=== PATIENT | male | born 1940 | race Caucasian/White ===

== ENCOUNTER → 2022-06-21 10:57 | Outpatient (BNVA) | payer MEDICARE, SELFPAY | PROVIDERS: PCP Internal Medicine; Visit Provider Nurse Practitioner Family | DX: F41.9 Anxiety disorder, unspecified (principal); R25.1 Tremor, unspecified; M54.2 Cervicalgia; Z63.6 Dependent relative needing care at home | CPT/HCPCS: 99202 ==

== ENCOUNTER 2023-12-09 10:39 | Outpatient (AMB) | payer MEDICARE, MEDICAID, SELFPAY ==
--- NOTE | 2023-12-09 11:08 | MHC.OFFVIS ---
Intake Vital Signs 12/09/23 11:29 Height 5 ft 8 in Weight 1754 lb BMI 266.7 BP 124/60 Blood Pressure Location Lt brachial Position Sitting Pulse 68 Pulse Source Pulse Oximeter Pulse Oximetry (%) 98 Oxygen Delivery Method Room Air Intake Visit Reasons: Follow up-CONF Intake Note: Patient presents for F/U. Looses balance occasionally ever since his surgery 05/25/23. Right hand shakes a little while drinking coffee and left hand shakes 2x. Allergies morphine Allergy (Severe, Verified 12/09/23 11:21) Nausea oxycodone [From PERCOCET] Allergy (Intermediate, Verified 12/09/23 11:21) VOMITING acetaminophen [Percocet] Allergy (Unknown, Verified 12/09/23 11:21) Rash peanut [PEANUT] Allergy (Unknown, Verified 12/09/23 11:21) UNKNOWN HPI HPI Comments History of Present Illness Details 83-yr-old male presents for f/u visit, accompanied by his dtr Anusha. Pt reports the following interval medical history changes: In June 2023, patient reports he collapsed at a function. He was brought to [facility], per patient he underwent cardiac stent placement x2 and a triple a repair. Recovery was complicated by renal failure, and he required ICU placement and a total of a 6 week hospitalization. He then did 3 weeks of post hospital rehab. He has since been returned home. He has recently completed cardiac rehab, and has graduated to do a step-down cardiac rehab program. He is followed by Dr. Hill at [facility]iology at the [facility]. He does also continue to have right flank pain since the hospitalization, was seen by renal and has been referred to urology. Since, he has not felt the same. Sometimes he is off balance. He is noticing some tremor. He is noticing more anxiety, also notes that he has lost his and his son in the last year. He wonders if there is a better medication for anxiety, he has been on citalopram 40 mg for years he states. ADL's: Ind Swallowing: Denies any issues Cough: Has had a cough in the last few months- since the sx Drooling: Denies any issues Orthostatic lightheadedness: Denies any issues Constipation: Denies any issues Urinary symptoms: Right flank pain- has seen renal and been referred to urology. Tremor: RUE tremor w/ drinking a cup of coffee. Twice has had marked LUE rest tremor Dyskinesia: Denies Stiffness: Denies Gait changes: Since the sx, can lose his balance, he attributes this to his right ankle. Freezing: Denies Falls: One recent fall- tripped over someone else's suitcase. Mood: Feeling some depression and anxiety Hallucinations: Denies Memory: No issues Sleep: Sleeping well Exercise: Has completed cardiac rehab- has graduated at 36 wks, and restarting step-down cardiac rehab- no longer needs heart monitor.. [facility] Medical History (Updated 06/21/22 @ 13:36 by ZARIA Cazares) Caregiver burden Trigeminal neuralgia Insomnia Erectile dysfunction Seizure DJD (degenerative joint disease) Hypercholesteremia GERD (gastroesophageal reflux disease) HTN (hypertension) Gout HLD (hyperlipidemia) Thoracic aortic aneurysm Moderate obstructive sleep apnea Chronic bronchitis CAD (coronary artery disease) ANTONY and COPD overlap syndrome Lumbar spinal stenosis Bilateral high frequency sensorineural hearing loss Surgical History H/O aortic valve repair Hx of appendectomy Hx of nasal septoplasty Hx of tonsillectomy Hx of cataract surgery History of carpal tunnel release Family History Mother Myocardial infarction Father Cirrhosis with alcoholism Maternal Grandmother Coronary artery disease Maternal Grandmother Coronary artery disease Brother No problems noted. Brother No problems noted. Brother No problems noted. Social History Patient Tobacco Use Status: Former Tobacco user Review of Systems Const All systems reviewed & are unremarkable except as noted in HPI and below Physical Exam Vital Signs: Last Vital Signs Pulse 68 12/09/23 11:29 BP 124/60 12/09/23 11:29 Pulse Ox 98 12/09/23 11:29 Oxygen Delivery Method Room Air 12/09/23 11:29 BMI result Body Mass Index 266.7 Const General: cooperative and no acute distress Resp Effort & Inspection: normal respiratory effort and able to speak in complete sentences Neuro Other: General: A&O x's 3 Expression: Intact Voice: Hoarse at times Tremor: Very mild LUE postural tremor. Tone: Mild left tone Dyskinesia: None FFM: Ok Foot taps: Slight decrease on left Gait: Stands easily, good stride, stride okay, possibly low floor clearance, a bit quick during turning otherwise steady gait. Psych: Pleasant affect Assessment & Plan Assessment & Plan (1) Tremor: Code(s): R25.1 - Tremor, unspecified (2) Anxiety: Code(s): F41.9 - Anxiety disorder, unspecified Plan As patient has had a recent cardiac event, it would be reasonable to wean patient off of citalopram 40 mg q.d., and cross titrate to duloxetine, which may help with pain and anxiety symptoms as well. Patient will discuss with his PCP, however if needed, we can make this transition for him. Continue cardiac rehab. Advised patient to take his turns more slowly. Tremor is mild, would not initiate anti tremor medication at this time. Follow up in 6 months or sooner as needed. Coding Level of Care Code Est Pt Level 3 (07875) Diagnoses Tremor R25.1 Anxiety F41.9
[2023-12-09 11:29] VITALS: BP 124/60; PULSE 68; O2SAT 98; BMI 266.7
== END 2023-12-09 12:14 | disposition home or self-care (01) ==
PROVIDERS: PCP Internal Medicine; Visit Provider Nurse Practitioner Family
DX: R25.1 Tremor, unspecified (principal); F41.9 Anxiety disorder, unspecified
CPT/HCPCS: 99213

== ENCOUNTER → 2023-12-09 10:39 | Outpatient (BNVA) | payer MEDICARE, MEDICAID, SELFPAY | PROVIDERS: PCP Internal Medicine; Visit Provider Nurse Practitioner Family | DX: R25.1 Tremor, unspecified (principal); F41.9 Anxiety disorder, unspecified | CPT/HCPCS: 99212 ==

== ENCOUNTER 2024-08-10 14:19 | Outpatient (AMB) | payer MEDICARE, MEDICAID, SELFPAY ==
--- NOTE | 2024-08-10 15:04 | MHC.OFFVIS ---
Vital Signs 08/10/24 15:05 Height 5 ft 8 in Weight 175 lb BMI 26.6 BP 144/62 H Blood Pressure Location Rt brachial Position Sitting Pulse 76 Pulse Source Pulse Oximeter Pulse Oximetry (%) 95 Oxygen Delivery Method Room Air Intake Visit Reasons: Follow up Sales Support Specialist Required: No Accompanied by: Self / Same As Patient Allergies morphine Allergy (Severe, Verified 08/10/24 15:08) Nausea oxycodone [From PERCOCET] Allergy (Intermediate, Verified 08/10/24 15:08) VOMITING acetaminophen [Percocet] Allergy (Unknown, Verified 08/10/24 15:08) Rash HPI Comments Details: 83-yr-old male presents for f/u visit for anxiety and tremors. Interval Medical History June 2023 Cardiac Strent Placement x 2 and a triple repair. ICU 6 weeks recovery then [address] Hill, [facility] Cardiology. Renal failure and R. flank pain, since hospitalization, seen by renal and referred to Urology. Says he as not felt the same since. He is off balance, notices tremors and more anxious sincel he lost his and son in the last year. He has been on Citalopram 40mg for years and wants something to take the edge off, as he has become less tolerable with not being able to find the remote and completing tasks. Mood, feels more anxious and depressed, easily triggered. 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 He is having difficulty with picking up a cup of coffee and using his knife and fork, utensils when he eats feels more tremulous. ADL's: Ind Swallowing: Denies any issues Cough: Denies Drooling: Denies any issues Orthostatic lightheadedness: Denies any issues Constipation: Denies any issues Urinary symptoms: Right flank pain- has seen renal and been referred to urology, Dr. Lynda Ellison. Tremor: RUE tremor w/ drinking a cup of coffee. Twice has had marked LUE rest tremor Dyskinesia: Denies Stiffness: Denies Gait changes: Since the sx, can lose his balance, difficult to lift his golf ball off the T when he bends down, d/t back pain. Freezing: Denies Falls: Denies Mood: Feeling depressed and anxious, irritable. Hallucinations: Denies Memory: Denies Sleep: Sleeping well Exercise: Has completed cardiac rehab- has graduated at 36 wks, and restarting step-down cardiac rehab- no longer needs heart monitor. [facility] Medical History (Updated 12/09/23 @ 17:27 by ZARIA Cazares) Caregiver burden Trigeminal neuralgia Insomnia Erectile dysfunction Seizure DJD (degenerative joint disease) Hypercholesteremia GERD (gastroesophageal reflux disease) HTN (hypertension) Gout HLD (hyperlipidemia) Thoracic aortic aneurysm Moderate obstructive sleep apnea Chronic bronchitis CAD (coronary artery disease) ANTONY and COPD overlap syndrome Lumbar spinal stenosis Bilateral high frequency sensorineural hearing loss Surgical History H/O aortic valve repair Hx of appendectomy Hx of nasal septoplasty Hx of tonsillectomy Hx of cataract surgery History of carpal tunnel release Family History Mother Myocardial infarction Father Cirrhosis with alcoholism Maternal Grandmother Coronary artery disease Maternal Grandmother Coronary artery disease Brother No problems noted. Brother No problems noted. Brother No problems noted. Social History Patient Tobacco Use Status: Former Tobacco user Review of Systems Const All systems reviewed & are unremarkable except as noted in HPI and below Physical Exam Vital Signs: Last Vital Signs Pulse 76 08/10/24 15:05 BP 144/62 H 08/10/24 15:05 Pulse Ox 95 08/10/24 15:05 Oxygen Delivery Method Room Air 08/10/24 15:05 BMI result Body Mass Index 26.6 Const General: cooperative and no acute distress Resp Effort & Inspection: normal respiratory effort and able to speak in complete sentences Neuro Other: General: A&O x's 3 Expression: Intact Voice: Hoarse at times Tremor: Very mild LUE postural tremor. Tone: Mild left tone Dyskinesia: None FFM: Ok Foot taps: Slight decrease on left Gait: Stands easily, good stride, stride okay, possibly low floor clearance, a bit quick during turning otherwise steady gait. Psych: Pleasant affect Psych Appearance: grossly normal Speech and movement: Normal speech and movement present Affect: Labile affect present Attitude: cooperative Thought process: Normal thought process present Thought content: Normal thought content present Insight: Good insight present (Psych) Judgement: Good judgement present (Psych) Results Reviewed Results Reviewed: Request notes from Urology. Assessment & Plan Assessment & Plan (1) Anxiety: Code(s): F41.9 - Anxiety disorder, unspecified Category: Medical (2) Tremor: Code(s): R25.1 - Tremor, unspecified Category: Medical (3) Cervicalgia: Comment: mild right sided neck stiffness at times- no UE numbness/paresthesias/weakness. Code(s): M54.2 - Cervicalgia Category: Medical Plan Gait, balance is off he is having difficulty with rising from a low seated position, picking up golf ball off the T. PT - Will Evaluate and Treat with Strength training exercises. Mood Depression, irritability, Anxiety. Will start him on Buspirone 5mg PO BID, wait two weeks to see if this helps if not will make a medication dose adjustment. BP Elevated Will have patient follow up with BP in [facility], when he is picking up his medications, and again at home after taking his BP meds as directed. Patient is encouraged to drink 24-48 ounces of water daily or increase the water intake as he is not well hydrated and tends to forget to drink water through the day. Monitor BP and follow up with PCP or Renal, if the BP is not well managed in 2 weeks. He can call us at the clinic for any questions he may have with medication dose adjustments. Follow up in 4 months for tremors. Orders: Orders PT Evaluation and Treatment 08/10/24 R25.1 - Tremor, unspecified Medications: New buspirone 5 mg PO BID 30 tabs 3RF F41.9 - Anxiety disorder, unspecified, R25.1 - Tremor, unspecified Coding Level of Care Code Est Pt Level 4 (97914) Diagnoses Anxiety F41.9 Tremor R25.1 Cervicalgia M54.2 Time Spent (min) 30 Comment worsening
[2024-08-10 15:05] VITALS: BP 144/62; PULSE 76; O2SAT 95; BMI 26.6
== END 2024-08-10 15:54 | disposition home or self-care (01) ==
PROVIDERS: PCP Internal Medicine; Visit Provider Physician Assistant Medical
DX: F41.9 Anxiety disorder, unspecified (principal); R25.1 Tremor, unspecified; M54.2 Cervicalgia
CPT/HCPCS: 99214

== ENCOUNTER → 2024-08-10 14:19 | Outpatient (BNVA) | payer MEDICARE, MEDICAID, SELFPAY | PROVIDERS: PCP Internal Medicine; Visit Provider Nurse Practitioner Family | DX: F41.9 Anxiety disorder, unspecified (principal); R25.1 Tremor, unspecified; M54.2 Cervicalgia | CPT/HCPCS: 99212 ==

== ENCOUNTER 2024-11-18 12:37 | Outpatient (AMB) | payer MEDICARE, MEDICAID, SELFPAY ==
--- NOTE | 2024-11-18 13:05 | A.OFFVIS_ITS ---
Vital Signs 11/18/24 13:06 Height 5 ft 8 in Weight 180 lb BMI 27.4 BP 160/80 H Blood Pressure Location Lt brachial Position Sitting Pulse 62 Pulse Oximetry (%) 92 Oxygen Delivery Method Room Air Intake Visit Reasons: 6 Month F/U Intake Note: Patient presents follow up Tremors Floor Winder Required: No Allergies morphine Allergy (Severe, Verified 11/18/24 13:07) Nausea oxycodone [From PERCOCET] Allergy (Intermediate, Verified 11/18/24 13:07) VOMITING acetaminophen [Percocet] Allergy (Unknown, Verified 11/18/24 13:07) Rash Medication List - Last Reconciled 11/18/24 by ZARIA Cazares acetaminophen 325 mg PO Q6H PRN albuterol sulfate 90 mcg/actuation 2 inhalations inhalation Q4H PRN aspirin 1 tab PO DAILY atorvastatin 40 mg PO DAILY buspirone 5 mg PO BID citalopram 40 mg PO DAILY citalopram orally daily; 30 mg qd x's 1 wk, 20 mg qd x's 1 wk, 10mg qd x's 1 wk, 5mg qd x's 1 wk, then stop. 28 days clorazepate dipotassium 7.5 mg PO BID duloxetine 30 mg PO DAILY 30 days nprvrzhrkwj-hibifnivj-jgbhnnmt 100-62.5-25 mcg (Trelegy Ellipta) 1 ea inhalation DAILY gabapentin 300 mg PO BID isosorbide mononitrate ER mg PO labetalol 100 mg PO BID latanoprost 0.005% 1 drp ophthalmic (eye) BEDTIME lorazepam 0.5 mg PO DAILY PRN losartan 50 mg PO DAILY nitroglycerin 0.4 mg sublingual omeprazole 40 mg PO DAILY Oxygen Home Use 2.5L pantoprazole 40 mg PO DAILY sertraline 50 mg PO DAILY tamsulosin 0.4 mg PO DAILY zolpidem 5 mg PO BEDTIME PRN HPI Comments Details: 84-yr-old male presents for f/u visit of tremor, balance issues, and mood. He was last seen 3 months ago by our colleague Polo ORDONEZ. Pt reports he did not start PT- did not hear. He does not believe that he started buspirone prescribed at the last visit- though notes he could use some help with anxiety. He has continued on citalopram 40 mg daily. He has cardiology appt next week to f/u on having 4 episodes of left sided chest pain last week. He also has endoscopy scheduled for f/u of chronic diffuse abd pain w/o constipation- though notes carafate and PPI is helping some. GI is [place] [facility]. ADL's: Ind Swallowing: Denies any issues Cough: Denies Drooling: Denies any issues Orthostatic lightheadedness: Denies any issues Constipation: Denies any issues Urinary symptoms: He is being followed by renal and urology- states recent CT showed 2 spots on his right kideny- states ? specifc dx. Has f/u w/ renal soon. Tremor: RUE tremor only w/ drinking a cup of coffee. Twice has had marked LUE rest tremor Dyskinesia: Denies Stiffness: Denies at this time Gait changes: SFeels his balance is better. Freezing: Denies Falls: Denies interval falls Mood: Feeling some depression and anxiety Hallucinations: Denies Memory: No issues Sleep: Sleeping well w/ zolpidem. Denies parasomnias. 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 Socialization: States since picking up this part-time job, he has made some friends through work, and has a new girlfriend Magda- though states this has caused some tension with his children. [facility] Medical History (Updated 11/18/24 @ 18:46 by ZARIA Cazares) Caregiver burden Trigeminal neuralgia Insomnia Erectile dysfunction Seizure DJD (degenerative joint disease) Hypercholesteremia GERD (gastroesophageal reflux disease) HTN (hypertension) Gout HLD (hyperlipidemia) Thoracic aortic aneurysm Moderate obstructive sleep apnea Chronic bronchitis CAD (coronary artery disease) ANTONY and COPD overlap syndrome Lumbar spinal stenosis Bilateral high frequency sensorineural hearing loss Surgical History H/O aortic valve repair Hx of appendectomy Hx of nasal septoplasty Hx of tonsillectomy Hx of cataract surgery History of carpal tunnel release Family History Mother Myocardial infarction Father Cirrhosis with alcoholism Maternal Grandmother Coronary artery disease Maternal Grandmother Coronary artery disease Brother No problems noted. Brother No problems noted. Brother No problems noted. Social History Patient Tobacco Use Status: Former Tobacco user Physical Exam Vital Signs: Last Vital Signs Pulse 62 11/18/24 13:06 BP 160/80 H 11/18/24 13:06 Pulse Ox 92 11/18/24 13:06 Oxygen Delivery Method Room Air 11/18/24 13:06 BMI result Body Mass Index 27.4 Const General: cooperative and no acute distress Resp Effort & Inspection: normal respiratory effort and able to speak in complete sentences Neuro Other: General: A&O x's 3 Expression: Intact Voice: Hoarse at times Tremor: Very mild LUE postural tremor. Writing sample: BUE Archimede's spiral, mild tremor still legible, more prominent left. Sentence overall legible without tremor. Tone: Mild BUE tone and elbows Dyskinesia: None FFM: Slight decreased some left. Foot taps: Slight decrease on left Gait: Stands easily, good stride, stride okay, overall steady gait Psych: Pleasant affect Assessment & Plan Assessment & Plan (1) Tremor: Comment: Possible ET plus with BUE left greater than right tremor, mild rigidity in elbows, mild left bradykinesia. Code(s): R25.1 - Tremor, unspecified Category: Medical (2) Anxiety: Code(s): F41.9 - Anxiety disorder, unspecified Category: Medical Plan Discussed again the as patient has ongoing anxiety, and episodes of chest pain with history of cardiac event, it would be reasonable to wean patient off of citalopram 40 mg q.d., and cross titrate to duloxetine, which may help with pain and anxiety symptoms as well. Discontinue buspirone order, as patient has not started it. Patient agrees to plan. Week 1 citalopram 40 mg daily- while waiting for new order to arrive. Week 2 citalopram 30 mg daily x1 week Week 3 citalopram 20 mg daily x1 week and start duloxetine 30 mg daily in the morning Week 4 citalopram 10 mg daily x1 week and continue duloxetine 30 mg daily in the morning Week 5 citalopram 5 mg daily x1 week then stop. And continue duloxetine 30 mg daily in the morning Week 6 duloxetine 30 mg daily in morning. Between week 5 and 6, we will reach out to patient to assess his status, which time we will consider increasing duloxetine further to 40-60 mg daily in a.m. Written instructions given to patient. Balance has improved, we will hold on PT order for now. Continue regular physical activity- within cardiology's recommendations. Continue regular cognitive and socially stimulating activities. Advised patient to take his turns more slowly. Tremor is mild, would not initiate anti tremor medication at this time. However, encouraged to use a covered coffee cup whenever drinking hot beverages. Follow-up with Cardiology, Nephrology, and endoscopy/GI as scheduled. Will follow-up upon review of above and patient to follow-up in clinic in 3-4 months or sooner prn. Medications: New citalopram orally daily; 30 mg qd x's 1 wk, 20 mg qd x's 1 wk, 10mg qd x's 1 wk, 5mg qd x's 1 wk, then stop. 28 days 49 tabs 0RF duloxetine 30 mg PO DAILY 30 days 30 caps 1RF Coding Level of Care Code Est Pt Level 4 (21278) Diagnoses Tremor R25.1 Anxiety F41.9
[2024-11-18 13:06] VITALS: BP 160/80; PULSE 62; O2SAT 92; BMI 27.4
--- OUTSIDE RECORDS SUMMARY | 2024-11-18 14:58 | XMS_ITS | Encounter Summary ---
Author Organization [facility] Address [address] [place] [address] Care Team Providers Care Electrician Ship Name Role Phone Rafael Angeles MD Primary Care Provider [phone] Rafael Angeles MD Primary Care Provider [phone] Olga Villareal MD Unavailable [phone] Rafy Dawkins Unavailable Alana Quiñonez NP Unavailable [phone] Encounter Details Date Type Department Care Team Description 12/18/2018 [facility] Medical Records [address] [place] [id number] Nomi Dias MD [address] [place] [phone] Social History Tobacco Use Types Packs/Day Years Used Date Smoking Tobacco: Former Cigarettes 1 29 0 1957 - 09/01/1985 Smokeless Tobacco: Never Alcohol Use Standard Drinks/Week Comments Yes 0 (1 standard drink = 0.6 oz pur e alcohol) socially Sex Assigned at Date Recorded Male 04/05/2020 7:18 AM E [employer] Job Start Date Occupation Industry Not on file Not on file Not on file documented as of this encounter Plan of Treatment Not on file documented as of this encounter Visit Diagnoses Not on filedocumented in this encounter Care Teams Electrician Ship Relationship Specialty Start Date End Date Rafael Angeles MD [address] [place] [phone] PCP - General Internal Medicine 03/16/20 Rafael Angeles MD [address] [place] [address] [phone] PCP - General 04/01/16 03/15/20 Olga Villareal MD [address] [place] [address] Specialist Cardiology 07/18/21 Rafy Dawkins PA [address] [place] [phone] Specialist Cardiology 07/18/21 05/13/24 Alana Quiñonez, JOVANNA [address] [place] [address] [facility] [place] [address] Cardiology 10/21/23 documented as of this encounter
--- OUTSIDE RECORDS SUMMARY | 2024-11-18 14:58 | XMS_ITS | Encounter Summary ---
Author Organization [facility] Address [address] [place] [address] Care Team Providers Care Senior Program Analyst Name Role Phone Rafael Angeles MD Primary Care Provider Olga Villareal MD Unavailable [phone] Rafy Dawkins Unavailable Alana Quiñonez NP Unavailable [phone] Encounter Details Date Type Department Care Team Description 01/29/2022 Telephone Adult Medicine [address] [id number] Alana Franklin PA-C Social History Tobacco Use Types Packs/Day Years [...] file Not on file Not on file COVID-19 Exposure Response Date Recorded In the last 10 days, have yo u been in contact with someone who was confirmed or suspected to have Coronavirus/COVID-19? No / Unsure 01/29/2022 3:03 PM EDT documented as of this encounter Miscellaneous Notes * Telephone Encounter - Alana Franklin PA-C - 01/29/2022 10:20 PM EDT Can you please call tamiko with Users[employer] message from hip xray. He has not read the message. Hi Garo, ?? XRay of the hip itself is normal. There is some inflammation around the SI joint like we suspected and discussed in the office today. While you cannot take NSAIDs orally for inflammation, you would likely benefit from a short course of presnisone which you have taken in the past and can also help with inflammation of the joint and nerve. I am going to prescribe you 40mg of prednisone (2 20mg tabstaken together with breakfast) for 5 days. Take this first thing in the morning with food. It may make you jittery and can cause some swelling, increased appetite, and irritability. It is safe to continue with the tylenol and topical diclofenac. I am also going to refer you to physical therapy. Youcan call them to schedule an appointment in our [place] office. The number is [phone]. ?? If symptoms are not improving, please let me know. It was nice seeing you today. ?? Thank you Alana Franklin PA-C documented in this encounter Plan of Treatment Not on file documented as of this encounter Visit Diagnoses Not on filedocumented in this encounter Care Teams Senior Program Analyst Relationship Specialty Start Date End Date Rafael Angeles MD [address] [place] [phone] PCP - General Internal Medicine 03/16/20 Olga Villareal MD [address] [place] [phone] Specialist Cardiology 07/18/21 Rafy Dawkins PA [address] [place] [phone] Specialist Cardiology 07/18/21 05/13/24 Alana Quiñonez NP [address] [place] [address] [facility] [place] [address] Cardiology 10/21/23 documented as of this encounter
--- OUTSIDE RECORDS SUMMARY | 2024-11-18 14:58 | XMS_ITS | Encounter Summary ---
Author Organization [email or web address] [facility] Address [address] [place] [address] Care Team Providers Care Kayak Maker Name Role Phone Rafael Angeles MD Primary Care Provider Rafael Angeles MD Primary Care Provider [phone] Olga Villareal MD Unavailable [phone] Rafy Dawkins Unavailable Alana Quiñonez NP Unavailable [phone] Encounter Details Date Type Department Care Team Description 12/14/2016 Refill Adult Medicine [address] [phone] Zack Mora MD Social History Tobacco Use Types Packs/Day Years Used Date Smoking Tobacco: Former Cigarettes Q uit: 09/01/1985 Smokeless Tobacco: Never Comments:quit 25 yrs ago Alcohol Use Standard Drinks/Week Comments Yes 0 (1 standard drink = 0.6 oz pur e alcohol) 1 glass per day Sex Assigned at Date Recorded Male 04/05/2020 7:18 AM E DT Job Start Date Occupation Industry Not on file Not on file Not on file documented as of this encounter Miscellaneous Notes * Telephone Encounter - Zack Mora MD - 12/16/2016 5:29 PM EDT The patient is on diltiazem. He is switched over to 20 mg of Lipitor from 40 mg of simvastatin. 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 * Telephone Encounter - Viviana Barrera M.A. - 12/14/2016 4:45 PM EDT Component Value Date CHOL 150 01/19/2016 LDL 70 01/19/2016 HDL 64 01/19/2016 TRIG 82 01/19/2016 SGOT 26 01/19/2016 SGPT 22 01/19/2016 Last ov with pcp 11/06/16 * Telephone Encounter - Viviana Barrera M.A. - 12/14/2016 4:45 PM EDTFrom: Garo Davis To: Zack Mora MD Sent: 12/14/2016 8:11 AM EDT Subject: Medication Renewal Request Original authorizing provider: MD Garo Nagel would like a refill of the following medications: simvastatin (ZOCOR) 40 MG tablet [Zack Mora MD] Preferred pharmacy: [facility] [address] [place] [address]; LIN Comment: Medication renewals requested in this message routed to other providers: valsartan (DIOVAN) 160 MG tablet [Casi Raymond PA-C] documented in this encounter Plan of Treatment Not on file documented as of this encounter Visit Diagnoses Not on filedocumented in this encounter Care Teams Kayak Maker Relationship Specialty Start Date End Date Rafael Angeles MD [address] [place] [address] 22458 PCP - General Internal Medicine 03/16/20 Rafael Angeles MD [address] [place] [address] 12093 PCP - General 04/01/16 03/15/20 Olga Villareal MD [address] [place] [address] 41518 Specialist Cardiology 07/18/21 Rafy Dawkins PA [address] [place] [address] Specialist Cardiology 07/18/21 05/13/24 Alana Quiñonez NP [address] [place] [address] [facility] [place] [address] Cardiology 10/21/23 documented as of this encounter
--- OUTSIDE RECORDS SUMMARY | 2024-11-18 14:58 | XMS_ITS | Encounter Summary ---
Author Organization [facility] Address [address] [place] [address] Care Team Providers Care Studio Producer Name Role Phone Rafael Angeles MD Primary Care Provider [phone] Olga Villareal MD Unavailable [phone] Rafy Dawkins Unavailable Alana Quiñonez NP Unavailable Reason for Visit * Reason Onset Date Comments Mychart Rx Refill 04/11/2024 Encounter Details Date Type Department Care Team Description 04/11/2024 Refill Adult Medicine [address] [phone] Rafael Angeles MD [address] [place] [address] [phone] Mychart Rx Refill Social History Tobacco Use Types Packs/Day Years [...] encounter Miscellaneous Notes * Telephone Encounter - Viviana Barrera M.A. - 04/12/2024 11:01 AM EDT Lab Results Component Value Date NA 140 04/09/2024 K 4.0 04/09/2024 CO2 24 04/09/2024 CL 107 04/09/2024 BUN 14 04/09/2024 CREAT 1.11 04/09/2024 GLU 88 04/09/2024 CA 8.6 04/09/2024 GFR 66 04/09/2024 Pending appt 05/24/24 Last appt 04/09/24 documented in this encounter Plan of Treatment Not on file documented as of this encounter Visit Diagnoses Not on filedocumented in this encounter Care Teams Studio Producer Relationship Specialty Start Date End Date Rafael Angeles MD [address] [place] [address] 85797 PCP - General Internal Medicine 03/16/20 Olga Villareal MD [address] [place] [address] 20229 Specialist Cardiology 07/18/21 Rafy Dawkins PA [address] [place] [address] 96686 Specialist Cardiology 07/18/21 05/13/24 Alana Quiñonez NP [address] [place] [address] Dr [facility] [place] [place] [address] Cardiology 10/21/23 documented as of this encounter
--- OUTSIDE RECORDS SUMMARY | 2024-11-18 14:58 | XMS_ITS | Encounter Summary ---
Author Organization [facility] Address [address] [place] [address] Care Team Providers Care Home Security Alarm Installer Name Role Phone Rafael Angeles MD Primary Care Provider [phone] Rafael Angeles MD Primary Care Provider [phone] Olga Villareal MD Unavailable [phone] Rafy Dawkins Unavailable Alana Quiñonez NP Unavailable [phone] Encounter Details Date Type Department Care Team Description 11/25/2018 Release of Information Medical Records [address] [place] [id number] Abstract, Provider Social History Tobacco Use Types Packs/Day Years Used Date Smoking Tobacco: Former Cigarettes 1 29 0 1957 - 09/01/1985 Smokeless Tobacco: Never Alcohol Use Standard Drinks/Week Comments Yes 0 (1 standard drink = 0.6 oz pur e alcohol) 1-2 glass per day Sex Assigned at Date Recorded Male 04/05/2020 7:18 AM E DT Job Start Date Occupation Industry Not on file Not on file Not on file documented as of this encounter Plan of Treatment Not on file documented as of this encounter Visit Diagnoses Not on filedocumented in this encounter Care Teams Home Security Alarm Installer Relationship Specialty Start Date End Date Rafael Angeles MD [address] [place] [address] 68064 PCP - General Internal Medicine 03/16/20 Rafael Angeles MD [address] [place] [address] 64581 PCP - General 04/01/16 03/15/20 Olga Villareal MD [address] [place] [address] [phone] Specialist Cardiology 07/18/21 Rafy Dawkins PA [address] [place] [address] [phone] Specialist Cardiology 07/18/21 05/13/24 Alana Quiñonez, JOVANNA [address] [place] [address] [facility] [place] [address] Cardiology 10/21/23 documented as of this encounter
--- OUTSIDE RECORDS SUMMARY | 2024-11-18 14:58 | XMS_ITS | Encounter Summary ---
Author Organization [facility] Address [address] [place] [address] Care Team Providers Care Kit Planner Name Role Phone Rafael Angeles MD Primary Care Provider Rafael Angeles MD Primary Care Provider Olga Villareal MD Unavailable Rafy Dawkins Unavailable Alana Quiñonez NP Unavailable [phone] Encounter Details Date Type Department Care Team Description 11/11/2018 [facility] Medical Records [address] [place] [address] Abstract, Provider Social History Tobacco Use Types [...] on filedocumented in this encounter Care Teams Kit Planner Relationship Specialty Start Date End Date Rafael Angeles MD [address] [place] [address] 70198 PCP - General Internal Medicine 03/16/20 Rafael Angeles MD [address] [place] [address] 74628 PCP - General 04/01/16 03/15/20 Olga Villareal MD [address] [place] [address] [phone] Specialist Cardiology 07/18/21 Rafy Dawkins PA [address] [place] [address] [phone] Specialist Cardiology 07/18/21 05/13/24 Alana Quiñonez, JOVANNA [address] [place] [address] [facility] [place] [address] Cardiology 10/21/23 documented as of this encounter
--- OUTSIDE RECORDS SUMMARY | 2024-11-18 14:58 | XMS_ITS | Encounter Summary ---
Author Organization [facility] Address [address] [place] [address] Care Team Providers Care Family Development Extension Specialist Name Role Phone Rafael Angeles MD Primary Care Provider Olga Villareal MD Unavailable [phone] Rafy Dawkins Unavailable Alana Quiñonez NP Unavailable Encounter Details Date Type Department Care Team Description 12/01/2023 Refill Pulmonology - [place] [address] [facility] [address] [place] [address] Natalia Winston APRN [address] [facility] [address] [place] [address] Social History Tobacco Use Types Packs/Day Years [...] encounter Miscellaneous Notes * Telephone Encounter - Amandeep Dawkins CMA - 12/01/2023 9:22 AM EDT IZABELLA 08/18/23 NOV 02/17/24 documented in this encounter Plan of Treatment Not on file documented as of this encounter Visit Diagnoses Diagnosis Chronic obstructive pulmonary disease, unspecified COPD type (HCC) documented in this encounter Care Teams Family Development Extension Specialist Relationship Specialty Start Date End Date Rafael Angeles MD [address] [place] [address] 28658 PCP - General Internal Medicine 03/16/20 Olga Villareal MD [address] [place] [address] 72731 Specialist Cardiology 07/18/21 Rafy Dawkins PA [address] [place] [address] 54742 Specialist Cardiology 07/18/21 05/13/24 Alana Quiñonez, JOVANNA [address] [place] [address] [facility] [place] [address] Cardiology 10/21/23 documented as of this encounter
--- OUTSIDE RECORDS SUMMARY | 2024-11-18 14:58 | XMS_ITS | Encounter Summary ---
Author Organization [facility] Address [address] [place] [address] Care Team Providers Care Fibreglass Gun Hand Name Role Phone Rafael Angeles MD Primary Care Provider Olga Villareal MD Unavailable [phone] Rafy Dawkins Unavailable Alana Quiñonez NP Unavailable [phone] Encounter Details Date Type Department Care Team Description 10/30/2023 Telephone Adult Medicine [address] [phone] Rafael Angeles MD [address] [place] [address] [phone] Social History Tobacco Use Types Packs/Day Years [...] encounter Miscellaneous Notes * Telephone Encounter - Ned Crocker - 10/30/2023 4:39 PM EST N/a documented in this encounter Plan of Treatment Not on file documented as of this encounter Visit Diagnoses Not on filedocumented in this encounter Care Teams Fibreglass Gun Hand Relationship Specialty Start Date End Date Rafael Angeles MD [address] [place] [address] [phone] PCP - General Internal Medicine 03/16/20 Olga Villareal MD [address] [place] [address] [phone] Specialist Cardiology 07/18/21 Rafy Dawkins PA [address] [place] [address] [phone] Specialist Cardiology 07/18/21 05/13/24 Alana Quiñonez NP [address] [place] [address] [facility] [place] [address] Cardiology 10/21/23 documented as of this encounter
--- OUTSIDE RECORDS SUMMARY | 2024-11-18 14:58 | XMS_ITS | Encounter Summary ---
Author Organization [facility] Address [address] [place] [address] Care Team Providers Care Public Accountant Name Role Phone Rafael Angeles MD Primary Care Provider Olga Villareal MD Unavailable [phone] Rafy Dawkins Unavailable Alana Quiñonez NP Unavailable [phone] Encounter Details Date Type Department Care Team Description 04/21/2024 Pt. Non Urgent Medical Question Adult Medicine [address] [phone] Rafael Angeles MD [address] [place] [address] [phone] Social History Tobacco Use Types Packs/Day Years [...] encounter Miscellaneous Notes * Telephone Encounter - Luisa Bush M.A. - 04/21/2024 12:35 PM EDTFrom: Garo Susan To: Patrice Angeles Sent: 04/21/2024 12:18 PM EDT Subject: Pantoprazole Dr. Karthik I was in the emergency room on Friday regarding my stomach issues. They informed me to continue with Pantoprazole. I need a refill Please. thank You Garo documented in this encounter Plan of Treatment Not on file documented as of this encounter Visit Diagnoses Not on filedocumented in this encounter Care Teams Public Accountant Relationship Specialty Start Date End Date Rafael Angeles MD [address] [place] [address] 36766 PCP - General Internal Medicine 03/16/20 Olga Villareal MD [address] [place] [address] [phone] Specialist Cardiology 07/18/21 Rafy Dawkins PA [address] [place] [address] 35912 Specialist Cardiology 07/18/21 05/13/24 Alana Quiñonez, JOVANNA [address] [place] [address] [facility] [place] [address] Cardiology 10/21/23 documented as of this encounter
--- OUTSIDE RECORDS SUMMARY | 2024-11-18 14:58 | XMS_ITS | Encounter Summary ---
Author Organization [facility] Address [address] [place] [address] Care Team Providers Care Railway Switchman Name Role Phone Rafael Angeles MD Primary Care Provider [phone] Rafael Angeles MD Primary Care Provider [phone] Olga Villareal MD Unavailable [phone] Rafy Dawkins Unavailable Alana Quiñonez NP Unavailable [phone] Encounter Details Date Type Department Care Team Description 11/23/2018 Lens Grinding Machine Operator Report Medical Records [address] [place] [address] Lyle Pitt MD Social History Tobacco Use Types Packs/Day [...] on filedocumented in this encounter Care Teams Railway Switchman Relationship Specialty Start Date End Date Rafael Angeles MD [address] [place] [address]20 PCP - General Internal Medicine 03/16/20 Rafael Angeles MD [address] [place] [address] 06566 PCP - General 04/01/16 03/15/20 Olga Villareal MD [address] [place] [address] [phone] Specialist Cardiology 07/18/21 Rafy Dawkins PA [address] [place] [address] [phone] Specialist Cardiology 07/18/21 05/13/24 Alana Quiñonez, JOVANNA [address] [place] [address] [facility] [place] [address] Cardiology 10/21/23 documented as of this encounter
--- OUTSIDE RECORDS SUMMARY | 2024-11-18 14:58 | XMS_ITS | Encounter Summary ---
Author Organization [facility] Address [address] [place] [address] Care Team Providers Care Barrow Worker Name Role Phone Rafael Angeles MD Primary Care Provider Olga Villareal MD Unavailable [phone] Rafy Dawkins Unavailable Alana Quiñonez NP Unavailable [phone] Encounter Details Date Type Department Care Team Description 04/26/2024 Telephone Gastroenterology - [place] [address] [facility] [address] [place] [phone] Khanh Freeman PA-C [address] [address] Social History Tobacco Use Types Packs/Day Years [...] encounter Miscellaneous Notes * Telephone Encounter - Jeannie Hatch - 04/28/2024 4:12 PM EDT forms are in your bin for review, thanks. * Telephone Encounter - Khanh Freeman PA-C - 04/26/2024 6:02 PM EDT Patient was seen at [facility] ER on April 20. Please obtain results. Thank you documented in this encounter Plan of Treatment Not on file documented as of this encounter Visit Diagnoses Not on filedocumented in this encounter Care Teams Barrow Worker Relationship Specialty Start Date End Date Rafael Angeles MD [address] [place] [address]703 PCP - General Internal Medicine 03/16/20 Olga Villareal MD [address] [place] [address] 34860 Specialist Cardiology 07/18/21 Rafy Dawkins PA [address] [place] [address] 11206 Specialist Cardiology 07/18/21 05/13/24 Alana Quiñonez, JOVANNA [address] [place] [address] [facility] [place] [place] [address] Cardiology 10/21/23 documented as of this encounter
--- OUTSIDE RECORDS SUMMARY | 2024-11-18 14:58 | XMS_ITS | Encounter Summary ---
Author Organization [facility] Address [address] [place] [address] Care Team Providers Care Gold Nib Grinder Name Role Phone Rafael Angeles MD Primary Care Provider [phone] Olga Villareal MD Unavailable [phone] Rafy Dawkins Unavailable Alana Quiñonez NP Unavailable [phone] Encounter Details Date Type Department Care Team Description 10/13/2023 Pt. Referral Request [facility] [place] [address] [place] [address] Md [place] Social History Tobacco Use Types Packs/Day Years [...] on filedocumented in this encounter Care Teams Gold Nib Grinder Relationship Specialty Start Date End Date Rafael Angeles MD [address] [place] [address] PCP - General Internal Medicine 03/16/20 Olga Villareal MD [address] [place] [address] 27968 Specialist Cardiology 07/18/21 Rafy Dawkins PA [address] [facility] [place] [address] Specialist Cardiology 07/18/21 05/13/24 Alana Quiñonez, JOVANNA [address] [place] [address] [facility] [place] [address] Cardiology 10/21/23 documented as of this encounter
--- OUTSIDE RECORDS SUMMARY | 2024-11-18 14:58 | XMS_ITS | Encounter Summary ---
Author Organization [facility] Address [address] [place] [address] Care Team Providers Care Paste Mixer Liquid Name Role Phone Rafael Angeles MD Primary Care Provider [phone] Olga Villareal MD Unavailable [phone] Rafy Dawkins Unavailable Alana Quiñonez NP Unavailable [phone] Encounter Details Date Type Department Care Team Description 02/14/2021 Telephone Adult Medicine [address] [phone] Rafael Angeles MD [address] [place] [address] [phone] Social History Tobacco Use Types Packs/Day Years [...] Exposure Response Date Recorded In the last month, have you been in contact with someone who was confirmed or suspected to have Coronavirus / COVID-19? Unable to assess 01/15/2021 11:02 AM EDT documented as of this encounter Miscellaneous Notes * Telephone Encounter - Chidi Lewis M.A. - 02/14/2021 12:00 PM EDT Pt scheduled w/ Dr. Angeles for 05/24/21. * Telephone Encounter - Chidi Lewis M.A. - 02/14/2021 12:00 PM EDT ----- Message from Garo Davis sent at 02/06/2021 8:45 AM EDT ----- Regarding: RE:Appointment needed Book my Appt. with Alana. Thank You documented in this encounter Plan of Treatment Not on file documented as of this encounter Visit Diagnoses Not on filedocumented in this encounter Care Teams Paste Mixer Liquid Relationship Specialty Start Date End Date Rafael Angeles MD [address] [place] [address] 52914 PCP - General Internal Medicine 03/16/20 Olga Villareal MD [address] [place] [address] 63596 Specialist Cardiology 07/18/21 Rafy Dawkins PA [address] [place] [address] 73126 Specialist Cardiology 07/18/21 05/13/24 Alana Quiñonez, JOVANNA [address] [place] [address] [facility] [place] [address] Cardiology 10/21/23 documented as of this encounter
--- OUTSIDE RECORDS SUMMARY | 2024-11-18 14:58 | XMS_ITS | Encounter Summary ---
Author Organization [facility] Address [address] [place] [address] Care Team Providers Care Waitstaff Name Role Phone Rafael Angeles MD Primary Care Provider [phone] Olga Villareal MD Unavailable [phone] Rafy Dawkins Unavailable Alana Quiñonez NP Unavailable [phone] Encounter Details Date Type Department Care Team Description 08/12/2023 [facility] Medical Records [address] [place] [phone] Abstract, Provider Social History Tobacco Use Types [...] on filedocumented in this encounter Care Teams Waitstaff Relationship Specialty Start Date End Date Rafael Angeles MD [address] [place] [address] PCP - General Internal Medicine 03/16/20 Olga Villareal MD [address] [place] [address] 0[address]20 Specialist Cardiology 07/18/21 Rafy Dawkins PA [address] [place] [address] Specialist Cardiology 07/18/21 05/13/24 Alana Quiñonez NP [address] [place] [address] Dr [facility] [place] [address] Cardiology 10/21/23 documented as of this encounter
--- OUTSIDE RECORDS SUMMARY | 2024-11-18 14:58 | XMS_ITS | Encounter Summary ---
Author Organization [place] [address] Care Team Providers Care Supervisor Winter Name Role Phone Rafael Angeles MD Primary Care Provider [phone] Reason for Visit * Reason Onset Date Comments Chest Pain 09/29/2024 Encounter Details Date Type Department Care Team (Late st Contact Info) Description 09/29/2024 Nurse Triage Adult Medicine [address] [phone] Rafael Angeles MD [address] [place] [id number] Chest Pain Social History Tobacco Use Types Packs/Day Years Used Date Smoking Tobacco: Former Cigarettes 1 28.5 0 1957 - 09/01/1985 Smokeless Tobacco: Never Alcohol Use Standard Drinks/Week Comments Yes 0 (1 standard drink = 0.6 oz pur e alcohol) Sex and Gender Information Value Date Recorded Sex Assigned at Not on file Legal Sex Male 10:46 AM EST Gender Identity Not on file Sexual Orientation Not on file documented as of this encounter Progress Notes * Rama Morales RN - 09/29/2024 4:18 PM EST Called pt and advised him to go to the ER for further evaluation and treatment r/t his age an risk factors per Radha Rm. He is not in agreement with this plan. Pt advised his appointment tomorrow has been cancelled. * MERY Oh - 09/29/2024 4:16 PM EST Patient needs to go to ER for work up/evaluation of his chest pain. Thank you * Rama Morales RN - 09/29/2024 4:02 PM EST An appointment was made for him to be seen in the office tomorrow at 11:30 am with Regine Smith andhe is in agreement with this plan. His BP over the past 3 days has been; 09/29/24 150/74, 77; 09/28/24 156/77, 75 and 09/27/24 165/75, 77. Reason for Disposition [1] Chest pain lasting < 5 minutes AND [2] has not taken prescribed nitroglycerin Answer Assessment - Initial Assessment Questions 1. LOCATION: Where does it hurt? He is reporting left sided chest pain 2. RADIATION: Does the pain go anywhere else? (e.g., into neck, jaw, arms, back) No radiation 3. ONSET: When did the chest pain begin? (Minutes, hours or days) Last episode was today. He had another episode last week. 4. PATTERN: Does the pain come and go, or has it been constant since it started? Does it get worse with exertion? Intermittent. He states the pain lasts < 2 seconds and subsides. He is reporting 1 episode a daytoday and one day last week 5. DURATION: How long does it last (e.g., seconds, minutes, hours) 1-2 seconds 6. SEVERITY: How bad is the pain? (e.g., Scale 1-10; mild, moderate, or severe) - MILD (1-3): Doesn't interfere with normal activities. - MODERATE (4-7): Interferes with normal activities or awakens from sleep. - SEVERE (8-10): Excruciating pain, unable to do any normal activities. He rates the pain as 8/10 7. CARDIAC RISK FACTORS: Do you have any history of heart problems or risk factors for heart disease? (e.g., angina, prior heart attack; diabetes, high blood pressure, high cholesterol, smoker, or strong family history of heart disease) He has HTN, angina years ago, s/p TAVR 8. PULMONARY RISK FACTORS: Do you have any history of lung disease? (e.g., blood clots in lung, asthma, emphysema, control pills) COPD. No history of blood clots in his lungs 9. CAUSE: What do you think is causing the chest pain? Unknown 10. OTHER SYMPTOMS: Do you have any other symptoms? (e.g., dizziness, nausea, vomiting, sweating,fever, difficulty breathing, cough) No other symptoms 11. : Is there any chance you are ? When was your last menstrual period? No . He is reporting increased stress r/t family stressors. Protocols used: Chest Pain-A-AH * Talia Denson - 09/29/2024 3:47 PM EST Patient call requires triage: Symptoms patient is presenting C/O random pains in chest no other symptoms How long has patient had these symptoms?: at least 2 months For ALL patients calling to schedule any appointment (routine, sick visit, follow up, consult, etc.) in the outpatient setting please ask the following questions: Do you have fever of higher than 101, sore throat with difficulty swallowing or severe shortness ofbreath? no If YES to any of these above symptoms, send a message to triage and do not book. Red dot. If no, an audio or video visit should be booked. Have you had close contact with someone with Coronavirus in the last 14 days? no Have you traveled abroad? no Have you traveled recently to another state outside of [place], [place], [place], [place], [place], [place], [place]? no o If yes, did you quarantine for 14 days or have a negative covid test? no If yes to any of the above, patient is not to be scheduled in office until after 14 day quarantine or negative covid test. If pain or injury related was it due to an accident at work or from a motor vehicle accident? If yes, date of accident/Injury: No If yes, gather [employer] insurance information [employer] Party Information: not applicable PCP: Rafael Angeles MD Payor: [employer] / Plan: [facility] MED[facility]VANTAGE / Product Type: *No Product type* / documented in this encounter Plan of Treatment Upcoming Encounters Date Type Department Care Team (Late st Contact Info) Description 11/22/2024 8:50 AM EDT Office Visit [facility] Cardiology [facility] [address] [facility] [address] [place] [phone] Olga Villareal MD [address] [place] [address] 11/23/2024 1:40 PM EDT Consult Gastroenterology - [place] [address] [place] [phone] Indiana Zamarripa NP 175 [facility] 200 [place] [address] 11/30/2024 11:30 AM EDT Office Visit Adult Medicine [address] [phone] Rafael Angeles MD [address] [place] [phone] 12/07/2024 12:00 PM EDT Ancillary Procedure [facility] Cardiology [facility] [address] [facility] 101 [place] [address] 02/25/2025 11:00 AM EDT Office Visit Adult Medicine [facility] [address] [place] [phone] Rafael Angeles MD [address] [place] [phone] 05/03/2025 2:00 PM EDT Office Visit Pulmonolgy - [place] 175 [facility] 200 [place] [phone] Natalia Winston, PRIZE JACKER [address] [place] [address] [place] [address] 05/23/2025 11:00 AM EDT Ancillary Procedure [facility] [address] [place] [phone] documented as of this encounter Visit Diagnoses Not on filedocumented in this encounter Care Teams Supervisor Winter Relationship Specialty Start Date End Date Rafael Angeles MD [address] [place] [phone] PCP - General Internal Medicine 05/07/14 documented as of this encounter
--- OUTSIDE RECORDS SUMMARY | 2024-11-18 14:58 | XMS_ITS | Continuity of Care Document ---
Author Organization [facility] Address [address] [place] [address]- Care Team Providers Care Contact Center Professional Name Role Phone Karthik BAUER MD, Rafael Flores Primary Care Physician [phone] Encounter [facility] Date(s): 11/09/24 - 11/09/[address] [address]- Encounter Diagnosis Abdominal pain(Final) - 11/09/24 Discharge Disposition: A-D/C Home Attending Physician: Donnie MENDOZA, Ferny Agarwal Admitting Physician: Ferny Fields MD Referring Physician: Not on Staff, Referring MD Encounter Type: Disch ES Allergies, Adverse Reactions, Alerts Substance Criticality Severity Reaction Reaction Severity Status morphine Active Immunizations Given and Recorded Vaccine Date Status Refusal Reason SARS-CoV-2 (COVID-19) mRNA BNT-162b2 vac 10/25/20 Given Medications Ambien 5 mg oral tablet 1 tablet = 5 mg, By Mouth, Daily at bedtime, PRN as needed for insomnia, 0 Refills, Maintenance, 09/30/19 5:29:00 PM EST Start Date: 09/30/19 Status: Ordered Repeat number: 1 aspirin 81 mg oral tablet 1 tablet = 81 mg, By Mouth, Daily, 0 Refills, Maintenance, 04/02/16 11:27:29 PM EDT Start Date: 04/02/16 Status: Ordered Repeat number: 1 atorvastatin 10 mg oral tablet 1 tablet = 10 mg, By Mouth, Daily, 0 Refills, Maintenance, 11/09/24 12:40:00 PM EDT, Partial fill upon patient request if the prescription is for a schedule II opioid drug. Start Date: 11/09/24 Status: Ordered Repeat number: 1 Carafate 1 gm/10 ml oral suspension 10 mL = 1 Gm, By Mouth, 3 times a day before meals and bedtime, # 200 mL, 0 Refills, Maintenance, 11/09/24 7:24:00 PM EDT, [id number], Partial fill upon patient request if the prescription is for a schedule II opioid drug., 172, cm, 11/09/24 12:43:00 EDT, Height, 80.3, kg, 11/09/24 1 2:43:00 EDT, Dry Weight Start Date: 11/09/24 Stop Date: 11/14/24 Status: Ordered Quantity: 200.0 Unit: mL Repeat number: 1 citalopram 20 mg oral tablet 40 mg, 2, tablet, By Mouth, Daily, Refills 0, Maintenance, 10/03/17 1:13:00 PM EST Start Date: 10/03/17 Status: Ordered Repeat number: 1 clorazepate 7.5 mg oral tablet 1 tablet = 7.5 mg, By Mouth, 2 times a day, 0 Refills, Maintenance, 04/02/16 11:29:35 PM EDT Start Date: 04/02/16 Status: Ordered Repeat number: 1 diclofenac 1% topical gel APPLY 4 GRAMS TOPICALLY TO THE AFFECTED AREA FOUR TIMES DAILY NEEDED FOR JOINT PAIN Start Date: 05/04/24 Status: Ordered Repeat number: 1 Famotidine 0 Refills, Maintenance, 11/09/24 12:39:00 PM EDT, Partial fill upon patient request if the prescription is for a schedule II opioid drug. Start Date: 11/09/24 Status: Ordered Repeat number: 1 gabapentin 300 mg oral capsule 300 mg, 1, capsule, By Mouth, 2 times a day, Refills 0, Maintenance, 04/02/16 11:29:57 PM EDT Start Date: 04/02/16 Status: Ordered Repeat number: 1 labetalol 100 mg oral tablet = 100 mg, By Mouth, 2 times a day, 0 Refills, Maintenance, 07/11/23 8:57:00 AM EST, Tablet, Partialfill upon patient request if the prescription is for a schedule II opioid drug. Start Date: 07/11/23 Status: Ordered Repeat number: 1 LORazepam 0.5 mg oral tablet 1 tablet = 0.5 mg, By Mouth, 2 times a day, PRN as needed for anxiety, 0 Refills, Maintenance, 07/10/21 2:16:00 PM EST, Tablet, Partial fill upon patient request if the prescription is for a schedule II opioid drug. Start Date: 07/10/21 Status: Ordered Repeat number: 1 nitroglycerin 0.[address] 1 TABLET UNDER THE TONGUE EVERY 5 MINUTES NEEDED FOR CHEST PAIN Start Date: 05/04/24 Status: Ordered Repeat number: 1 omeprazole 40 mg oral enteric coated capsule TAKE 1 CAPSULE BY MOUTH DAILY Start Date: 05/04/24 Status: Ordered Repeat number: 1 sertraline 50 mg oral tablet TAKE 1/2 TABLET BY MOUTH EVERY NIGHT AT BEDTIME FOR 1 WEEK AND THEN INCREASE TO 1 TABLET EVERY NIGHT AT BEDTIME Start Date: 05/04/24 Status: Ordered Repeat number: 1 tamsulosin 0.4 mg oral capsule TAKE 1 CAPSULE BY MOUTH EVERY DAY 30 MINUTES AFTER THE SAME MEAL Start Date: 05/04/24 Status: Ordered Repeat number: 1 Trelegy Ellipta 100 mcg-62.5 mcg-25 mcg/inh inhalation powder INHALE 1 PUFF INTO THE LUNGS DAILY Start Date: 05/04/24 Status: Ordered Repeat number: 1 Zoloft 50 mg oral tablet 1 tablet = 50 mg, By Mouth, Daily, # 30 tablet, 0 Refills, Maintenance, 05/04/24 9:06:00 AM EDT, Tablet, Partial fill upon patient request if the prescription is for a schedule II opioid drug. 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 Anxiety Confirmed Active Aortic aneurysm Confirmed Active Ataxia Confirmed Active Chronic Bronchitis Confirmed Active CAD (coronary artery disease) Confirmed Active Depression Confirmed Active Esophageal dysmotility Confirmed Active Former cigarette smoker, 1 ppdX29 years, quit 09/01/1985 Confirmed Active Alcohol use, 1-2 glasses of wine Confirmed Active GERD (gastroesophageal reflux disease) Confirmed Active Gout Confirmed Active Cataract extraction status Confirmed Active Hyperlipemia Confirmed Active Hypertension Confirmed Active Pulmonary nodule, left lower lobe Confirmed Active ANTONY on CPAP Confirmed Active DJD (degenerative joint disease) Confirmed Active Results Radiology Reports * Exam Date Time Procedure Performing Provider Status 11/09/24 5:[address] Angio Abdomen Eric , Georgia L; Auth (Verified) Notes: (CT Angio Abdomen) Reason For Exam: Renal artery dissection suspected;Other: RESULT: CT Angio Abdomen EXAMINATION: CT Angio Chest, CT Angio Abdomen INDICATION: Hx of Present Illness: mid abd pain x2 weeks. Denies N V D fevers. Reports normal po intake and BMs. Denies pain on arrival to triage; Reason: Other:; Aortic disease, nontraumatic; Clinical Question(s): Other:; Aortic Dissection TECHNIQUE: An initial noncontrast CT of the chest was performed. Spiral CTA of the chest, abdomen, was performed after rapid IV contrast administration without cardiac gating triggered by an BERENICE on the aorta. Images are formatted in multiple planes using 2-D multiplanar and 3-D maximum intensity projection. Gated axial images through the aortic root were also acquired during a separate 2nd injection of IV contrast with separate reconstructions of this data set formatted in multiple planes using2-D multiplanar and 3-D maximum intensity projection. 100 cc of Isovue 300 was administered intravenously. Weight-based protocol using automatic tube modulation was used to optimize exposure parameter s. COMPARISONS: Multiple priors including 04/20/2024, 03/10/2024. 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 The repair is intact . Left-sided 3 vessel aortic arch. The great arch vessels are patent with no significant stenosis. Status post endovascular stenting of the descending thoracic aorta, beginning just distal to the origin of the left subclavian artery and ending near the diaphragmatic hiatus. The endovascular stent is patent with no significant stenosis. A small amount of contrast is again seen refluxing posteriorto the distal aspect of the stent, consistent with a small type IB endoleak (image 91, series 7), which is unchanged . The upper [place] aortic wall is essentially collapsed around the endovascular stent. No evidence of dissection. Pulmonary arteries are normal in caliber. No evidence of central pulmonary embolism on this study performed without dedicated technique. Abdominal aorta: Diffuse calcification. No aneurysm, dissection or significant stenosis. Celiac axis: Patent. No significant stenosis. Superior mesenteric artery: Patent. No significant stenosis. Right renal artery: Single patent artery. No significant stenosis. Left renal artery: Single patent artery. No significant stenosis. Inferior mesenteric artery: Patent. No significant stenosis. Right common iliac artery: Patent with moderate calcification. No significant stenosis. Left common iliac artery: Patent with mild calcification. No significant stenosis. NON-ANGIOGRAPHIC FINDINGS: Binder Stripper Machine View Findings, Lines and Tubes: None. Trachea and Airways: Secretions in the posterior trachea. Lungs and Pleura: No focal consolidation or pulmonary edema. Atelectasis in the lower lobes, especially the medial aspect of the left lower lobe, unchanged. No effusion or pneumothorax. Mediastinum and rajan: No mass or hematoma. No mediastinal or hilar lymphadenopathy. No esophageal abnormality. Normal thyroid. Heart: Heart is normal in size. No pericardial effusion. Moderate coronary artery calcification. Chest Wall Soft Tissues: No acute abnormality. Diaphragm and upper abdomen: No acute abnormality. Liver: Normal. Gallbladder: No CT evidence of gallbladder pathology. Bile ducts: No biliary ductal dilation. Spleen: Normal. Pancreas: Normal. Adrenal glands: Normal. Kidneys and ureters: No hydronephrosis. Punctate nephrolithiasis or upper pole of right kidney. Masslike heterogeneous enhancement encompassing the anterior midpole of the right kidney, image 114 series 7 with loss of cortical medullary differentiation represents a change from 04/20/2024. Unchanged 1 cm focus along the lateral mid pole of the right kidney image 120 series 7 possibly a small cyst with surrounding perinephric stranding/scarring not significantly changed from prior study. The left kidney is unremarkable. Gastrointestinal: No evidence of bowel obstruction. Moderate diverticulosis of the distal large bowel without evidence of acute diverticulitis. Peritoneum and retroperitoneum: No ascites or pneumoperitoneum. No omental or mesenteric lesions. Lymph nodes: No enlarged lymph nodes. Abdominal wall: Unremarkable. Bones: No acute abnormality. Diffuse degenerative changes. Intact median sternotomy. IMPRESSION: 1. No aortic dissection or acute aortic pathology. 2. Status post repair of the ascending aorta. The repair is intact and without acute complication. 3. Status post endovascular repair of the descending thoracic aorta. Stable small type IB endoleak. 4. Heterogeneous masslike enhancement encompassing the anterior mid pole of the right kidney representing a change from prior study. Unclear if this represents pyelonephritis or chronic changes resulting from a previously reported subcapsular hematoma. Additional imaging could be considered with ultrasound or multiphase pre and postcontrast CT/MRI using renal mass protocol. WSN: [id number] Ordering Physician: Ferny Fields Dictated By: Jaya MENDOZA, Rajinder Cifuentes Dictated Date/Time: 11/09/24 6:23 pm Reviewed By: Rajinder Lake MD Signed By: Rajinder Lake MD Signed Date/Time: 11/09/24 6:23 pm Transcribed By: CHANTAL Transcribed Date/Time: 11/09/24 6:04 pm * Exam Date Time Procedure Performing Provider Status 11/09/24 5:[address] Angio Chest Eric Georgia; Au th (Verified) Notes: (CT Angio Chest) Reason For Exam: Aortic disease, nontraumatic;Other: RESULT: CT Angio Chest EXAMINATION: CT Angio Chest, CT Angio Abdomen INDICATION: Hx of Present Illness: mid abd pain x2 weeks. Denies N V D fevers. Reports normal po intake and BMs. Denies pain on arrival to triage; Reason: Other:; Aortic disease, nontraumatic; Clinical Question(s): Other:; Aortic Dissection TECHNIQUE: An initial noncontrast CT of the chest was performed. Spiral CTA of the chest, abdomen, was performed after rapid IV contrast administration without cardiac gating triggered by an BERENICE on the aorta. Images are formatted in multiple planes using 2-D multiplanar and 3-D maximum intensity projection. Gated axial images through the aortic root were also acquired during a separate 2nd injection of IV contrast with separate reconstructions of this data set formatted in multiple planes using2-D multiplanar and 3-D maximum intensity projection. 100 cc of Isovue 300 was administered intravenously. Weight-based protocol using automatic tube modulation was used to optimize exposure parameter s. COMPARISONS: Multiple priors including 04/20/2024, 03/10/2024. 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 The repair is intact . Left-sided 3 vessel aortic arch. The great arch vessels are patent with no significant stenosis. Status post endovascular stenting of the descending thoracic aorta, beginning just distal to the origin of the left subclavian artery and ending near the diaphragmatic hiatus. The endovascular stent is patent with no significant stenosis. A small amount of contrast is again seen refluxing posteriorto the distal aspect of the stent, consistent with a small type IB endoleak (image 91, series 7), which is unchanged . The upper [place] aortic wall is essentially collapsed around the endovascular stent. No evidence of dissection. Pulmonary arteries are normal in caliber. No evidence of central pulmonary embolism on this study performed without dedicated technique. Abdominal aorta: Diffuse calcification. No aneurysm, dissection or significant stenosis. Celiac axis: Patent. No significant stenosis. Superior mesenteric artery: Patent. No significant stenosis. Right renal artery: Single patent artery. No significant stenosis. Left renal artery: Single patent artery. No significant stenosis. Inferior mesenteric artery: Patent. No significant stenosis. Right common iliac artery: Patent with moderate calcification. No significant stenosis. Left common iliac artery: Patent with mild calcification. No significant stenosis. NON-ANGIOGRAPHIC FINDINGS: Binder Stripper Machine View Findings, Lines and Tubes: None. Trachea and Airways: Secretions in the posterior trachea. Lungs and Pleura: No focal consolidation or pulmonary edema. Atelectasis in the lower lobes, especially the medial aspect of the left lower lobe, unchanged. No effusion or pneumothorax. Mediastinum and rajan: No mass or hematoma. No mediastinal or hilar lymphadenopathy. No esophageal abnormality. Normal thyroid. Heart: Heart is normal in size. No pericardial effusion. Moderate coronary artery calcification. Chest Wall Soft Tissues: No acute abnormality. Diaphragm and upper abdomen: No acute abnormality. Liver: Normal. Gallbladder: No CT evidence of gallbladder pathology. Bile ducts: No biliary ductal dilation. Spleen: Normal. Pancreas: Normal. Adrenal glands: Normal. Kidneys and ureters: No hydronephrosis. Punctate nephrolithiasis or upper pole of right kidney. Masslike heterogeneous enhancement encompassing the anterior midpole of the right kidney, image 114 series 7 with loss of cortical medullary differentiation represents a change from 04/20/2024. Unchanged 1 cm focus along the lateral mid pole of the right kidney image 120 series 7 possibly a small cyst with surrounding perinephric stranding/scarring not significantly changed from prior study. The left kidney is unremarkable. Gastrointestinal: No evidence of bowel obstruction. Moderate diverticulosis of the distal large bowel without evidence of acute diverticulitis. Peritoneum and retroperitoneum: No ascites or pneumoperitoneum. No omental or mesenteric lesions. Lymph nodes: No enlarged lymph nodes. Abdominal wall: Unremarkable. Bones: No acute abnormality. Diffuse degenerative changes. Intact median sternotomy. IMPRESSION: 1. No aortic dissection or acute aortic pathology. 2. Status post repair of the ascending aorta. The repair is intact and without acute complication. 3. Status post endovascular repair of the descending thoracic aorta. Stable small type IB endoleak. 4. Heterogeneous masslike enhancement encompassing the anterior mid pole of the right kidney representing a change from prior study. Unclear if this represents pyelonephritis or chronic changes resulting from a previously reported subcapsular hematoma. Additional imaging could be considered with ultrasound or multiphase pre and postcontrast CT/MRI using renal mass protocol. WSN: [id number] Ordering Physician: Ferny Fields Dictated By: Rajinder Lake MD Dictated Date/Time: 11/09/24 6:23 pm Reviewed By: Rajinder Lake MD Signed By: Rajinder Lake MD Signed Date/Time: 11/09/24 6:23 pm Transcribed By: CHANTAL Transcribed Date/Time: 11/09/24 6:04 pm Vital Signs Most recent to oldest [Reference Range]: 1 2 3 Height 172 cm (11/09/24 12:36 PM) Weight 80.3 kg (11/09/24 12:36 PM) Oxygen Saturation [94-100 %] 96 % (11/09/24 7:28 PM) 97 % (11/09/24 4:12 PM) 95 % (11/09/24 12:36 PM) Pulse Rate [55-90 bpm] 63 bpm (11/09/24 7:28 PM) 56 bpm (11/09/24 4:12 PM) 75 bpm (11/09/24 12:36 PM) Blood Pressure [90-138/55-84 mm Hg] 162/69mm Hg *H* (11/09/24 7:28 PM) 168/73mm Hg *H* (11/09/24 4:12 PM) 143/61mm Hg *H* (11/09/24 12:36 PM) Respiratory Rate [16-30 br/min] 20 br/min (11/09/24 7:28 PM) 18 br/min (11/09/24 4:12 PM) 16 br/min (11/09/24 12:36 PM) Temperature [96.8-100.4 DegF] 98.0 DegF (11/09/24 7:28 PM) 97.9 DegF (11/09/24 12:36 PM) Mode of Delivery (Oxygen) Room air (11/09/24 7:28 PM) Room air (11/09/24 4:12 PM) Room air (11/09/24 12:36 PM) Blood pressure sites Arm, left (11/09/24 7:28 PM) Arm, left (11/09/24 4:12 PM) Arm, left (11/09/24 12:36 PM) Temperature Route Oral (11/09/24 7:28 PM) Oral (11/09/24 12:36 PM) Dry Weight 80.3 kg (11/09/24 12:36 PM) Weight Obtained Via Standing scale (11/09/24 12:36 PM) Social History Social History Type Response Smoking Status Former smoker, quit more than 30 days ago entered on: 02/17/21 Sex Sex Representation Male (finding) Note * Ferny Fields MD: PERFORM, SIGN, VERIFY Event Display: Patient Education Handout Authored Date: [id number] * Ferny Fields MD: PERFORM Event Display: Patient Education Leaflets Authored Date: [id number] Gastritis or Ulcer, No Antibiotic Treatment ?? [id number] Gastritis or Ulcer, No Antibiotic Treatment Gastritis??is irritation and inflammation of the stomach lining. This means the lining is red and swollen. It can cause shallow sores in the stomach lining called erosions. An??ulcer??is a deeper sore in the lining of the stomach. It may also occur in the first part of the small intestine (duodenum).?? The causes and symptoms of gastritis and ulcers are very similar. Causes and risk factors for both problems can include: ??? Long-term use of nonsteroidal anti-inflammatory drugs (NSAIDs), such as aspirin and ibuprofen ??? H. pylori??bacteria infection ??? Tobacco use ??? Alcohol use ??? Certain other conditions, such as immune disorders, certain medicines such as high-dose iron supplements, and street drugs, such ascocaine Symptoms for both problems can include: ??? Dull or burning pain in the upper part of the belly ??? Loss of appetite ??? Heartburn or upsetstomach ??? Frequent burping ??? Bloated feeling ??? Nausea with or without vomiting You likely had an assessment to help find the exact cause and extent of your problem. This may haveincluded a health history, exam, and certain tests. Results showed that your problem is not from ??H. pylori??infection you may not need antibiotics aspart of your treatment. Whether your problem is gastritis or an ulcer, you will still need to take other medicines. You will also need to follow instructions to help reduce stomach irritation so your stomach can heal.??Yourhealthcare provider may advise you to quit smoking and to stop drinking alcohol If certain medicineshealthcare provider Home care ??? Take any medicines you???re prescribed exactly as directed. Common medicines used to treat gastritis include: o Antacids.??These help neutralize the normal acids in your stomach. o o H2??blockers. These reduce the amount of acid your stomach makes. o Proton pump inhibitors.??These decrease your stomach acid more effectively than H2 blockers. o Bismuth subsalicylate.??This helps protect the lining of your stomach from acid. ??? Don't take any NSAIDs during your treatment. If you take NSAID to help treat other health problems, tell your healthcare provider. They may need to adjustyour medicine plan or change the dosage. ??? Don???t use tobacco and don???t drink alcohol. These products can increase the amount of acid your stomach makes. This can delay healing. It can also makesymptoms worse. ??? Consume plenty of fruits and vegetables and other sources of dietary fiber. ?? Follow-up care Follow up with your healthcare provider, or as advised. In some cases, you may need more tests. ?? When to get medical advice Call your healthcare provider right away if any of these occur: ??? Fever of 100.4??F (38??C) or higher, or as directed by your healthcare??provider ??? Stomach pain that gets worse or moves to the lower right part of belly or towards the back ??? Extreme tiredness (fatigue) ??? Weakness or dizziness ??? Continued weight loss ??? Frequent vomiting,??blood in your vomit, or coffee ground like substance in your vomit ??? Black, tarry, or bloody stools ??? Symptoms get worse or you have new symptoms ?? Call 911 Call 911??if any of these occur: ??? Chest pain appears or gets worse, or spreads to the back, neck, shoulder, or arm ??? Unusually fast heart rate ??? Trouble breathing or swallowing ??? Confusion ??? Extreme drowsiness or trouble waking up ??? Fainting ??? Large amounts of blood present in vomit or stool ?? Last Reviewed Date: 2024 ?? [id number] [employer]. All rights reserved. This information is not intended as a substitute for professional medical care. Always follow your healthcare professional's instructions. ?? Patient Care team information Care Team Personnel Name: Teresa Garland RN Position: [facility] RN Supv Member Role: Primary Care Nurse Name: Erin Pastrana RN Position: S RN Member Role: Primary Care Nurse Name: Ellie Trejo RN Position: S RN Member Role: Primary Care Nurse Name: Yulia Orellana RN Position: [facility] HBO Wound Member Role: Primary Care Nurse Name: Yanet Swartz RN Position: S RN Member Role: Primary Care Nurse Name: Rafael Angeles III, MD Position: Reference Physician Member Role: PCP Address: [address] [place] [id number] [employer]: Name: Franklin Drummond MD Position: [facility] Renal MD Member Role: [employer] Consulting Physician Address: [address] [place] [address] [address] [facility] [address]- [place] [employer]: Name: Alejandra Chaudhry RN Position: S RN Member Role: Primary Care Nurse Name: Aleksander Martinez RN Position: [facility] RN Member Role: Primary Care Nurse Name: Rory Perkins RN Position: [facility] RN Member Role: Primary Care Nurse Name: Dominga Covington RN Position: [facility] RN Member Role: Primary Care Nurse Name: Barb Fu RN Position: [facility] RN Member Role: Primary Care Nurse Name: Jack Benavides MD Position: S Outreach Member Role: [employer] Consulting Physician Address: [address] [facility] [place] [address]- [employer]: Name: Seth Paulson MD Position: [facility] Renal MD Member Role: [employer] Consulting Physician Address: [address] [facility] [place] [address]- [place] [employer]: Name: Alana Eckert RN Position: S RN Member Role: Primary Care Nurse Name: Geno Aguiar RN Position: S RN Member Role: Primary Care Nurse Name: Eve Hooks RN Position: S RN Member Role: Primary Care Nurse Care Team Related Persons Name: SUDHEERFABIANBillQUIRINO Name: GREG DYE Name: ITA ADAMS Insurance Providers Guarantor name: JULIAMATILDE WILLARDSANCHO Health Plan Information #: 1 [facility] Member Number: [id number] Policy Number: NA Group Number: NA Health Plan Information #: 2 Payer: [facility] Member Number: [id number] Policy Number: NA Group Number: NA
--- OUTSIDE RECORDS SUMMARY | 2024-11-18 14:58 | XMS_ITS | Encounter Summary ---
Author Organization [facility] Address [address] [place] [address] Care Team Providers Care Rn Imcu Name Role Phone Rafael Angeles MD Primary Care Provider Rafael Angeles MD Primary Care Provider Olga Villareal MD Unavailable [phone] Rafy Dawkins Unavailable Alana Quiñonez NP Unavailable [phone] Encounter Details Date Type Department Care Team Description 06/14/2017 Pt. Non Urgent Medic al Question Adult Medicine [address] [id number] Orestes Silverman PA-C Social History Tobacco Use Types Packs/Day [...] as of this encounter Progress Notes * Ginny Burr C.M.A. - 06/16/2017 9:11 AM EDTFrom: Garo Davis To: Orestes Silverman PA-C Sent: 06/14/2017 11:04 AM EDT Subject: Mikaela Silverman, This is aGro Davis please set up an appointment for me to receive Mon. or Tue. For a hip Cortisone shot. Or Call me at [phone] Thank You Garo documented in this encounter Plan of Treatment Not on file documented as of this encounter Visit Diagnoses Not on filedocumented in this encounter Care Teams Rn Imcu Relationship Specialty Start Date End Date Rafael Angeles MD [address] [place] [address] PCP - General Internal Medicine 03/16/20 Rafael Angeles MD [address] [place] [address] [phone] PCP - General 04/01/16 03/15/20 Olga Villareal MD [address] [place] [address] 84872 Specialist Cardiology 07/18/21 Rafy Dawkins PA [address] [place] [address] 61183 Specialist Cardiology 07/18/21 05/13/24 Alana Quiñonez NP [address] [place] [address] [facility] [place] [address] Cardiology 10/21/23 documented as of this encounter
--- OUTSIDE RECORDS SUMMARY | 2024-11-18 14:58 | XMS_ITS | Encounter Summary ---
Author Organization [facility] Address [address] [place] [address] Care Team Providers Care Short Filler Bunch Machine Operator Name Role Phone Rafael Angeles MD Primary Care Provider Rafael Angeles MD Primary Care Provider Olga Villareal MD Unavailable [phone] Rafy Dawkins Unavailable Alana Quiñonez NP Unavailable [phone] Reason for Visit * Reason Comments E-prescribe Rx Request Encounter Details Date Type Department Care Team Description 03/30/2019 Refill Adult Medicine [address] [id number] Zack Mora MD E-prescribe Rx Request Social History Tobacco Use Types Packs/Day Years Used Date Smoking Tobacco: Former Cigarettes 1 29 0 1957 - 09/01/1985 Smokeless Tobacco: Never Alcohol Use Standard Drinks/Week Comments No 0 (1 standard drink = 0.6 oz pur e alcohol) none for the past 15 days Sex Assigned at Date Recorded Male 04/05/2020 7:18 AM E DT Job Start Date Occupation Industry Not on file Not on file Not on file documented as of this encounter Miscellaneous Notes * Telephone Encounter - Pat Son - 03/30/2019 3:25 PM EDT Last ov 03/20/2019 Patient is contracted and is due for medication The patients' Mass[facility] report was reviewed by Zack Mora MD Today. Lab Results Component Value Date URAMPHETAMIN NEGATIVE 09/17/2018 URBARBITUATE NEGATIVE 09/17/2018 URBENZO POSITIVE 09/17/2018 URCOCAINE NEGATIVE 09/17/2018 UROPIATES NEGATIVE 09/17/2018 URMARIJUANA NEGATIVE 09/17/2018 * Telephone Encounter - Keerthi Chow - 03/30/2019 12:44 PM EDT Patient would like script to be: E-PRESCRIBED/FAXED TO PHARMACY ?? WHEN WAS THE PATIENT'S LAST APPOINTMENT IN ADULT MEDICINE? 03/21/19 ?? WHEN WAS THE LAST TIME THE PATIENT SAW THEIR PCP? 02/05/19 ?? Does patient have an upcoming appointment? No-patient refused appointment, will call back to book appointment ?? (THE MEDICATION REQUESTED IS ON THE MED LIST ABOVE) All of the medications requested were on the CURRENT MEDS list ?? Did you check the Pharmacy information above?: YES ?? Patient wants: 90 -day supply ?? Is this a mail order prescription request ? NO ?? If the refill is from a FAXED refill request what is the RX # listed on the fax? N/A ?? Patients current insurance carrier is: Payor: JOLIE SENIOR / Plan: JOLIE SENIOR $25/$40 REJI / Product Type: OTHER ?? documented in this encounter Plan of Treatment Not on file documented as of this encounter Visit Diagnoses Diagnosis Insomnia, unspecified type documented in this encounter Care Teams Short Filler Bunch Machine Operator Relationship Specialty Start Date End Date Rafael Angeles MD [address] [place] [address] 92406 PCP - General Internal Medicine 03/16/20 Rafael Angeles MD [address] [place] [address] 21566 PCP - General 04/01/16 03/15/20 Olga Villareal MD [address] [place] [address] [phone] Specialist Cardiology 07/18/21 Rafy Dawkins PA [address] [place] [address] 15291 Specialist Cardiology 07/18/21 05/13/24 Alana Quiñonez NP [address] [place] [address] Dr [facility] [place] [address] Cardiology 10/21/23 documented as of this encounter
--- OUTSIDE RECORDS SUMMARY | 2024-11-18 14:58 | XMS_ITS | Encounter Summary ---
Author Organization [facility] Address [address] [place] [address] Care Team Providers Care Fuse Cutter Name Role Phone Rafael Angeles MD Primary Care Provider [phone] Olga Villareal MD Unavailable [phone] Rafy Dawkins Unavailable Alana Quiñonez NP Unavailable [phone] Encounter Details Date Type Department Care Team Description 11/30/2023 Cigarette Stamper Report Medical Records [address] [place] [address] Lyle Pitt MD Social History Tobacco Use [...] on filedocumented in this encounter Care Teams Fuse Cutter Relationship Specialty Start Date End Date Rafael Angeles MD [address] [place] [address]20 PCP - General Internal Medicine 03/16/20 Olga Villareal MD [address] [place] [address] 01020 Specialist Cardiology 07/18/21 Rafy Dawkins PA [address] [place] [address] Specialist Cardiology 07/18/21 05/13/24 Alana Quiñonez NP [address] [place] [address] [facility] [place] [address] Cardiology 10/21/23 documented as of this encounter
--- OUTSIDE RECORDS SUMMARY | 2024-11-18 14:58 | XMS_ITS | Encounter Summary ---
Author Organization [facility] Address [address] [place] [address] Care Team Providers Care Flanging Machine Operator Name Role Phone Rafael Angeles MD Primary Care Provider [phone] Rafael Angeles MD Primary Care Provider [phone] Olga Villareal MD Unavailable [phone] Rafy Dawkins Unavailable Alana Quiñonez NP Unavailable [phone] Encounter Details Date Type Department Care Team Description 05/09/2016 Quarter Section Ironer Report Medical Records [address] [place] [address] Сергей Gee MD Social History Tobacco Use Types Packs/Day [...] on filedocumented in this encounter Care Teams Flanging Machine Operator Relationship Specialty Start Date End Date Rafael Angeles MD [address] [place] [address]20 PCP - General Internal Medicine 03/16/20 Rafael Angeles MD [address] [place] [address] 41089 PCP - General 04/01/16 03/15/20 Olga Villareal MD [address] [place] [address] [phone] Specialist Cardiology 07/18/21 Rafy Dawkins PA [address] [place] [address] [phone] Specialist Cardiology 07/18/21 05/13/24 Alana Quiñonez, JOVANNA [address] [place] [address] [facility] [place] [address] Cardiology 10/21/23 documented as of this encounter
--- OUTSIDE RECORDS SUMMARY | 2024-11-18 14:58 | XMS_ITS | Encounter Summary ---
Author Organization [facility] Address [address] [place] [address] Care Team Providers Care Visual Supervisor Name Role Phone Zack Mora MD Primary Care Provider Unavail able Rafael Angeles MD Primary Care Provider [phone] Rafael Angeles MD Primary Care Provider [phone] Olga Villareal MD Unavailable [phone] Rafy Dawkins Unavailable Alana Quiñonez NP Unavailable [phone] Reason for Visit * Reason Onset Date Comments pain, stomach 12/13/2014 Encounter Details Date Type Department Care Team Description 12/13/2014 Telephone Adult [address] [phone] Zack Mora MD pain, stomach Social History Tobacco Use Types Packs/Day Years Used Date Smoking Tobacco: Former Smokeless Tobacco: Never Comments:quit 25 yrs ago Alcohol Use Standard Drinks/Week Comments Not Asked 0 (1 standard drink = 0.6 oz pur e alcohol) Sex Assigned at Date Recorded Male 04/05/2020 7:18 AM E DT Job Start Date Occupation Industry Not on file Not on file Not on file documented as of this encounter Miscellaneous Notes * Telephone Encounter - Christina Watts R.N. - 12/13/2014 1:03 PM EDT [facility] - Telephone Triage Documentation CHIEF COMPLAINT:indigestion Call placed to patient He states lately he has been having increased indigestion He does take omeprazole 40 mg po bid but recently it started not helping he took some Mylanta , it did last for a couple of hours he has been taking Tums, no relief Denies any chest pain or pressure he does c/o slight sob with lifting appt scheduled PCP: Zack Mora LMP/EDC: Current Outpatient Prescriptions Medication Sig Dispense Refill ??? lorazepam (ATIVAN) 1 MG tablet Take 1 Tab by mouth daily as needed for Anxiety. 28 Tab 0 ??? gabapentin (NEURONTIN) 100 MG capsule TAKE 3 CAPSULES BY MOUTH IN THE MORNING AND TAKE 3 CAPSULES BY MOUTH IN THE EVENING 180 Cap 4 ??? Zolpidem Tartrate 10 MG Tab Take 1 Tab by mouth daily. 28 Tab 0 ??? valsartan-hydrochlorothiazide (DIOVAN-HCT) 160-25 MG per tablet Take 1 tablet by mouth daily. 90 Tab 1 ??? simvastatin (ZOCOR) 40 MG tablet Take 1 Tab by mouth daily. 30 Tab 4 ??? allopurinol (ZYLOPRIM) 300 MG tablet Take 300 mg by mouth daily. 90 Tab 1 ??? celecoxib (CELEBREX) 200 MG capsule Take 1 Cap by mouth daily. 30 Cap 4 ??? clorazepate (TRANXENE) 7.5 MG tablet Take 1 Tab by mouth 2 times daily as needed for Anxiety. 56 Tab 0 ??? citalopram (CELEXA) 20 MG tablet Take 20 mg by mouth 2 times daily. ??? metoprolol (LOPRESSOR) 25 MG tablet Take 25 mg by mouth. 1/2 tab in the am 1/2 tab in the pm ??? omeprazole (PRILOSEC) 40 MG capsule Take 1 Cap by mouth 2 times daily. 180 Cap 1 No current facility-administered medications for this visit. Allergies: Review of patient's allergies indicates no known allergies. Patient Active Problem List Diagnosis Code ??? COPD (chronic obstructive pulmonary disease) 496 ??? Gout 274.9 ??? Hypertension 401.9 ??? GERD (gastroesophageal reflux disease) 530.81 ??? Hypercholesterolemia 272.0 ??? Anxiety 300.00 ??? CTS (carpal tunnel syndrome) 354.0 ??? DJD (degenerative joint disease) 715.90 ??? Seizure 780.39 ??? Erectile dysfunction 607.84 ??? Trigeminal neuralgia 350.1 ??? Insomnia 780.52 ??? Hyperlipidemia 272.4 DISPOSITION:Appointment given REFERENCE:[facility] Telephone Triage Protocols for Nurses by Romy Srinivasan CALLER UNDERSTANDS & AGREES WITH ADVICE:YES * Telephone Encounter - Stephani Agarwal - 12/13/2014 10:15 AM EDT Symptoms patient is presenting: stomach issues, discomfort. He tried Tums but they are not helping.Patient is not in the area and is not sure what to do. How long has patient had these symptoms?: for a while, weeks. PCP: Zack Mora Payor: JOLIE ELMORE / Plan: JOLIE ELMORE $25/$35 PHILO / Product Type: OTHER documented in this encounter Plan of Treatment Not on file documented as of this encounter Visit Diagnoses Not on filedocumented in this encounter Care Teams Visual Supervisor Relationship Specialty Start Date End Date Zack Mora MD PCP - General Internal Medicine 05/09/14 03/31/16 Rafael Angeles MD [address] [place] [address] PCP - General Internal Medicine 03/16/20 Rafael Angeles MD [address] [place] [address] 44965 PCP - General 04/01/16 03/15/20 Olga Villareal MD [address] [place] [address]2913 Specialist Cardiology 07/18/21 Rafy Dawkins PA [address] [place] [address] 68897 Specialist Cardiology 07/18/21 05/13/24 Alana Quiñonez, JOVANNA [address] [place] [address] [facility] [place] [address] Cardiology 10/21/23 documented as of this encounter
--- OUTSIDE RECORDS SUMMARY | 2024-11-18 14:58 | XMS_ITS | Clinical Summary ---
Author Organization [facility] Address [address] [place] [phone] Phone Care Team Providers Care Head Rose Grower Name Role Phone Rafael Angeles MD Primary Care Provider [phone] Allergies Active Allergy Reactions Criticality Noted Date Comments Peanut-Containing Drug Products Nausea And Vomiting 08/02/2015 Tallow 05/18/2015 Abdominal pain Medications zolpidem (AMBIEN) 5 MG tablet Take 5 mg by mouth at night if needed 06/02/2023 Active tamsulosin (FLOMAX) 0.4 MG 24 hr capsule TAKE 1 CAPSULE BY MOUTH EVERY DAY 30 MINUTES AFTER THE SAME MEAL 07/22/2023 Active omeprazole (PriLOSEC) [address] capsule Take 40 mg by mouth 1 (one) time each day 06/08/2023 Active losartan (COZAAR) 50 MG tablet Take 50 mg by mouth 1 (one) time each day 05/09/2023 Active latanoprost (XALATAN) 0.005 % ophthalmic solution INSTILL 1 DROP IN BOTH EYES AT BEDTIME 05/18/2023 Active isosorbide mononitrate (IMDUR) 120 MG 24 hr tablet Take 1 tablet by mouth 1 (one) time each day 04/02/2023 Active gabapentin (NEURONTIN) 300 MG capsule Take 1 capsule by mouth in the morning and 1 capsule in the evening. 04/02/2016 Active atorvastatin (LIPITOR) 40 MG tablet Take 40 mg by mouth 1 (one) time each day 05/14/2023 Active aspirin 81 MG chewable tablet Chew 1 tablet 1 (one) time each day 08/02/2019 Active clorazepate (TRANXENE) 7.5 MG tablet Take 7.5 mg by mouth in the morning and 7.5 mg in the evening. 05/22/2023 Active nitroglycerin (NITROSTAT) 0.[address] 0.4 mg under the tongue 10/10/2023 Active labetalol (NORMODYNE) 100 MG tablet Take 100 mg by mouth in the morning and 100 mg in the evening. Active LORazepam (ATIVAN) 0.5 MG tablet Take 0.5 mg by mouth 04/05/2024 Active pantoprazole (PROTONIX) 40 MG EC tablet Take 40 mg by mouth 06/10/2024 Active sertraline (ZOLOFT) 50 MG tablet Take 1 tablet by mouth qhs 05/04/2024 Active citalopram (CeleXA) 40 MG tablet Take 40 mg by mouth 1 (one) time each day Active Active Problems Problem Noted Date Diagnosed Date Hypertension 08/04/2023 08/04/2023 Esophageal dysmotility 08/01/2023 Finding relating to alcohol drinking behavior 08/01/2023 Ex-cigarette smoker 08/01/2023 08/01/2023 Depressive disorder 08/01/2023 08/01/2023 Coronary arteriosclerosis 08/01/20232022 Cataract extraction status 08/01/202308/01 Bronchitis 08/01/2023 08/01/2023 Ataxia 08/01/2023 08/01/2023 Anxiety 08/01/2023 08/01/2023 Angina decubitus 08/01/2023 08/01/2023 Aneurysm of aorta 08/01/2023 08/01/2023 Gout 08/01/2023 08/01/2023 Hyperlipidemia 08/01/2023 08/01/2023 Benign essential hypertension 08/01/2023 Lung mass 08/01/2023 08/01/2023 Obstructive sleep apnea syndrome 08/01/2023 08/01/2023 Osteoarthritis 08/01/2023 08/01/2023 Abdominal aortic aneurysm 04/28/20232022 Overview (08/04/2023): Last Assessment & Plan: Followed by vascular surgery who is obtaining serial imaging Chest pain 07/18/2022 08/04/2023 COVID-19 07/15/2022 08/04/2023 Umbilical hernia 05/09/2022 08/04/2023 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 05/05/2020 08/04/2023 Spinal stenosis of lumbar region 03/20/2020 08/04/2023 Complete rotator cuff tear o r rupture of right shoulder, not specified as traumatic 09/23/2019 08/04/2023 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/2018 08/04/2023 Overview (08/04/2023): 1.7 x 1.3 x 1.3 cm aneurysm in the distal superficial femoral artery seen on CT Angiogram 02/13/18 at [facility] ER Seizure 05/27/2014 08/04/2023 Overview (08/04/2023): Age 46 Insomnia 05/27/2014 08/04/2023 Erectile dysfunction 05/27/2014 08/04/2023 Carpal tunnel syndrome 05/27/2014 3 Overview (08/04/2023): S/p CTR Trigeminal neuralgia 05/27/2014 08/04/2023 Immunizations Name Administration Dates Next Due Influenza Split High Dose Pr eservative Free IM 06/18/2022,05/24/2021,06/03/2020,05/11,08/22/2016,05/12/2015 Pfizer SARS-COV-2 05/29/2021,10/25/2020,10/04/19 21 Pneumococcal Conjugate 13-Valent 03/14/2017 Pneumococcal Polysaccharide 08/15/2015 Shingrix 08/19/2021,06/19/2021 Family History Medical History Relation Comments Heart disease Mother Relation Status Comments Mother Social History Tobacco Use Types Packs/Day Years Used Date Smoking Tobacco: Former Cigarettes Q uit: 09/01/1985 Comments:Smoking History Inf o:Every day Alcohol Use Standard Drinks/Week Comments Yes 0 (1 standard drink = 0.6 oz pure alcohol) Alcoholic Drinks/day: 1-2 drinks per day Sex and Gender Information Value Date Recorded Sex Assigned at Not on file Legal Sex Male 4:51 PM EST Gender Identity Not on file Sexual Orientation Not on file Last Filed Vital Signs Vital Sign Reading Time Taken Comments Blood Pressure 138/64 07/08/2024 1:11 PM EST Pulse 63 07/08/2024 1:11 PM EST Temperature - - Respiratory Rate - - Oxygen Saturation 97% 11/18/2023 4:36 PM EDT Inhaled Oxygen Concentration - - Weight 81.2 kg (179 lb) 07/08/2024 1:11 PM EST Height - - Body Mass Index - - Plan of Treatment Upcoming Encounters Date Type Department Care Team (Late st Contact Info) Description 01/21/2025 11:45 AM EDT Office Visit [facility] [address] [address] Andrea Ellison MD [address] [address] Health Maintenance Due Date Last Done Comments Influenza Vaccine (#1) 2024 2, 05/24/2021, 06/03/2020, Additional history exists Pneumococcal Vaccine: 65+ Years Completed 03/14/2017, 08/15/2015 Hepatitis B Vaccine Aged Out No longe r eligible based on patient's age to complete this topic Insurance [facility] MEDICARE [facility] MEDICARE Care Teams Head Rose Grower Relationship Specialty Start Date End Date Rafael Angeles MD [address] [place] [address] PCP - General Internal Medicine 01/01/24
--- OUTSIDE RECORDS SUMMARY | 2024-11-18 14:58 | XMS_ITS | Encounter Summary ---
Author Organization [facility] Address [address] [place] [address] Care Team Providers Care Renewal Specialist Name Role Phone Rafael Angeles MD Primary Care Provider [phone] Rafael Angeles MD Primary Care Provider [phone] Olga Villareal MD Unavailable [phone] Rafy Dawkins Unavailable Alana Quiñonez NP Unavailable [phone] Encounter Details Date Type Department Care Team Description 04/22/2019 [facility] Medical Records [address] [place] [id number] Abstract, Provider Social History Tobacco Use Types [...] on filedocumented in this encounter Care Teams Renewal Specialist Relationship Specialty Start Date End Date Rafael Angeles MD [address] [place] [address] 02869 PCP - General Internal Medicine 03/16/20 Rafael Angeles MD [address] [place] [address] 49308 PCP - General 04/01/16 03/15/20 Olga Villareal MD [address] [place] [address] [phone] Specialist Cardiology 07/18/21 Rafy Dawkins PA [address] [place] [address] [phone] Specialist Cardiology 07/18/21 05/13/24 Alana Quiñonez, JOVANNA [address] [place] [address] [facility] [place] [address] Cardiology 10/21/23 documented as of this encounter
--- OUTSIDE RECORDS SUMMARY | 2024-11-18 14:58 | XMS_ITS | Encounter Summary ---
Author Organization [facility] Address [address] [place] [address] Care Team Providers Care Senior Treasury Analyst Name Role Phone Rafael Angeles MD Primary Care Provider Rafael Angeles MD Primary Care Provider Olga Villareal MD Unavailable [phone] Rafy Dawkins Unavailable Alana Quiñonez NP Unavailable [phone] Reason for Visit * Reason Onset Date Comments medication problems 07/22/2016 Encounter Details Date Type Department Care Team Description 07/22/2016 Telephone Adult Medicine [address] [address] Zack Mora MD medication problems Social History Tobacco Use Types Packs/Day Years [...] encounter Miscellaneous Notes * Telephone Encounter - Ginny Turcios PA-C - 07/22/2016 3:26 PM EST New script has been sent. Thank you. Ginny Turcios PA-C * Telephone Encounter - Bia rEwin - 07/22/2016 2:55 PM EST Who is calling? A pharmacist: Pharmacy: Pharmacist Name: Pharmacy Phone # Name of the medication fluticasone (FLOVENT HFA) 110 MCG/ACT inhaler What is the specific problem or interaction? Needs to be written 2 puffs twice daily for 30 days woody covered by insurance If the patient is having a problem with taking the med - how long has the problem been going on? N/A documented in this encounter Plan of Treatment Not on file documented as of this encounter Visit Diagnoses Not on filedocumented in this encounter Care Teams Senior Treasury Analyst Relationship Specialty Start Date End Date Rafael Angeles MD [address] [place] [address] PCP - General Internal Medicine 03/16/20 Rafael Angeles MD [address] [place] [address] PCP - General 04/01/16 03/15/20 Olga Villareal MD [address] [place] [address] [phone] Specialist Cardiology 07/18/21 Rafy Dawkins PA [address] [place] [address] Specialist Cardiology 07/18/21 05/13/24 Alana Quiñonez NP [address] [place] [address] [facility] [place] [address] Cardiology 10/21/23 documented as of this encounter
--- OUTSIDE RECORDS SUMMARY | 2024-11-18 14:58 | XMS_ITS | Encounter Summary ---
Author Organization [facility] Address [address] [place] [address] Care Team Providers Care Durability Engineer Name Role Phone Rafael Angeles MD Primary Care Provider [phone] Rafael Angeles MD Primary Care Provider [phone] Olga Villareal MD Unavailable [phone] Rafy Dawkins Unavailable Alana Quiñonez NP Unavailable [phone] Encounter Details Date Type Department Care Team Description 06/16/2017 [facility] [address] [phone] Zack Mora MD Social History Tobacco Use [...] on filedocumented in this encounter Care Teams Durability Engineer Relationship Specialty Start Date End Date Rafael Angeles MD [address] [place] [address]20 PCP - General Internal Medicine 03/16/20 Rafael Angeles MD [address] [place] [address] 29726 PCP - General 04/01/16 03/15/20 Olga Villareal MD [address] [place] [address] [phone] Specialist Cardiology 07/18/21 Rafy Dawkins PA [address] [place] [address] [phone] Specialist Cardiology 07/18/21 05/13/24 Alana Quiñonez, JOVANNA [address] [place] [address] [facility] [place] [address] Cardiology 10/21/23 documented as of this encounter
--- OUTSIDE RECORDS SUMMARY | 2024-11-18 14:58 | XMS_ITS | Encounter Summary ---
Author Organization [facility] Address [address] [place] [address] Care Team Providers Care Outpatient Case Manager Name Role Phone Rafael Angeles MD Primary Care Provider [phone] Rafael Angeles MD Primary Care Provider [phone] Olga Villareal MD Unavailable [phone] Rafy Dawkins Unavailable Alana Quiñonez NP Unavailable [phone] Encounter Details Date Type Department Care Team Description 11/01/2016 Head Insulation Board Saw Operator Report Medical Records [address] [place] [address] Сергей Gee MD Social History Tobacco Use [...] on filedocumented in this encounter Care Teams Outpatient Case Manager Relationship Specialty Start Date End Date Rafael Angeles MD [address] [place] [address] PCP - General Internal Medicine 03/16/20 Rafael Angeles MD [address] [place] [address] PCP - General 04/01/16 03/15/20 Olga Villareal MD [address] [place] [address] [phone] Specialist Cardiology 07/18/21 Rafy Dawkins PA [address] [place] [address] [phone] Specialist Cardiology 07/18/21 05/13/24 Alana Quiñonez, JOVANNA [address] [place] [address] [facility] [place] [place] [address] Cardiology 10/21/23 documented as of this encounter
--- OUTSIDE RECORDS SUMMARY | 2024-11-18 14:58 | XMS_ITS | Encounter Summary ---
Author Organization [facility] Address [address] [place] [address] Care Team Providers Care Excelsior Machine Operator Name Role Phone Rafael Angeles MD Primary Care Provider Rafael Angeles MD Primary Care Provider Olga Villareal MD Unavailable [phone] Rafy Dawkins Unavailable Alana Quiñonez NP Unavailable [phone] Encounter Details Date Type Department Care Team Description 03/12/2017 Fermenter Wine Report Medical Records [address] [place] [id number] Abstract, Provider Social History Tobacco Use Types [...] on filedocumented in this encounter Care Teams Excelsior Machine Operator Relationship Specialty Start Date End Date Rafael Angeles MD [address] [place] [phone] PCP - General Internal Medicine 03/16/20 Rafael Angeles MD [address] [place] [address] PCP - General 04/01/16 03/15/20 Olga Villareal MD [address] [place] [address] [phone] Specialist Cardiology 07/18/21 Rafy Dawkins PA [address] [place] [address] [phone] Specialist Cardiology 07/18/21 05/13/24 Alana Quiñonez NP [address] [place] [address] [facility] [place] [address] Cardiology 10/21/23 documented as of this encounter
--- OUTSIDE RECORDS SUMMARY | 2024-11-18 14:58 | XMS_ITS | Encounter Summary ---
Author Organization [facility] Address [address] [place] [address] Care Team Providers Care Investigation Manager Name Role Phone Rafael Angeles MD Primary Care Provider [phone] Rafael Angeles MD Primary Care Provider [phone] Olga Villareal MD Unavailable [phone] Rafy Dawkins Unavailable Alana Quiñonez NP Unavailable [phone] Encounter Details Date Type Department Care Team Description 04/29/2019 Bareback Rider Report Medical Records [address] [place] [phone] Duran Zurita MD Social History Tobacco Use Types Packs/Day [...] on filedocumented in this encounter Care Teams Investigation Manager Relationship Specialty Start Date End Date Rafael Angeles MD [address] [place] [phone] PCP - General Internal Medicine 03/16/20 Rafael Angeles MD [address] [place] [phone] PCP - General 04/01/16 03/15/20 Olga Villareal MD [address] [place] [address] [phone] Specialist Cardiology 07/18/21 Rafy Dawkins PA [address] [place] [address] [phone] Specialist Cardiology 07/18/21 05/13/24 Alana Quiñonez, JOVANNA [address] [place] [address] [facility] [place] [address] Cardiology 10/21/23 documented as of this encounter
--- OUTSIDE RECORDS SUMMARY | 2024-11-18 14:58 | XMS_ITS | Encounter Summary ---
Author Organization [facility] Address [address] [place] [address] Care Team Providers Care President Commercial Bank Name Role Phone Rafael Angeles MD Primary Care Provider [phone] Rafael Angeles MD Primary Care Provider [phone] Olga Villareal MD Unavailable Rafy Dawkins Unavailable Alana Quiñonez NP Unavailable [phone] Encounter Details Date Type Department Care Team Description 12/22/2018 Orders Only Medical Records [address] [place] [address] Nomi Dias MD [address] [place] [address] [phone] Social History Tobacco Use Types Packs/Day Years [...] on file documented as of this encounter Procedures Procedure Name Priority Date/Time Associated Diagnosis Comments OUTSIDE PATHOLOGY Routine 12/18/2018 documented in this encounter Results * OUTSIDE PATHOLOGY (12/18/2018) H Darrius Dias MD OUTSIDE LAB documented in this encounter Visit Diagnoses Not on filedocumented in this encounter Care Teams President [employer] Relationship Specialty Start Date End Date Rafael Angeles MD [address] [place] [address] [phone] PCP - General Internal Medicine 03/16/20 Rafael Angeles MD [address] [place] [phone] PCP - General 04/01/16 03/15/20 Olga Villareal MD [address] [place] [phone] Specialist Cardiology 07/18/21 Rafy Dawkins PA [address] [place] [phone] Specialist Cardiology 07/18/21 05/13/24 Alana Quiñonez, JOVANNA [address] [place] [address] [facility] [place] [address] Cardiology 10/21/23 documented as of this encounter
--- OUTSIDE RECORDS SUMMARY | 2024-11-18 14:58 | XMS_ITS | Encounter Summary ---
Author Organization [facility] Address [address] [place] [address] Care Team Providers Care Psychology Professor Name Role Phone Rafael Angeles MD Primary Care Provider Olga Villareal MD Unavailable [phone] Rafy Dawkins Unavailable Alana Quiñonez NP Unavailable Reason for Visit * Reason Onset Date Comments TEST RESULTS 11/14/2023 Encounter Details Date Type Department Care Team Description 11/14/2023 Telephone Adult Medicine [facility] [address] [place] [address] [phone] Radha Rm PA-C [address] [place] [address] [phone] TEST RESULTS Social History Tobacco Use Types Packs/Day Years [...] encounter Miscellaneous Notes * Telephone Encounter - Reema Mcintosh - 11/14/2023 8:55 AM EDT Inform patient: ANY URGENT OR ABNORMAL RESULTS WIILL RESULT IN A CALL BACK TO THE PATIENT [place]. Type of test: :US Date test was performed: 11/11/23 Where was the test performed: [facility] Who ordered this test?: Hennalayton Jag Is the doctor here today?: YES Can the message wait until the doctor returns?: NO IF PATIENT'S PCP IS NOT IN INSTRUCT PATIENT THAT THEY WILL RECEIVE A CALL BACK WHEN THE PCP IS IN THE OFFICE NEXT. documented in this encounter Plan of Treatment Not on file documented as of this encounter Visit Diagnoses Not on filedocumented in this encounter Care Teams Psychology Professor Relationship Specialty Start Date End Date Rafael Angeles MD [address] [place] [phone] PCP - General Internal Medicine 03/16/20 Olga Villareal MD [address] [place] [phone] Specialist Cardiology 07/18/21 Rafy Dawkins PA [address] [place] [phone] Specialist Cardiology 07/18/21 05/13/24 Alana Quiñonez NP [address] [place] [address] [facility] [place] [address] Cardiology 10/21/23 documented as of this encounter
--- OUTSIDE RECORDS SUMMARY | 2024-11-18 14:58 | XMS_ITS | Clinical Summary ---
Author Organization [facility] Address [address] [place] [address] Phone Care Team Providers Care First Aid Attendant Name Role Phone Rafael Angeles MD Primary Care Provider [phone] Allergies Active Allergy Reactions Criticality Noted Date Comments Morphine 12/17/2023 Dry heaves Peanut Nausea And Vomiting 08/02/2015 Tallow 05/18/2015 Abdominal pain Medications oxycodone HCl (OXYCODONE ORAL) Take 5 mg by mouth. Active acetaminophen (TYLENOL) 325 mg tablet Take 2 tablets (650 mg total) by mouth. Active aspirin 81 mg EC tablet Take 1 tablet (81 mg total) by mouth. Active atorvastatin (LIPITOR) 40 mg tablet Take 1 tablet (40 mg total) by mouth 1 (one) time each day. 023 Active citalopram (CeleXA) 40 mg tablet Take 1 tablet (40 mg total) by mouth 1 (one) time each day. Active diclofenac (VOLTAREN) 1 % topical gel Apply 4 g topically. Active docusate sodium (COLACE) 100 mg capsule Take 1 capsule (100 mg total) by mouth. Active isosorbide mononitrate (IMDUR) 60 mg 24 hr tablet Take 2 tablets (120 mg total) by mouth. Active latanoprost (XALATAN) 0.005 % ophthalmic solution Administer 1 drop into both eyes. Active losartan (COZAAR) 50 mg tablet Active labetaloL (NORMODYNE) 100 mg tablet TAKE 1 TABLET BY MOUTH TWICE DAILY 180 tablet 1 Active amoxicillin (AMOXIL) 500 mg tablet TAKE 4 TABLET BY MOUTH 1 HOUR PRIOR TO DENTAL VISIT Active Lyla-Lanta 200-200-20 mg/5 mL suspension TAKE 15 ML BY MOUTH 4 TIMES DAILY NEEDED Active facial mask (PROCEDURAL FACE MASKS MISC) 1 Each by Does not apply route at bedtime. Please provide patient with oxygen humifification device to use with oxygen at night. Active Oxygen Therapy (O2) gas Inhale into the lungs. Pt uses oxygen at night 2.5 L Active diclofenac (VOLTAREN) 1 % topical gel Apply 4 g topically 4 times daily as needed (joint pain). Active gabapentin (NEURONTIN) 100 mg capsule Take 1-2 Capsules by mouth 2 times daily. Active tamsulosin (FLOMAX) 0.4 mg 24 hr capsule Take 2 capsules (0.8 mg total) by mouth 1 (one) time each day. Capsules should be taken 30 minutes following the same meal each day. 180 capsule 1 Active fluticasone-um eclidinium-faustino anterol (Trelegy Ellipta) 100-62.5-25 mcg inhaler INHALE 1 PUFF INTO THE LUNGS DAILY 60 each Active albuterol HFA (PROAIR HFA ; PROVENTIL HFA ; VENTOLIN HFA) 90 mcg/actuation inhaler INHALE 2 PUFFS INTO THE LUNGS EVERY 6 HOURS NEEDED FOR COUGH OR WHEEZING OR SHORTNESS OF BREATH 8.5 g Active nitroglycerin (NITROSTAT) 0.[address] 1 TABLET UNDER THE TONGUE EVERY 5 MINUTES NEEDED FOR CHEST PAIN 25 tablet Active zolpidem (AMBIEN) 5 mg tablet TAKE 1 TABLET(5 MG) BY MOUTH AT BEDTIME NEEDED FOR SLEEP. MAX DAILY AMOUNT: 5 MG 28 tablet Active clorazepate (TRANXENE) 7.5 mg tablet Take 1 tablet (7.5 mg total) by mouth 2 (two) times a day. 56 tablet Active pantoprazole (PROTONIX) 40 mg EC tablet Take 1 tablet (40 mg total) by mouth 2 (two) times a day. Do not crush, chew, or split. 180 each 1 Active famotidine (PEPCID) 20 mg tablet Take 1 tablet (20 mg total) by mouth 2 (two) times a day. 60 each 2 025 2024 Active sertraline (ZOLOFT) 50 mg tablet Take 1 tablet (50 mg total) by mouth 1 (one) time each day. 90 tablet 1 Active omeprazole (PriLOSEC) [address] capsule Take 1 capsule (40 mg total) by mouth 1 (one) time each day. 024 2024 Discontinued pantoprazole (PROTONIX) 20 mg EC tablet TK 1 T PO D 019 2024 Discontinued famotidine (PEPCID) 20 mg tablet Take 1 tablet (20 mg total) by mouth 2 (two) times a day. 024 2024 Discontinued(R eorder) sertraline (ZOLOFT) 50 mg tablet Take 1 tablet by mouth qhs 024 2024 Discontinued(R eorder) clorazepate (TRANXENE) 7.5 mg tablet Take 1 tablet (7.5 mg total) by mouth 2 (two) times a day. 56 tablet 024 2024 Discontinued(R eorder) zolpidem (AMBIEN) 5 mg tablet TAKE 1 TABLET(5 MG) BY MOUTH AT BEDTIME NEEDED FOR SLEEP. MAX DAILY AMOUNT: 5 MG 28 tablet 025 2024 Discontinued Active Problems Problem Noted Date Diagnosed Date Lung mass 07/20/2024 Angina decubitus 08/01/2023 Ataxia 08/01/2023 Benign essential hypertension 08/01/2023 Depressive disorder 08/01/2023 Lung mass 08/01/2023 AAA (abdominal aortic aneurysm) 04/28/2023 Overview (11/03/2023): Last Assessment & Plan: Followed by vascular surgery who is obtaining serial imaging Abdominal aortic aneurysm 04/28/2023 Overview (07/20/2024): Last Assessment & Plan: Followed by vascular surgery who is obtaining serial imaging Chest pain 07/18/2022 COVID-19 07/15/2022 Umbilical hernia without obstruction and without gangrene 05/09/2022 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 05/05/2020 Lumbar spinal stenosis 03/20/2020 Nontraumatic complete tear of right rotator cuff 09/23/2019 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 Imaging was read as probably normal exercise nuclear stress test, Gated images revealed normal LV motion with an EF of 72%. Chronic bronchitis 11/10/2015 ANTONY and COPD overlap syndrome 06/06/2015 Overview (11/03/2023): NOT TREATED (December 2019) Thoracic aortic aneurysm 02/06/2015 Overview (11/03/2023): -Ascending aortic aneurysm repair with graft, 11/13/2017, Dr. Pitt -Echocardiogram most recently in November 2020 showing normal biventricular size and systolic function normal left ventricular regional wall motion with an ejection fraction of 55 to 60%, no hemodynamically significant valve disease, dilated aortic root at 4 cm, ascending aorta at 3.6 cm, transverse aorta at 3 cm-status post aneurysm repair Last Assessment & Plan: Patient continues to follow with cardiothoracic surgery, I believe he gets CT imaging through them, we have been updating echocardiograms every 3 years or so Hyperlipidemia 06/23/2014 Overview (11/03/2023): Last Assessment & Plan: Continue atorvastatin 40 mg at bedtime, I do not feel strongly about baby aspirin Anxiety 05/27/2014 CTS (carpal tunnel syndrome) 05/27/2014 Overview (11/03/2023): S/p CTR DJD (degenerative joint disease) 05/27/2014 Erectile dysfunction 05/27/2014 GERD (gastroesophageal reflux disease) 4 Gout 05/27/2014 Hypertension 05/27/2014 Overview (11/03/2023): Last Assessment & Plan: Reasonably controlled on current regimen of losartan 50 mg daily, Imdur 120 mg daily Insomnia 05/27/2014 Seizure 05/27/2014 Overview (11/03/2023): Age 46 Trigeminal neuralgia 05/27/2014 Encounters Date Type Department Care Team Description 11/17/2024 Telephone Adult Medicine [address] [phone] Rafael Angeles MD cortisone shot 11/12/2024 Nurse Triage Adult Medicine [address] [phone] Shira Carney MA Medication Reaction 11/11/2024 11:00 AM EDT Office Visit Adult Medicine [address] [phone] Radha Rm PA Gastroesophageal reflux disease, unspecified whether esophagitis present (Primary Dx); Epigastric abdominal pain; Chest pain, unspecified type; Renal mass 11/10/2024 Telephone Adult [address] [phone] Rafael Angeles MD Hospitalization/ER 11/09/2024 Nurse Triage [address] [phone] Rafael Angeles MD GI Problem 09/29/2024 Nurse Triage [address] [phone] Rafael Angeles MD Chest Pain 09/22/2024 Nurse Triage [address] [phone] Rafael Angeles MD Hypertension 09/13/[address] [place] [address] Natalia Winston NP dme request 09/09/[address] [phone] Rafael Angeles MD 09/08/2024 11:30 AM EST Office Visit [address] [phone] Radha Rm PA Encounter for long-term (current) use of medications (Primary Dx); Hyperlipidemia, unspecified hyperlipidemia type; Hypertension, unspecified type; Insomnia, unspecified type; Anxiety; Coronary artery disease, unspecified vessel or lesion type, unspecified whether angina present, unspecified whether little traverse or transplanted heart; Benign prostatic hyperplasia without lower urinary tract symptoms from Last 3 Months Immunizations Name Administration Dates Next Due Influenza trivalent, 0.5mL ( Fluzone High-dose) 65yo and older 06/18/2022,05/24/2021,06/03/2020,05/11,08/22/2016,05/12/2015 Influenza trivalent, with pr eservative (Fluzone; Afluria) 6mo and older 08/22/2016 Pneumococcal conjugate 13 va lent (Prevnar 13, PCV13) 2mo and older 03/14/2017 Pneumococcal polysaccharide 23 valent (Pneumovax 23) 2yo and older 08/15/2015 Td Tetanus diptheria (Tdvax) 7yo and older 09/17/2018 Zoster recombinant (Shingrix ) 19yo and older 08/19/2021,06/19/2021 Surgical History Surgery Date Site/Laterality Comments TONSILLECTOMY 1945 PROCEDURE: HISTORICAL TONSILLECTOMY APPENDECTOMY 1955 PROCEDURE: [place] APPENDECTOMY CATARACT EXTRACTION PROCEDURE: HISTORICAL CATARACT REMOVAL CARPAL TUNNEL RELEASE 1995 PROCEDURE: HISTORICAL CARPAL TUNNEL REL OTHER SURGICAL HISTORY PROCEDURE: HISTORICAL UNSPECIFIED SURGERY; COMMENT: septoplasty ESOPHAGOGASTRODUODENOSCOPY 01/19/15 PROCEDURE: [place] ESOPHAGOGASTRODUODENOSCOPY TRANSORAL DIAGNOSTIC; COMMENT: Biopsies negative for Davis's. COLONOSCOPY 01/21/14 Laquita (Gerard) PROCEDURE: [place] COLONOSCOPY STOMA W/RMVL ROBYN POLYP/OTH LES SNARE; COMMENT: small rectal adenoma and tics; repeat in 5 yrs OTHER SURGICAL HISTORY 01/13/2018 PROCEDURE: [place] RPLCMT PROST AORTIC VALVE OPEN XCP HOMOGRF/STENT Medical History Medical History Date Comments COPD (chronic obstructive pu lmonary disease) ([facility]) 05/27/2014 DX:COPD (chronic obstructive pulmonary disease) ([facility]) Gout 05/27/2014 DX:Gout Hypertension 05/27/2014 DX:Hypertension GERD (gastroesophageal reflux disease) 4 DX:GERD (gastroesophageal reflux disease) Hypercholesterolemia 05/27/2014 DX:Hypercho lesterolemia Anxiety 05/27/2014 DX:Anxiety CTS (carpal tunnel syndrome) 05/27/2014 DX: CTS (carpal tunnel syndrome); COMMENT: S/p CTR DJD (degenerative joint disease) 05/27/2014 DX:DJD (degenerative joint disease) Seizure ([facility]) 05/27/2014 DX:Seizure ([facility]); COMMENT: Age 46 Erectile dysfunction 05/27/2014 DX:Erectile dysfunction Insomnia 05/27/2014 DX:Insomnia Lumbar spinal stenosis 03/20/2020 DX:Lumbar spinal stenosis Duodenitis DX:Duodenitis Family History Medical History Relation Name Comments Other: mva Brother 1 45 Other: agent orange Brother 2 Cirrhosis Father 53, alcoho lism Heart attack Father Coronary artery disease Maternal Grandfather Coronary artery disease Maternal Grandmother Heart attack Mother 45 Relation Name Status Comments Brother 1 Brother 2 Father Maternal Grandfather Maternal Grandmother Mother Social History Tobacco Use Types Packs/Day Years Used Date Smoking Tobacco: Former Cigarettes 1 28.5 0 1957 - 09/01/1985 Smokeless Tobacco: Never Tobacco Cessation:Counseling Given: Not Answered Alcohol Use Standard Drinks/Week Comments Yes 0 (1 standard drink = 0.6 oz pur e alcohol) Sex and Gender Information Value Date Recorded Sex Assigned at Not on file Legal Sex Male 10:46 AM EST Gender Identity Not on file Sexual Orientation Not on file Obstetrics History Last Filed Vital Signs Vital Sign Reading Time Taken Comments Blood Pressure 120/60 11/11/2024 10:53 AM EDT Pulse 78 11/11/2024 10:53 AM EDT Temperature 36.3 ??C (97.3 ??F) 11/11/2024 10:53 AM E DT Respiratory Rate - - Oxygen Saturation 92% 11/11/2024 10:53 AM EDT Inhaled Oxygen Concentration - - Weight 80.3 kg (177 lb 1.6 oz) 11/11/2024 10:53 AM EDT Height 172.7 cm (5' 7.99 ) 11/11/2024 10:53 AM E DT Body Mass Index 26.93 11/11/2024 10:53 AM EDT Plan of Treatment Upcoming Encounters Date Type Department Care Team (Late st Contact Info) Description 11/22/2024 8:50 AM EDT Office Visit [facility] 154 [address] [facility] 154 [place] [phone] Olga Villareal MD [address] [place] [address] 11/23/2024 1:40 PM EDT Consult Gastroenterology - [place] 175 [facility] [address] [facility] [address] [place] [phone] [place] Zamarripa NP 175 [facility] 200 [place] [address] 11/30/2024 11:30 AM EDT Office Visit Adult [address] [phone] Rafael Angeles MD [address] [place] [address] 12/07/2024 12:00 PM EDT Ancillary Procedure [facility] [address] [phone] 02/25/2025 11:00 AM EDT Office Visit Adult [address] [phone] Rafael Angeles MD [address] [place] [phone] 05/03/2025 2:00 PM EDT Office Visit Pulmonolgy - [place] [address] [phone] Natalia Winston, JOVANNA [address] [address] 05/23/2025 11:00 AM EDT Ancillary Procedure [facility] [place] [address] [phone] Health Maintenance Due Date Last Done Comments Depression Screening 08/08/2022 Falls Risk Assessment 08/08/2022 Medicare Annual Wellness Visit 08/08/2022 Social Influencers of Health Screening 08/08/2022 Colorectal Cancer Screening: Colonoscopy 12/19/2023 12/18/2018 Hypertension/CHF/CAD Annual BMP Blood Test 09/10/2025 09/10/2024, 04/09/2024, 04/09/2024 DTaP,Tdap,and Td Vaccines (2 - Td or Tdap) 09/17/2028 09/17/2018 Cholesterol Screening (Lipid Panel) 09/10/2029 09/10/2024, 04/09/2024, 04/09/2024 Pneumococcal Vaccine: 50+ Years Completed 03/14/2017, 08/15/2015 Zoster Vaccines Completed 08/19/2021, 06/19/2021 COVID-19 Vaccine Completed 08/11/2024, , 07/23/2022, Additional history exists Influenza Vaccine Completed 08/11/2024, , 06/18/2022, Additional history exists RSV Immunization Patients 60+ Years Old Completed 08/11/2024 HIB Vaccines Aged Out No longer eligi ble based on patient's age to complete this topic HPV Vaccines Aged Out No longer eligi ble based on patient's age to complete this topic Hepatitis A Vaccines Aged Out No long er eligible based on patient's age to complete this topic Hepatitis B Vaccines Aged Out No long er eligible based on patient's age to complete this topic IPV Vaccines Aged Out No longer eligi ble based on patient's age to complete this topic MMR Vaccines Aged Out No longer eligi ble based on patient's age to complete this topic Meningococcal ACWY Vaccine Aged Out N o longer eligible based on patient's age to complete this topic Meningococcal B Vacine Aged Out No lo nger eligible based on patient's age to complete this topic RSV Immunization Patients Under 20 months Aged Out No longer eligible based on patient's age to complete this topic Varicella Vaccines Aged Out No longer eligible based on patient's age to complete this topic Procedures Procedure Name Priority Date/Time Associated Diagnosis Comments LIPID PANEL WITH REFLEX TO DIRECT LDL Routine 09/10/2024 10:33 AM EST Hyperlipidemia, unspecified hyperlipidemia type BASIC METABOLIC PANEL Routine 09/10/2024 10:33 AM EST Hyperlipidemia, unspecified hyperlipidemia type DRUG ABUSE SCREEN 8A PANEL, URINE Routine 09/10/2024 10:17 AM EST Encounter for long-term (current) use of medications HM COLONOSCOPY Routine 12/18/2018 from Last 3 Months or Most Recently Relevant to Health Maintenance Results * Lipid panel with reflex to direct LDL (09/10/2024 10:33 AM EST) Cholesterol 152 0 - 200 mg/dL LAB CHEMISTRY METHOD 09/10/2024 3:12 PM EST [facility] Triglycerides 81 0 - 150 mg/dL LAB CHEMISTRY METHOD 09/10/2024 3:[address] [facility] HDL 70 >=40 mg/dL LAB CHEMISTRY METHOD 09/10/2024 3:[address] [facility] LDL Calculated 66 0 - 100 mg/dL LAB CHEMISTRY METHOD 09/10/2024 3:12 PM EST [facility] VLDL Cholesterol Ja 16.2 mg/dL LAB CHEMISTRY METHOD 09/10/2024 3:[address] [facility] Non HDL Chol. (LDL+VLDL) 82 <145 mg/dL LAB CHEMISTRY METHOD 09/10/2024 3:[address] [facility] Chol/HDL Ratio 2.2 0.0 - 4.4 LAB CHEMISTRY METHOD 09/10/2024 3:[address] [facility] Blood Venous blood specimen / Unknown Venipuncture / Unknown 09/10/2024 10:33 AM EST 09/10/2024 10:33 AM EST Radha ORDONEZ LAB BLOOD ORDERABLES Fi nal Result [facility] [address] [place] [address], * (ABNORMAL) Basic metabolic panel (09/10/2024 10:33 AM EST) [facility] Sodium 138 133 - 145 mmol/L LAB CHEMISTRY METHOD 09/10/2024 3:[address] [facility] Potassium 4.1 3.5 - 5.5 mmol/L LAB CHEMISTRY METHOD 09/10/2024 3:[address] [facility] Chloride 105 96 - 110 mmol/L LAB CHEMISTRY METHOD 09/10/2024 3:12 PM EST [facility] CO2 26 21 - 32 mmol/L LAB CHEMISTRY METHOD 09/10/2024 3:[address] [facility] Anion Gap 7 3 - 11 LAB CHEMISTRY METHOD 09/10/2024 3:[address] [facility] Glucose 101(H) 70 - 100 mg/dL LAB CHEMISTRY METHOD 09/10/2024 3:[address] [facility] BUN 27(H) 5 - 25 mg/dL LAB CHEMISTRY METHOD 09/10/2024 3:[address] [facility] Creatinine 1.16 0.70 - 1.30 mg/dL LAB CHEMISTRY METHOD 09/10/2024 3:[address] [facility] eGFR 62 >=60 mL/min/1. 73m2 LAB CHEMISTRY METHOD 09/10/2024 3:[address] [facility] Comment:Calculation based on the??Chronic Kidney Disease Epidemiology Collaboration (CKD-EPI) equation refit??without adjustment for race. BUN/Creatinine Ratio 23.3 LAB CHEMISTRY METHOD 09/10/2024 3:[address] [facility] Calcium 8.8 8.5 - 10.5 mg/dL LAB CHEMISTRY METHOD 09/10/2024 3:[address] [facility] Blood Venous blood specimen / Unknown Venipuncture / Unknown 09/10/2024 10:33 AM EST 09/10/2024 10:33 AM EST us Radha ORDONEZ LAB BLOOD ORDERABLES Fi nal Result [facility] [address] [place] [address], * (ABNORMAL) Drug abuse screen 8a panel, urine (09/10/2024 10:17 AM EST) Amphetamine Screen, Ur Negative Negative LAB CHEMISTRY METHOD 12:38 PM EST [facility] Comment:Certain OTC medicati ons containing ephedrine, phenylephrine, pseudoephedrine and phenylpropanolamine can cause false positive results. Barbiturate Screen, Ur Negative Negative LAB CHEMISTRY METHOD 5 12:[address] [facility] Benzodiazepine Screen, Ur Positive(A ) Negative LAB CHEMISTRY METHOD 5 12:[address] [facility] Cocaine Screen, Ur Negative Negative LAB CHEMISTRY METHOD 5 12:[address] [facility] Opiate Screen, Ur Negative Negative LAB CHEMISTRY METHOD 5 12:[address] [facility] Cannabinoid (THC) Screen, Ur Negative Negative LAB CHEMISTRY METHOD 5 12:[address] [facility] Comment:Specimens from patie nts taking pantoprazole sodium (Protonix) have been shown to produce false positive results. Oxycodone Screen, Ur Negative Negative LAB CHEMISTRY METHOD 5 12:[address] [facility] Fentanyl, Ur Negative Negative LAB CHEMISTRY METHOD 5 12:[address] [facility] Urine Urine specimen obtained by clean catch procedure / Unknown Non-blood Collection / Unknown 09/10/2024 10:17 AM EST 09/10/2024 10:17 AM EST [facility] - 09/10/2024 12:38 PM EST Assay cutoffs: Amphetamines ? 1000 ng/mL Barbiturates ?200 ng/mL Benzodiazepines ?? 200 ng/mL Cocaine ? 300 ng/mL Fentanyl ?1 ng/mL Opiates ? 300 ng/mL Oxycodone ? 100 ng/mL THC ?50 ng/mL Semi-quantitative assay for screening purposes only. Unconfirmed screening result should not be used for non-medical purposes. *ALTERNATE METHOD CONFIRMATION DONE UPON REQUEST ONLY* Radha ORDONEZ LAB URINE ORDERABLES Fi nal Result [facility] [address] [place] [address], [place] [phone] * Colonoscopy (12/18/2018) Colonoscopy No Interpretation , Abstracted Anatomical Region Laterality Modality Other Historical Provider MD HEALTH MAINTENANCE Final Result from Last 3 Months or Most Recently Relevant to Health Maintenance Insurance [employer] [place] Advance Directives Documents on File Type Date Recorded Patient Outbound Call Center Representative Expl anation Health Care Decision (hx) 04/02/2016 AD COLLINS DIRECTIVE Health Care Decision (hx) 04/02/2016 AD COLLINS DIRECTIVE Health Care Decision (hx) 04/02/2016 AD COLLINS DIRECTIVE Health Care Decision (hx) 04/02/2016 AD COLLINS DIRECTIVE Health Care Decision (hx) 04/02/2016 AD COLLINS DIRECTIVE Health Care Decision (hx) 04/02/2016 AD COLLINS DIRECTIVE Health Care Decision (hx) 04/02/2016 AD COLLINS DIRECTIVE Health Care Decision (hx) 04/02/2016 AD COLLINS DIRECTIVE Health Care Decision (hx) 04/02/2016 AD COLLINS DIRECTIVE Health Care Decision (hx) 04/02/2016 AD COLLINS DIRECTIVE Health Care Decision (hx) 04/02/2016 AD COLLINS DIRECTIVE Health Care Decision (hx) 04/02/2016 AD COLLINS DIRECTIVE Health Care Decision (hx) 04/02/2016 AD COLLINS DIRECTIVE Health Care Decision (hx) 04/02/2016 AD COLLINS DIRECTIVE Health Care Decision (hx) 04/02/2016 AD COLLINS DIRECTIVE Care Teams First Aid Attendant Relationship Specialty Start Date End Date Rafael Angeles MD [address] [place] [id number] PCP - General Internal Medicine 05/07/14
--- OUTSIDE RECORDS SUMMARY | 2024-11-18 14:58 | XMS_ITS | Encounter Summary ---
Author Organization [facility] Address [address] [place] [address] Care Team Providers Care Executive Account Manager Name Role Phone Rafael Angeles MD Primary Care Provider [phone] Rafael Angeles MD Primary Care Provider Olga Villareal MD Unavailable [phone] Rafy Dawkins Unavailable Alana Quiñonez NP Unavailable Reason for Referral * EXTERNAL (Routine) - Authorized/Booked Specialty Diagnoses / Procedures Referred By Wanda t Referred To Contact Ophthalmology Procedures REFERRAL TO EXTERNAL OPHTHALMOLOGY Zack Mora MD Gailun, Ronald J. [address] [address] Referral ID Status Reason Start Date Expiration Date V isits Requested Visits Authorized SEE NOTE Authorized/B ooked 03/28/2017 07/01/2017 1 1 Reason for Visit * Reason Onset Date Comments Ethernet Network Architect Feedback 03/28/2017 Encounter Details Date Type Department Care Team Description 03/28/2017 Telephone Adult Medicine [address] [phone] Zack Mora MD Ethernet Network Architect Feedback () Social History Tobacco Use Types Packs/Day Years [...] encounter Miscellaneous Notes * Telephone Encounter - Bertha Romero - 03/28/2017 2:03 PM EDT Please review this patients new referral request. The referral has been pended. Please complete thefollowing: If approved> sign order If denied>please give instructions and route to your practice nursing pool. Practice nurse should inform referrals and the patient if denied. * Telephone Encounter - Bia Erwin - 03/28/2017 1:28 PM EDT What insurance does the patient have today? [facility] [place] Effective 06/01/09: [facility] will not retro referral requests over 90 days. If request is for this please instruct patient to call the 800# on their insurance card to appeal. Do not submit a request. Referrals cannot be processed if the insurance is not accurate. If the insurance listed above in red is NO BILLING INFORMATION FOUND FOR THIS ENCOUTNER The patients correct insurance must be obtained and registered in [facility] or their referral can not be processed. Is this a retro request? NO. If yes for what date of service do you need the retro referral? Who is calling to request this referral? More If the caller is not the patient, what is their name? 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 YES Is this visit:Follow Up Address of Specialist:[address] [facility] Phone # of Specialist:[phone] Fax #: (if applicable):[phone] Does patient have an appointment scheduled?: YES Date of appointment- (including a retro-request): 04/07/17 Is this appointment related to: Not MVA, WC or Surgery related documented in this encounter Plan of Treatment Not on file documented as of this encounter Visit Diagnoses Not on filedocumented in this encounter Care Teams Executive Account Manager Relationship Specialty Start Date End Date Rafael Angeles MD [address] [place] [address] PCP - General Internal Medicine 03/16/20 Rafael Angeles MD [address] [place] [address] 45[address] PCP - General 04/01/16 03/15/20 Olga Villareal MD [address] [place] [address] 8[address]94 Specialist Cardiology 07/18/21 Rafy Dawkins PA [address] [place] [address] 87965 Specialist Cardiology 07/18/21 05/13/24 Alana Quiñonez NP [address] [place] [address] [facility] [place] [address] Cardiology 10/21/23 documented as of this encounter
--- OUTSIDE RECORDS SUMMARY | 2024-11-18 14:58 | XMS_ITS | Encounter Summary ---
Author Organization [facility] Address [address] [place] [address] Care Team Providers Care [place]audeville Actor Name Role Phone Rafael Angeles MD Primary Care Provider Olga Villareal MD Unavailable [phone] Rafy Dawkins Unavailable Alana Quiñonez NP Unavailable [phone] Reason for Visit * Reason Onset Date Comments Faxed Order 08/07/2023 [facility] [id number] Encounter Details Date Type Department Care Team Description 08/07/2023 Telephone Adult Medicine [facility] [address] [place] [address] [phone] Rafael Angeles MD [address] [place] [address] [phone] Faxed Order ([facility] [id number]) Social History Tobacco Use Types Packs/Day Years [...] on filedocumented in this encounter Care Teams [place] Actor Relationship Specialty Start Date End Date Rafael Angeles MD [address] [place] [address] PCP - General Internal Medicine 03/16/20 Olga Villareal MD [address] [place] [address] [phone] Specialist Cardiology 07/18/21 Rafy Dawkins PA [address] [place] [address] [phone] Specialist Cardiology 07/18/21 05/13/24 Alana Quiñonez, JOVANNA [address] [place] [address] [facility] [place] [address] Cardiology 10/21/23 documented as of this encounter
--- OUTSIDE RECORDS SUMMARY | 2024-11-18 14:58 | XMS_ITS | Encounter Summary ---
Author Organization [employer] [facility] Address [address] [place] [address] Care Team Providers Care Ship'S Pilot Name Role Phone Rafael Angeles MD Primary Care Provider Olga Villareal MD Unavailable [phone] Rafy Dawkins Unavailable Alana Quiñonez NP Unavailable Encounter Details Date Type Department Care Team Description 12/20/2023 Telephone Gastroenterology - [place] [facility] [address] [place] [phone] Khanh Freeman PA-C [address] [address] Social History Tobacco Use Types Packs/Day Years [...] * Telephone Encounter - Jeannie Hatch - 04/22/2024 12:59 PM EDT Booked Barium Swallow at [address] [place] [address] for patient on Seth 12th at 7:45am w/ arrival at 7:20am. Called the patient to notify of appointment details, including nothing to eat/drink after midnight. I also mailed an appointment letter. Order has been faxed to [phone]. * Telephone Encounter - Khanh Freeman PA-C - 04/22/2024 8:44 AM EDT Patient is looking to move forward with a barium swallow and will be scheduled for study. * Telephone Encounter - Jeannie Hatch - 04/21/2024 11:52 AM EDT Spoke to patient and advised. He would like to go forward with the barium swallow, thanks. * Telephone Encounter - Khanh Freeman PA-C - 04/21/2024 9:[address] Tillman direction of an endoscopy is not suggested at this point. We certainly can set him upfor a barium swallow if he would like to be scheduled. Please let me know and if so, then we can order the barium swallow. * Telephone Encounter - Margie Jorge - 04/19/2024 12:38 PM EDT Patient calling to see when he can have EGD done, relayed below message about cardiac issues, was not aware this message had been sent, please advise. Patient did note he had a cardiac procedure donein June with stents placed at [facility]. * Telephone Encounter - Khanh Freeman PA-C - 12/20/2023 11:57 AM EDT Please let patient know that due to his significant cardiac issues, it is not suggested for him to undergo an endoscopy at this point. Thank you documented in this encounter Plan of Treatment Not on file documented as of this encounter Visit Diagnoses Diagnosis Dysphagia, unspecified type- Primary documented in this encounter Care Teams Ship'S Pilot Relationship Specialty Start Date End Date Rafael Angeles MD [address] [place] [address] PCP - General Internal Medicine 03/16/20 Olga Villareal MD [address] [place] [address] [phone] Specialist Cardiology 07/18/21 Rafy Dawkins PA [address] [place] [address] Specialist Cardiology 07/18/21 05/13/24 Alnaa Quiñonez NP [address] [place] [address] [facility] [place] [address] Cardiology 10/21/23 documented as of this encounter
--- OUTSIDE RECORDS SUMMARY | 2024-11-18 14:58 | XMS_ITS | Encounter Summary ---
Author Organization [facility] Address [address] [place] [address] Care Team Providers Care Solar Project Manager Name Role Phone Rafael Angeles MD Primary Care Provider [phone] Rafael Angeels MD Primary Care Provider [phone] Olga Villareal MD Unavailable [phone] Rafy Dawkins Unavailable Alana Quiñonez NP Unavailable [phone] Encounter Details Date Type Department Care Team Description 12/14/2016 Pt. Non Urgent Medical Question Gastroenterology - [address] [phone] Art Nagy MD Social History Tobacco Use Types Packs/Day [...] as of this encounter Progress Notes * Jim Angeles M.A. - 12/16/2016 7:54 AM EDTFrom: Garo Priceellis To: Art Nagy MD Sent: 12/14/2016 8:16 AM EDT Subject: Abonial Discomfort Please set up an appointment my stomach, any time after 2:00 P.M. Unable to eat Thank You Garo documented in this encounter Plan of Treatment Not on file documented as of this encounter Visit Diagnoses Not on filedocumented in this encounter Care Teams Solar Project Manager Relationship Specialty Start Date End Date Rafael Angeles MD [address] [place] [address] PCP - General Internal Medicine 03/16/20 Rafael Angeles MD [address] [place] [address] [phone] PCP - General 04/01/16 03/15/20 Olga Villareal MD [address] [place] [address] [phone] Specialist Cardiology 07/18/21 Rafy Dawkins PA [address] [place] [address] [phone] Specialist Cardiology 07/18/21 05/13/24 Alana Quiñonez, JOVANNA [address] [place] [address] [facility] [place] [address] Cardiology 10/21/23 documented as of this encounter
--- OUTSIDE RECORDS SUMMARY | 2024-11-18 14:59 | XMS_ITS | Encounter Summary ---
Author Organization [employer] [facility] Address [address] [place] [address] Care Team Providers Care Sock Ironer Name Role Phone Rafael Angeles MD Primary Care Provider Rafael Angeles MD Primary Care Provider Olga Villareal MD Unavailable Rafy Dawkins Unavailable Alana Quiñonez NP Unavailable Encounter Details Date Type Department Care Team Description 05/22/2018 Supervisor Tumbling And Rolling Report Medical Records [address] [place] [address] Abstract, Provider Social History Tobacco Use Types [...] on filedocumented in this encounter Care Teams Sock Ironer Relationship Specialty Start Date End Date Rafael Angeles MD [address] [place] [address] PCP - General Internal Medicine 03/16/20 Rafael Angeles MD [address] [place] [address] PCP - General 04/01/16 03/15/20 Olga Villareal MD [address] [place] [address] [phone] Specialist Cardiology 07/18/21 Rafy Dawkins PA [address] [place] [address] [phone] Specialist Cardiology 07/18/21 05/13/24 Alana Quiñonez NP [address] [place] [address] [facility] [place] [address] Cardiology 10/21/23 documented as of this encounter
--- OUTSIDE RECORDS SUMMARY | 2024-11-18 14:59 | XMS_ITS | Encounter Summary ---
Author Organization [employer] [facility] Address [address] [place] [address] Care Team Providers Care Rejoiner Name Role Phone Rafael Angeles MD Primary Care Provider [phone] Olga Villareal MD Unavailable [phone] Rafy Dawkins Unavailable Alana Quiñonez NP Unavailable [phone] Encounter Details Date Type Department Care Team Description 12/27/2021 Orders Only Medical Records [address] [place] [address] Natalia Winston APRN 175 [facility] [address] [place] [address] Social History Tobacco Use Types [...] suspected to have Coronavirus/COVID-19? No / Unsure 12/28/2021 12:35 PM EDT documented as of this encounter Plan of Treatment Not on file documented as of this encounter Procedures Procedure Name Priority Date/Time Associated Diagnosis Comments OUTSIDE OXIMETRY Routine 12/24/2021 documented in this encounter Results * OUTSIDE OXIMETRY (12/24/2021) Natalia Winston [facility] PULMONOLOGY documented in this encounter Visit Diagnoses Not on filedocumented in this encounter Care Teams Rejoiner Relationship Specialty Start Date End Date Rafael Angeles MD [address] [place] [address] PCP - General Internal Medicine 03/16/20 Olga Villareal MD [address] [place] [address] [phone] Specialist Cardiology 07/18/21 Rafy Dawkins PA [address] [place] [address] [phone] Specialist Cardiology 07/18/21 05/13/24 Alana Quiñonez NP [address] [place] [address] [facility] [place] [address] Cardiology 10/21/23 documented as of this encounter
--- OUTSIDE RECORDS SUMMARY | 2024-11-18 14:59 | XMS_ITS | Encounter Summary ---
Author Organization [facility] Address [address] [place] [address] Care Team Providers Care Pooling Operator Name Role Phone Rafael Angeles MD Primary Care Provider [phone] Olga Villareal MD Unavailable [phone] Rafy Dawkins Unavailable Alana Quiñonez NP Unavailable [phone] Encounter Details Date Type Department Care Team Description 09/05/2023 Orders Only Medical Records [address] [place] [address] David Tello MD Social History Tobacco Use Types Packs/Day [...] Name Priority Date/Time Associated Diagnosis Comments OUTSIDE CT Routine 07/29/2023 documented in this encounter Results * OUTSIDE CT (07/29/2023) David Tello MD RADIOLOGY documented in this encounter Visit Diagnoses Not on filedocumented in this encounter Care Teams Pooling Operator Relationship Specialty Start Date End Date Rafael Angeles MD [address] [place] [address] PCP - General Internal Medicine 03/16/20 Olga Villareal MD [address] [place] [address] [phone] Specialist Cardiology 07/18/21 Rafy Dawkins PA [address] [place] [address] [phone] Specialist Cardiology 07/18/21 05/13/24 Alana Quiñonez NP [address] [place] [address] [facility] [address] Cardiology 10/21/23 documented as of this encounter
--- OUTSIDE RECORDS SUMMARY | 2024-11-18 14:59 | XMS_ITS | Encounter Summary ---
Author Organization [facility] [employer] [facility] Address [address] [place] [address] Care Team Providers Care Equities Trader Name Role Phone Rafael Angeles MD Primary Care Provider [phone] Olga Villareal MD Unavailable [phone] Rafy Dawkins Unavailable Alana Quiñonez NP Unavailable [phone] Encounter Details Date Type Department Care Team Description 08/19/2023 Manager Gaming Report Medical Records [address] [place] [address] David Tello MD Social History Tobacco Use [...] on filedocumented in this encounter Care Teams Equities Trader Relationship Specialty Start Date End Date Rafael Angeles MD [address] [place] [address] PCP - General Internal Medicine 03/16/20 Olga Villareal MD [address] [place] [address] Specialist Cardiology 07/18/21 Rafy Dawkins PA [address] [place] [address] Specialist Cardiology 07/18/21 05/13/24 Alana Quiñonez NP [address] [place] [address] [facility] [address] Cardiology 10/21/23 documented as of this encounter
--- OUTSIDE RECORDS SUMMARY | 2024-11-18 14:59 | XMS_ITS | Encounter Summary ---
Author Organization [employer] [facility] Address [address] [place] [address] Care Team Providers Care Body Sander Name Role Phone Rafael Angeles MD Primary Care Provider [phone] Olga Villareal MD Unavailable [phone] Rafy Dawkins Unavailable Alana Quiñonez NP Unavailable [phone] Encounter Details Date Type Department Care Team Description 06/10/[address] [facility] Medical Records [address] [place] [address] Abstract, Provider Social History Tobacco Use Types [...] suspected to have Coronavirus/COVID-19? No / Unsure 05/20/2022 8:16 AM EDT documented as of this encounter Plan of Treatment Not on file documented as of this encounter Visit Diagnoses Not on filedocumented in this encounter Care Teams Body Sander Relationship Specialty Start Date End Date Rafael Angeles MD [address] [place] [address] PCP - General Internal Medicine 03/16/20 Olga Villareal MD [address] [place] [address] [phone] Specialist Cardiology 07/18/21 Rafy Dawkins PA [address] [place] [address] [phone] Specialist Cardiology 07/18/21 05/13/24 Alana Quiñonez NP [address] [place] [address] [facility] [place] [address] Cardiology 10/21/23 documented as of this encounter
--- OUTSIDE RECORDS SUMMARY | 2024-11-18 14:59 | XMS_ITS | Encounter Summary ---
Author Organization [facility] [facility] Address [address] [place] [address] Care Team Providers Care Professional Wrestler Name Role Phone Rafael Angeles MD Primary Care Provider [phone] Olga Villareal MD Unavailable [phone] Rafy Dawkins Unavailable Alana Quiñonez NP Unavailable [phone] Encounter Details Date Type Department Care Team Description 09/26/2023 Brewery Worker Report Medical Records [address] [place] [address] Abstract, Provider Social History Tobacco Use Types [...] on filedocumented in this encounter Care Teams Professional Wrestler Relationship Specialty Start Date End Date Rafael Angeles MD [address] [place] [address] PCP - General Internal Medicine 03/16/20 Olga Villareal MD [address] [place] [address] 0[address]20 Specialist Cardiology 07/18/21 Rafy Dawkins PA [address] [place] [address] Specialist Cardiology 07/18/21 05/13/24 Alana Quiñonez NP [address] [place] [address] Dr [facility] [place] [address] Cardiology 10/21/23 documented as of this encounter
--- OUTSIDE RECORDS SUMMARY | 2024-11-18 14:59 | XMS_ITS | Encounter Summary ---
Author Organization [facility] Address [address] [place] [address] Care Team Providers Care Wrapper Off Name Role Phone Zack Mora MD Primary Care Provider Unavail able Rafael Angeles MD Primary Care Provider [phone] Rafael Angeles MD Primary Care Provider Olga Villareal MD Unavailable [phone] Rafy Dawkins Unavailable Alana Quiñonez NP Unavailable [phone] Encounter Details Date Type Department Care Team Description 06/27/2014 Controlled Substance Contract with Plan Medical Records [address] [place] [address] Abstract, Provider Social History Tobacco Use Types [...] on filedocumented in this encounter Care Teams Wrapper Off Relationship Specialty Start Date End Date Zack Mora MD PCP - General Internal Medicine 05/09/14 03/31/16 Rafael Angeles MD [address] [place] [address]20 PCP - General Internal Medicine 03/16/20 Rafael Angeles MD [address] [place] [address]2461 PCP - General 04/01/16 03/15/20 Olga Villareal MD [address] [place] [address] [phone] Specialist Cardiology 07/18/21 Rafy Dawkins PA [address] [place] [address] [phone] Specialist Cardiology 07/18/21 05/13/24 Alana Quiñonez, JOVANNA [address] [place] [address] [facility] [place] [address] Cardiology 10/21/23 documented as of this encounter
--- OUTSIDE RECORDS SUMMARY | 2024-11-18 14:59 | XMS_ITS | Encounter Summary ---
Author Organization [employer] [facility] Address [address] [place] [address] Care Team Providers Care Photovoltaic Panel Installer Name Role Phone Rafael Angeles MD Primary Care Provider [phone] Olga Villareal MD Unavailable [phone] Rafy Dawkins Unavailable Alana Quiñonez NP Unavailable [phone] Encounter Details Date Type Department Care Team Description 12/10/2021 Hourly Sign Language Interpreter Report Medical Records [address] [place] [address] Lyle Pitt MD Social History Tobacco Use [...] suspected to have Coronavirus/COVID-19? No / Unsure 12/13/2021 11:10 AM EDT documented as of this encounter Plan of Treatment Not on file documented as of this encounter Visit Diagnoses Not on filedocumented in this encounter Care Teams Photovoltaic Panel Installer Relationship Specialty Start Date End Date Rafael Angeles MD [address] [place] [address]287 PCP - General Internal Medicine 03/16/20 Olga Villareal MD [address] [place], [place] [phone] Specialist Cardiology 07/18/21 Rafy Dawkins PA [address] [place], [place] [phone] Specialist Cardiology 07/18/21 05/13/24 Alana uQiñonez NP [address] [place] [address] [facility] [place] [address] Cardiology 10/21/23 documented as of this encounter
--- OUTSIDE RECORDS SUMMARY | 2024-11-18 14:59 | XMS_ITS | Encounter Summary ---
Author Organization [facility] Address [address] [place] [address] Care Team Providers Care Machine Operator Cane Cutter Name Role Phone Rafael Angeles MD Primary Care Provider Olga Villareal MD Unavailable [phone] Rafy Dawkins Unavailable Alana Quiñonez NP Unavailable Reason for Visit * Reason Onset Date Comments Mychart Rx Refill 03/21/2022 Encounter Details Date Type Department Care Team Description 03/21/2022 Refill Adult Medicine [address] [phone] Rafael Angeles MD [address] [place] [address] [phone] Mychart Rx Refill Social History Tobacco Use [...] encounter Miscellaneous Notes * Telephone Encounter - Naren Kuhn C.M.A. - 03/21/2022 1:23 PM EDT Tramadol was d/c by Isaac on 03/15/22 'completed course of treatment' IZABELLA 01/29/22 plan: Contract reviewed. UDS is up to date and is appropriate. Appt 06/18/22 Lab Results Component Value Date URBENZO POSITIVE 10/12/2021 UROPIATES NONE DETECTED 10/12/2021 UROXYCODONE NONE DETECTED 10/12/2021 URBARBITUATE NONE DETECTED 10/12/2021 PAINAMPHETAM NONE DETECTED 10/12/2021 PAINCOCAINE NONE DETECTED 10/12/2021 PAINCANNABIN NONE DETECTED 10/12/2021 Please review and advise, appropriate? Pt is due for a refill, last filled 01/29/22 * Telephone Encounter - Viviana Barrera M.A. - 03/21/2022 12:25 PM EDTFrom: Garo Davis To: Office of Patrice Angeles Sent: 03/21/2022 12:10 PM EDT Subject: Medication Renewal Request Refills have been requested for the following medications: Other - Tramadol Preferred pharmacy: [id number] [place], [place] - [address] [place], [place] [address]susu; LIN documented in this encounter Plan of Treatment Not on file documented as of this encounter Visit Diagnoses Not on filedocumented in this encounter Care Teams Machine Operator Cane Cutter Relationship Specialty Start Date End Date Rafael Angeles MD [address] [place] [address] 138[address] PCP - General Internal Medicine 03/16/20 Olga Villareal MD [address] [place] [address] [phone] Specialist Cardiology 07/18/21 Rafy Dawkins PA [address] [place] [address] [phone] Specialist Cardiology 07/18/21 05/13/24 Alana Quiñonez NP [address] [place] [address] Dr [facility] [place] [address] Cardiology 10/21/23 documented as of this encounter
--- OUTSIDE RECORDS SUMMARY | 2024-11-18 14:59 | XMS_ITS | Encounter Summary ---
Author Organization [facility] Address [address] [place] [address] Care Team Providers Care Transit Manager Name Role Phone Zack Mora MD Primary Care Provider Unavail able Rafael Angeles MD Primary Care Provider [phone] Rafael Angeles MD Primary Care Provider [phone] Olga Villareal MD Unavailable [phone] Rafy Dawkins Unavailable Alana Quiñonez NP Unavailable [phone] Reason for Visit * Reason Onset Date Comments Wrist Pain 09/19/2014 Encounter Details Date Type Department Care Team Description 09/19/2014 Telephone Adult [address] [id number] Zack Mora MD Wrist Pain Social History Tobacco Use Types Packs/Day [...] Telephone Encounter - Christina Watts R.N. - 09/19/2014 10:18 AM EST Call #1 placed to patient He states there is a bone sticking up on R hand side of L wrist He states it has been there for about a week and is getting bigger, unable to wear his watch. It ispainful to touch. He denies any fall or injury to wrist. The lump is hard, no change in skintone, no redness, no bruising, there is no change is temp in arm/wrist Requesting appt for today for eval. Appt scheduled for today @ 130pm with Praveena Antony. * Telephone Encounter - Raysa Nichols - 09/19/2014 10:04 AM EST Symptoms patient is presenting: patient has a lump on wrist and wants to be seen today . Please call How long has patient had these symptoms?: 1 week PCP: Zack Mora Payor: JOLIE ELMORE / Plan: JOLIE ELMORE $25/$35 [place] / Product Type: OTHER documented in this encounter Plan of Treatment Not on file documented as of this encounter Visit Diagnoses Not on filedocumented in this encounter Care Teams Transit Manager Relationship Specialty Start Date End Date Zack Mora MD PCP - General Internal Medicine 05/09/14 03/31/16 Rafael Angeles MD [address] [place] [address] [phone] PCP - General Internal Medicine 03/16/20 Rafael Angeles MD [address] [place] [address] 85722 PCP - General 04/01/16 03/15/20 Olga Villareal MD [address] [place] [address] [phone] Specialist Cardiology 07/18/21 Rafy Dawkins PA [address] [place] [address] 74765 Specialist Cardiology 07/18/21 05/13/24 Alana Quiñonez, JOVANNA [address] [place] [address] [facility] [place] [address] Cardiology 10/21/23 documented as of this encounter
--- OUTSIDE RECORDS SUMMARY | 2024-11-18 14:59 | XMS_ITS | Encounter Summary ---
Author Organization [facility] Address [address] [place] [address] Care Team Providers Care Nurse Practitioner Hospitalist Name Role Phone Rafael Angeles MD Primary Care Provider [phone] Rafael Angeles MD Primary Care Provider [phone] Olga Villareal MD Unavailable [phone] Rafy Dawkins Unavailable Alana Quiñonez NP Unavailable [phone] Encounter Details Date Type Department Care Team Description 10/04/2018 [facility] Medical Records [address] [place] [address] Emiliano Roberto, Social History Tobacco Use Types Packs/Day Years [...] on filedocumented in this encounter Care Teams Nurse Practitioner Hospitalist Relationship Specialty Start Date End Date Rafael Angeles MD [address] [place] [address] PCP - General Internal Medicine 03/16/20 Rafael Angeles MD [address] [place] [address] [phone] PCP - General 04/01/16 03/15/20 Olga Villareal MD [address] [place], [place] [phone] Specialist Cardiology 07/18/21 Rafy Dawkins PA [address] [place] [address] [phone] Specialist Cardiology 07/18/21 05/13/24 Alana Quiñonez NP [address] [place] [address] [facility] [place] [address] Cardiology 10/21/23 documented as of this encounter
--- OUTSIDE RECORDS SUMMARY | 2024-11-18 14:59 | XMS_ITS | Encounter Summary ---
Author Organization [facility] Address [address] [place] [address] Care Team Providers Care Professor Of Nursing Name Role Phone Rafael Angeles MD Primary Care Provider [phone] Olga Villareal MD Unavailable [phone] Rafy Dawkins Unavailable Alana Quiñonez NP Unavailable [phone] Reason for Visit * Reason Onset Date Comments Urine Drug Screen 09/03/2023 Encounter Details Date Type Department Care Team Description 09/03/2023 Telephone Adult Medicine [address] [phone] Rafael Angeles MD [address] [place] [address] [phone] Urine Drug Screen Social History Tobacco Use Types Packs/Day Years [...] on file documented as of this encounter Patient Instructions * Patient Instructions* Lauren Nye M.A. - 09/03/2023 9:30 AM EST What to expect at your Urine Drug Screening Appointment. Dear Patient, The process used by the [facility] to obtain a ???urine drug screen?? is similar to a ???legal chain of custody?? . This means that specific precautions are taken to assure your provider that the test results are accurate. 1. Please be prepared to have a urine sample collected. 2. When you check in at the Lab you must show a picture ID for identification purposes. A copy of your ID will be made for our records.. If you do not have an ID, testing cannot proceed. 3. The Lab staff will ask you to wash your hands, remove your coat, hat, etc. and empty your pockets. We recommended you bring as few possessions as possible with you. ?? Your items will be locked in a secure box in the bathroom with you. 4. The water will be turned off in the bathroom and there will be a colorant or dye in the toilet. You will not be able to run the water until a Lab staff member instructs you to do so. 5. When you have collected your urine specimen you will give the sample to the Lab staff. They willseal the cup in front of you. 6. The water will be turned back for you to wash your hands and flush the toilet and your personal items will be return to you at this time. 7. Your test is complete and the results will go the Physician that ordered the test. If you have any questions please contact the lab at: [facility] [place] [facility] [place] documented in this encounter Miscellaneous Notes * Telephone Encounter - Lauren Nye M.A. - 09/03/2023 12:20 PM EST Pt had UDS done today - results still in process. FYI to PCP. * Telephone Encounter - Lauren Nye M.A. - 09/03/2023 9:31 AM EST Pt was notified to complete a random urine drug screen in our [facility] by 10:00 AM 09/04/2023. The patient was also instructed that failure to complete this urine drug screen, as requested, would jeopardize their Controlled Substance Contract with [facility]. The patient expressed understanding of the instructions and confirmed that they will arrive by that date. documented in this encounter Plan of Treatment Scheduled Orders Name Type Priority Associated Diagnoses Orde r Schedule G DRUG SCREENING CANNABINOIDS NATURAL Lab Routine Encounter for long-term (current) use of medications Expected: 09/03/2023, Expires: 09/02/2024 [facility] DRUG SCREENING COCAINE Lab Routine Encounter for long-term (current) use of medications Expected: 09/03/2023, Expires: 09/02/2024 [facility] DRUG SCREEN QUANT AMPHETAMINES 3 OR 4 Lab Routine Encounter for long-term (current) use of medications Expected: 09/03/2023, Expires: 09/02/2024 [facility] DRUG/SUBSTANCE DEFINITIVE QUAL/QUANT NOS 1-3 Lab Routine Encounter for long-term (current) use of medications Expected: 09/03/2023, Expires: 09/02/2024 [facility] DRUG SCREENING BENZODIAZEPINES 1-12 Lab Routine Encounter for long-term (current) use of medications Expected: 09/03/2023, Expires: 09/02/2024 documented as of this encounter Results * OXYCODONE, URINE (09/03/2023 10:03 AM EST) URINE OXYCODONE NONE DETECTED ND 09/03/2023 6:05 PM EST [facility] Comment: Assay cutoff 100 ng/mL Semi-quantitative assay for screening purposes only. Unconfirmed screening result should not be used for non-medical purposes. *ALTERNATE METHOD CONFIRMATION DONE UPON REQUEST ONLY* 09/03/2023 10:0 3 AM EST 09/03/2023 10:04 AM EST Narrative [facility] - 09/03/2023 6:05 PM EST Release to patient->Immediate Rafael Angeles MD LAB [facility] * (ABNORMAL) DRUG OF ABUSE SCREEN (09/03/2023 10:03 AM EST) BENZODIAZEPINE, URINE POSITIVE(A) ND 09/03/2023 6:05 PM EST [facility] Comment: Assay cutoff 200 ng/mL Semi-quantitative assay for screening purposes only. Unconfirmed screening result should not be used for non-medical purposes. *ALTERNATE METHOD CONFIRMATION DONE UPON REQUEST ONLY* OPIATES, URINE NONE DETECTED ND 09/03/2023 6:05 PM EST [facility] Comment: Assay cutoff 300 ng/mL Semi-quantitative assay for screening purposes only. Unconfirmed screening result should not be used for non-medical purposes. *ALTERNATE METHOD CONFIRMATION DONE UPON REQUEST ONLY* BARBITURATES, URINE NONE DETECTED ND 09/03/2023 6:05 PM EST [facility] Comment: Assay cutoff 200 ng/mL Semi-quantitative assay for screening purposes only. Unconfirmed screening result should not be used for non-medical purposes. *ALTERNATE METHOD CONFIRMATION DONE UPON REQUEST ONLY* PAIN AMPHETAMINES NONE DETECTED ND 09/03/2023 6:05 PM EST [facility] Comment: Assay cutoff 1000 ng/mL Semi-quantitative assay for screening purposes only. Unconfirmed screening result should not be used for non-medical purposes. *POSITIVE RESULTS ARE AUTOMATICALLY SENT FOR ALTERNATE METHOD CONFIRMATION* PAIN COCAINE NONE DETECTED ND 09/03/2023 6:05 PM EST [facility] Comment: Assay cutoff 300 ng/mL Semi-quantitative assay for screening purposes only. Unconfirmed screening result should not be used for non-medical purposes. *POSITIVE RESULTS ARE AUTOMATICALLY SENT FOR ALTERNATE METHOD CONFIRMATION* PAIN CANNABINOID NONE DETECTED ND 09/03/2023 6:05 PM EST [facility] Comment: Assay cutoff 50 ng/mL Semi-quantitative assay for screening purposes only. Unconfirmed screening result should not be used for non-medical purposes. *POSITIVE RESULTS ARE AUTOMATICALLY SENT FOR ALTERNATE METHOD CONFIRMATION* 09/03/2023 10:0 3 AM EST 09/03/2023 10:04 AM EST [facility] - 09/03/2023 6:05 PM EST Release to patient->Immediate Rafael Angeles MD LAB [facility] * G DRUG SCREENING OPIATES 1 OR MORE (09/03/2023 10:03 AM EST) Codeine GCMS Negative ng/mL 09/05/2023 4:41 PM EST [facility] Morphine GCMS Negative ng/mL 09/05/2023 4:41 PM EST [facility] Hydromorphone GCMS Negative ng/mL 2023 4:41 PM EST [facility] Hydrocodone GCMS Negative ng/mL 09/05/19 4:41 PM EST [facility] PAIN OPIATE CREAT 66 20 - 250 mg/dL 09/05/2023 4:41 PM EST [facility] PAIN OPIATE ADULTERANT Negative 09/05/2023 4:41 PM EST [facility] Comment: ? Confirmation (LC/MS/MS) Decision Limits ??Morphine ?25 ng/mL ??Codeine ? 25 ng/mL ??Hydrocodone ? 25 ng/mL ??Hydromorphone ? 25 ng/mL ??Oxycodone ? 25 ng/mL ??Oxymorphone ? 25 ng/mL ??Adulterant Decision Limit: ?? General Oxidants ? 200 ug/mL ??The adulterant assay tests for General Oxidants, ??including Chromates and Nitrites. ??Adulterants are ??substances either ingested or added directly to a ??urine specimen to prevent the detection of drug use. If applicable, any drug confirmation testing reported here was developed and the performance characteristics determined by [facility]. This confirmation testing has not been cleared or approved by the FDA. The laboratory is regulated under CLIA as qualified to perform high-complexity testing. This test is used for patient testing purposes. It should not be regarded as investigational or for research. Test performed at [facility], [address] [place], [place] ??[address] ? [phone] Nimo Minaya MD, PhD - Jewelry Sales Representative Oxycodone GCMS Negative ng/mL 09/05/2023 4:41 PM EST [facility] Oxymorphone GCMS Negative ng/mL 09/05/19 4:41 PM EST [facility] 09/03/2023 10:0 3 AM EST 09/03/2023 10:04 AM EST [facility] - 09/05/2023 4:41 PM EST Release to patient->Immediate Rafael Angeles MD LAB [facility] documented in this encounter Visit Diagnoses Diagnosis Encounter for long-term (current) use of medications- Primary Encounter for long-term (current) use of other medications documented in this encounter Care Teams Professor Of Nursing Relationship Specialty Start Date End Date Rafael Angeles MD [address] [place] [address] [phone] PCP - General Internal Medicine 03/16/20 Olga Villareal MD [address] [place] [address]20 Specialist Cardiology 07/18/21 Rafy Dawkins PA [address] [place] [address]20 Specialist Cardiology 07/18/21 05/13/24 Alana Quiñonez NP [address] [place] [address] Dr [facility] [place], [place] [phone] Cardiology 10/21/23 documented as of this encounter
--- OUTSIDE RECORDS SUMMARY | 2024-11-18 14:59 | XMS_ITS | Encounter Summary ---
Author Organization [facility] Address [address] [place] [address] Care Team Providers Care Sales Estimator Name Role Phone Zack Mora MD Primary Care Provider Unavail able Rafael Angeles MD Primary Care Provider Rafael Angeles MD Primary Care Provider Ogla Villareal MD Unavailable [phone] Rafy Dawkins Unavailable Alana Quiñonez NP Unavailable [phone] Encounter Details Date Type Department Care Team Description 09/04/2014 Refill Adult Medicine [address] [address] Zack Mora MD Social History Tobacco Use [...] on filedocumented in this encounter Care Teams Sales Estimator Relationship Specialty Start Date End Date Zack Mora MD PCP - General Internal Medicine 05/09/14 03/31/16 Rafael Angeels MD [address] [place] [id number] PCP - General Internal Medicine 03/16/20 Rafael Angeles MD [address] [place] [address] [phone] PCP - General 04/01/16 03/15/20 Olga Villareal MD [address] [place] [address] [phone] Specialist Cardiology 07/18/21 Rafy Dawkins PA [address] [place] [address] [phone] Specialist Cardiology 07/18/21 05/13/24 Alana Quiñonez, JOVANNA [address] [place] [address] [facility] [place] [address] Cardiology 10/21/23 documented as of this encounter
--- OUTSIDE RECORDS SUMMARY | 2024-11-18 14:59 | XMS_ITS | Encounter Summary ---
Author Organization [facility] Address [address] [place] [address] Care Team Providers Care Emergency Manager Name Role Phone Rafael Angeles MD Primary Care Provider [phone] Olga Villareal MD Unavailable [phone] Rafy Dawkins Unavailable Alana Quiñonez NP Unavailable [phone] Reason for Visit * Reason Onset Date Comments Blood Pressure Elevated 03/31/2023 Encounter Details Date Type Department Care Team Description 03/31/2023 Telephone Adult Medicine [address] [phone] Rafael Angeles MD [address] [place] [address] [phone] Blood Pressure Elevated Social History Tobacco Use Types Packs/Day Years [...] Recorded In the last 10 days, have vane u been in contact with someone who was confirmed or suspected to have Coronavirus/COVID-19? No / Unsure 04/02/2023 7:45 AM EDT documented as of this encounter Miscellaneous Notes * Telephone Encounter - Rama Morales RN - 04/01/2023 9:17 AM EDT Called pt and requested him to notify the office what his BP is after he has taken the Ativan. Pt is currently out of the house but will let us know after he takes the Ativan. * Telephone Encounter - Rafael Angeles MD - 04/01/2023 9:08 AM EDT Can we please ask the patient to let us know what is pressure is after he uses the ativan? * Telephone Encounter - Rama Morales RN - 04/01/2023 8:38 AM EDT Called pt and notified him Dr. Angeles sent over a prescription of Ativan to his pharmacy. Pt checked his BP one hour after taking his BP medications this morning and it was noted to be 166/93, HR 88. * Telephone Encounter - Rafael Angeles MD - 03/31/2023 6:19 PM EDT bp likely related to recent of his rx for ativan sent can we please ask pt to update up on his blood pressure * Telephone Encounter - Rama Morales RN - 03/31/2023 9:25 AM EDT Pt has had hypertension for 1 day. He reports his on Friday. He reports his BP today was 177/73 and 161/72 before taking his medications. He was instructed to recheck his BP after taking his medications. He is currently out and unable to recheck his BP but reports he will do so once he returns home. He was instructed to go to the ER if his SBP was > 170. No CP or SOB. He is complaining of a cough for 2-3 weeks. No history of thoracic or abdominal dissection. No severe headache, blurred vision, nausea or vomiting. No drowsiness or confusion. No persistent numbness and tingling in hands and feet. They are not coughing up blood or blood tinged sputum. No persistent nose bleed unresponsive to home care measures. Their diastolic blood pressure is not > 110 mm Hg. They deny severe weakness. They do have a history of HTN with a BP > 160/100. No dizziness or lightheadedness. They reports recent increase in stress. They deny increased use of alcohol. Their blood pressure is elevated and they have not missed a dose of their medication. Home Care: ----Measure BP weekly in > 140/90 -------Avoid smoking and alcohol -------Eat a well balanced, low fat, low salt diet. If overweight start a weight reduction program.Discontinue use of caffeine, nicotine and licorice. -------Exercise regularly. Start with walking. -------Learn how to manage stress effectively. Read, exercise, take classes on stress reduction, meditate, do Yoga. -------If taking BP medication avoid cold remedies with antihistamines and decongestants. Consult with PCP before taking such medications. -------Take BP medication regularly. Do not skip doses. Do not stop or changed medication without consulting PCP. -------When experiencing symptoms of high blood pressure do not drive. Pt's this 03/29/23. He is requesting a prescription for Ativan to assist with this difficult process. * Telephone Encounter - Thien Chaney - 03/31/2023 9:07 AM EDT Symptoms patient is presenting: Pt stated his Friday, hes blood pressure is 176,its slowly coming down but doesn't want it to spike again through everything that's going on currently. Taking all the medication he needs. Patient did ask if he can be perscribed lorazapam again to help him through this difficult tme. For ALL patients calling to schedule any appointment (routine, sick visit, follow up, consult, etc.) in the outpatient setting please ask the following questions: ?? Do you have fever of higher than 101, sore throat with difficulty swallowing or severe shortnessof breath? NO If YES to any of these above symptoms, send a message to triage and do not book. Red dot. If no, an audio or video visit should be booked. ?? Have you had close contact with someone with Coronavirus in the last 14 days? NO ?? Have you traveled abroad? NO ?? Have you traveled recently to another state outside of [place], [place], [place], [place], [place], [place], [place]? NO o If yes, did you quarantine for 14 days or have a negative covid test? NO If yes to any of the above, patient is not to be scheduled in office until after 14 day quarantine or negative covid test. If pain or injury related was it due to an accident at work or from a motor vehicle accident? NO If yes, gather 3rd green party insurance information Date of accident/Injury: How long has patient had these symptoms?: 03/29/23 PCP: Rafael Angeles Payor: JOLIE ELMORE / Plan: JOLIE ELMORE $0 [place] / Product Type: OTHER documented in this encounter Plan of Treatment Not on file documented as of this encounter Visit Diagnoses Not on filedocumented in this encounter Care Teams Emergency Manager Relationship Specialty Start Date End Date Rafael Angeles MD [address] [place] [phone] PCP - General Internal Medicine 03/16/20 Olga Villareal MD [address] [place] [address] [phone] Specialist Cardiology 07/18/21 Rafy Dawkins PA [address] [place] [address] [phone] Specialist Cardiology 07/18/21 05/13/24 Alana Quiñonez NP [address] [place] [address] [facility] [place] [address] Cardiology 10/21/23 documented as of this encounter
--- OUTSIDE RECORDS SUMMARY | 2024-11-18 14:59 | XMS_ITS | Encounter Summary ---
Author Organization [facility] Address [address] [place] [address] Care Team Providers Care Regional Telecommunications Specialist Name Role Phone Rafael Angeles MD Primary Care Provider [phone] Rafael Angeles MD Primary Care Provider [phone] Olga Villareal MD Unavailable [phone] Rafy Dawkins Unavailable Alana Quiñonez NP Unavailable [phone] Reason for Visit * Reason Onset Date Comments Call From Pharmacy 04/08/2018 Encounter Details Date Type Department Care Team Description 04/08/2018 Telephone Adult Medicine [address] [address] Zack Mora MD Call From Pharmacy Social History Tobacco Use Types Packs/Day Years Used Date Smoking Tobacco: Former Cigarettes 1 29 0 1957 - 09/01/1985 Smokeless Tobacco: Former Alcohol Use Standard Drinks/Week Comments Yes 0 (1 standard drink = 0.6 oz pur e alcohol) 1-2 glass per day Sex Assigned at Date Recorded Male 04/05/2020 7:18 AM E DT Job Start Date Occupation Industry Not on file Not on file Not on file documented as of this encounter Miscellaneous Notes * Telephone Encounter - Aaliyah Carolina C.M.A. - 04/09/2018 9:31 AM EDT Manually faxed to [facility] on file * Telephone Encounter - Brunilda Cox M.A. - 04/08/2018 1:39 PM EDT Lab Results Component Value Date URINEOXYCOD NEGATIVE 06/10/2017 URBENZO POSITIVE 06/10/2017 URAMPHETAMIN POSITIVE 06/10/2017 URMARIJUANA NEGATIVE 06/10/2017 UROPIATES NEGATIVE 06/10/2017 URBARBITUATE NEGATIVE 06/10/2017 URCOCAINE NEGATIVE 06/10/2017 HYDROCODONE Negative 06/21/2016 Controlled substance contract and last issue date of medication reviewed. Patient is due for medication. * Telephone Encounter - Bia Erwin - 04/08/2018 12:46 PM EDT Who is calling? A pharmacist: Pharmacy: Name of the medication lorazepam (ATIVAN) 1 MG tablet What is the specific problem or interaction? On backorder for 1 mg but 2mg is stock If the patient is having a problem with taking the med - how long has the problem been going on? N/A documented in this encounter Plan of Treatment Not on file documented as of this encounter Visit Diagnoses Not on filedocumented in this encounter Care Teams Regional Telecommunications Specialist Relationship Specialty Start Date End Date Rafael Angeles MD [address] [place] [phone] PCP - General Internal Medicine 03/16/20 Rafael Angeles MD [address] [place] [phone] PCP - General 04/01/16 03/15/20 Olga Villareal MD [address] [place] [address] Specialist Cardiology 07/18/21 Rafy Dawkins PA [address] [place] [address] Specialist Cardiology 07/18/21 05/13/24 Alana Quiñonez NP [address] [place] [address] [facility] [place] [address] Cardiology 10/21/23 documented as of this encounter
--- OUTSIDE RECORDS SUMMARY | 2024-11-18 14:59 | XMS_ITS | Encounter Summary ---
Author Organization [facility] Address [address] [place] [address] Care Team Providers Care Pan Cleaner Name Role Phone Rafael Angeles MD Primary Care Provider [phone] Olga Villareal MD Unavailable [phone] Rafy Dawkins Unavailable Alana Quiñonez NP Unavailable [phone] Encounter Details Date Type Department Care Team Description 05/17/2022 [facility] Medical Records [address] [place] [address] [facility] Social History Tobacco Use Types Packs/Day Years [...] Name Priority Date/Time Associated Diagnosis Comments OUTSIDE EKG Routine 05/17/2022 OUTSIDE PLAIN FILM Routine 05/17/2022 OUTSIDE LAB Routine 05/17/2022 OUTSIDE LAB Routine 05/17/2022 documented in this encounter Results * OUTSIDE PLAIN FILM (05/17/2022) Provider Abstract RADIOLOGY * OUTSIDE LAB (05/17/2022) Provider Abstract LAB * OUTSIDE LAB (05/17/2022) Provider Abstract LAB * OUTSIDE EKG (05/17/2022) Provider Abstract CARDIOLOGY documented in this encounter Visit Diagnoses Not on filedocumented in this encounter Care Teams Pan Cleaner Relationship Specialty Start Date End Date Rafael Angeles MD [address] [place] [address] PCP - General Internal Medicine 03/16/20 Olga Villareal MD [address] [place] [address] 77235 Specialist Cardiology 07/18/21 Rafy Dawkins PA [address] [place] [address] 42974 Specialist Cardiology 07/18/21 05/13/24 Alana Quiñonez NP [address] [place] [address] [facility] [place] [address] Cardiology 10/21/23 documented as of this encounter
--- OUTSIDE RECORDS SUMMARY | 2024-11-18 14:59 | XMS_ITS | Encounter Summary ---
Author Organization [facility] Address [address] [place] [address] Care Team Providers Care Guest Service Manager Name Role Phone Rafael Angeles MD Primary Care Provider Rafael Angeles MD Primary Care Provider [phone] Olga Villareal MD Unavailable [phone] Rafy Dawkins Unavailable Alana Quiñonez NP Unavailable [phone] Encounter Details Date Type Department Care Team Description 10/05/2018 Pt. Non Urgent Medical Question Cardiology - [place] [address] [place] [address] [phone] Tamiko Brooks DNP [address] [place] [address] [phone] Social History Tobacco Use Types Packs/Day Years [...] as of this encounter Progress Notes * Shanell Cedeno L.P.N. - 10/05/2018 3:42 PM ESTFrom: Garo Susan To: Tamiko Brooks DNP,PERCOLATOR OPERATOR Sent: 10/05/2018 3:31 PM EST Subject: Pain I had chest pain Friday night. Scale of 1-10 it was a 10 middle of my chest. 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 He sent a script to [facility]. Pharmacist said 10 nitro was to much. I was taken by Ambulance Sat. Tamiko, Please help me.. documented in this encounter Plan of Treatment Not on file documented as of this encounter Visit Diagnoses Not on filedocumented in this encounter Care Teams Guest Service Manager Relationship Specialty Start Date End Date Rafael Angeles MD [address] [place] [address] 49306 PCP - General Internal Medicine 03/16/20 Rafael Angeles MD [address] [place] [address] 23423 PCP - General 04/01/16 03/15/20 Olga Villareal MD [address] [place] [address] 15939 Specialist Cardiology 07/18/21 Rafy Dawkins PA [address] [place] [address] 48038 Specialist Cardiology 07/18/21 05/13/24 Alana Quiñonez, JOVANNA [address] [place] [address] [facility] [place] [address] Cardiology 10/21/23 documented as of this encounter
--- OUTSIDE RECORDS SUMMARY | 2024-11-18 14:59 | XMS_ITS | Clinical Summary ---
Author Organization [facility] Address [address] [place] [address] Care Team Providers Care Extrusion Technician Name Role Phone Unavailable Primary Care Provider Unavailabl e Social History Tobacco Use Types Packs/Day Years Used Date Smoking Tobacco: Never Assessed Sex and Gender Information Value Date Recorded Sex Assigned at Not on file Gender Identity Not on file Sexual Orientation Not on file Plan of Treatment Health Maintenance Due Date Last Done Comments DTaP/Tdap/Td Vaccines (1 - Tdap) 02/19/1960 Pneumococcal Vaccines 50+ (1 of 1 - PCV) 1991 Zoster (Shingles) Vaccine (1 of 2) 1991 RSV Vaccine 60 years and old er and Patients (1 - 1-dose 75+ series) 02/19/2016 COVID-19 Vaccine (2023-2 5 season) 2024 Hepatitis B Vaccines Aged Out No long er eligible based on patient's age to complete this topic
--- OUTSIDE RECORDS SUMMARY | 2024-11-18 14:59 | XMS_ITS | Encounter Summary ---
Author Organization [facility] [employer] [facility] Address [address] [place] [address] Care Team Providers Care Picker Feeder Name Role Phone Rafael Angeles MD Primary Care Provider [phone] Rafael Angeles MD Primary Care Provider Olga Villareal MD Unavailable [phone] Rafy Dawkins Unavailable Alana Quiñonez NP Unavailable [phone] Reason for Visit * Reason Onset Date Comments DME Request 08/19/2018 Encounter Details Date Type Department Care Team Description 08/19/2018 Telephone Adult Medicine [address] [address] Randy Monsalve MD [address] [place] [phone] DME Request Social History Tobacco Use Types Packs/Day [...] encounter Miscellaneous Notes * Telephone Encounter - Rosa Arana L.P.N. - 08/21/2018 10:47 AM EST O2 was ordered by [facility] Request faxed to [employer] and message forwarded * Telephone Encounter - Dania Boss - 08/19/2018 12:28 PM EST Name of Product: Oxygen equipment Specific information about product documentation fx request form to be completed # Needed see fax Reason patient is asking for this supply? Patient Active Problem List Diagnosis Code ??? Gout M10.9 ??? Hypertension I10 ??? GERD (gastroesophageal reflux disease) K21.9 ??? Hypercholesterolemia E78.00 ??? Anxiety F41.9 ??? CTS (carpal tunnel syndrome) G56.00 ??? DJD (degenerative joint disease) M19.90 ??? Seizure (HCC) R56.9 ??? Erectile dysfunction N52.9 ??? Trigeminal neuralgia G50.0 ??? Insomnia G47.00 ??? Hyperlipidemia E78.5 ??? Thoracic aortic aneurysm (HCC) I71.2 ??? Obstructive sleep apnea hypopnea, moderate AHI 19 G47.33 ??? Chronic bronchitis (HCC) J42 ??? Angina pectoris (HCC) I20.9 ??? 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 If yes , when?: unknown Have you discussed the need for this supply with a provider at a recent visit? yes If yes, with who and when? Shante Centeno at Urgent Care in [facility] on 08-15-18 When completed: Fax to other office/MD at fax # [phone] Have you told the patient it will take 7-10 days for completion of this request? NO documented in this encounter Plan of Treatment Not on file documented as of this encounter Visit Diagnoses Not on filedocumented in this encounter Care Teams Picker Feeder Relationship Specialty Start Date End Date Rafael Angeles MD [address] [place] [address] PCP - General Internal Medicine 03/16/20 Rafael Angeles MD [address] [place] [address] PCP - General 04/01/16 03/15/20 Olga Villareal MD [address] [place] [address] Specialist Cardiology 07/18/21 Rafy Dawkins PA [address] [place] [address] Specialist Cardiology 07/18/21 05/13/24 Alana Quiñonez, JOVANNA [address] [place] [address] [facility] [place] [address] Cardiology 10/21/23 documented as of this encounter
--- OUTSIDE RECORDS SUMMARY | 2024-11-18 14:59 | XMS_ITS | Encounter Summary ---
Author Organization [facility] Address [address] [place] [address] Care Team Providers Care Business Continuity Planner Name Role Phone Rafael Angeles MD Primary Care Provider [phone] Olga Villareal MD Unavailable [phone] Rafy Dawkins Unavailable Alana Quiñonez NP Unavailable [phone] Encounter Details Date Type Department Care Team Description 07/29/2023 Home Health Certification Medical Records [address] [place] [address] Rafael Angeles MD [address] [place] [address] [phone] Social History Tobacco Use Types Packs/Day Years [...] on filedocumented in this encounter Care Teams Business Continuity Planner Relationship Specialty Start Date End Date Rafael Angeles MD [address] [place] [address] PCP - General Internal Medicine 03/16/20 Olga Villareal MD [address] [place] [address]456 Specialist Cardiology 07/18/21 Rafy Dawkins PA [address] [place] [address] 47972 Specialist Cardiology 07/18/21 05/13/24 Alana Quiñonez NP [address] [place] [address] [facility] [place] [address] Cardiology 10/21/23 documented as of this encounter
--- OUTSIDE RECORDS SUMMARY | 2024-11-18 14:59 | XMS_ITS | Encounter Summary ---
Author Organization [facility] Address [address] [place] [address] Care Team Providers Care Director Of Primary Care Name Role Phone Rafael Agneles MD Primary Care Provider Olga Villareal MD Unavailable [phone] Rafy Dawkins Unavailable Alana Quiñonez NP Unavailable [phone] Encounter Details Date Type Department Care Team Description 07/13/2020 Pt. Non Urgent Medical Question Pulmonology - [place] [address] [facility] [address] [place] [address] Randy Monsalve MD [address] [facility] [address] [place] [address] Social History Tobacco Use Types [...] or suspected to have Coronavirus / COVID-19? No / Unsure 07/14/2020 11:43 AM EST documented as of this encounter Progress Notes * Radha Parra 07/13/2020 9:36 AM ESTFrom: Garo Davis To: Randy Monsalve MD Sent: 07/13/2020 6:51 AM EST Subject: Inhaler I think I need a stronger inhaler. Tieing my shoes bent over out of breath. Walking fifteen stairs up 15 out of Breath. On Advair HFA 115 mcg and salmeterol 21 mcg 1941 Thank You Garo documented in this encounter Plan of Treatment Not on file documented as of this encounter Visit Diagnoses Not on filedocumented in this encounter Care Teams Director Of Primary Care Relationship Specialty Start Date End Date Rafael Angeles MD [address] [place] [address]41 PCP - General Internal Medicine 03/16/20 Olga Villareal MD [address] [place] [address] 71054 Specialist Cardiology 07/18/21 Rafy Dawkins PA [address] [place] [address]40 Specialist Cardiology 07/18/21 05/13/24 Alana Quiñonez NP [address] [place] [address] [facility] [place] [address] Cardiology 10/21/23 documented as of this encounter
--- OUTSIDE RECORDS SUMMARY | 2024-11-18 14:59 | XMS_ITS | Encounter Summary ---
Author Organization [facility] Address [address] [place] [address] Care Team Providers Care Geologic Technician Name Role Phone Rafael Angeles MD Primary Care Provider Olga Villareal MD Unavailable [phone] Rafy Dawkins Unavailable Alana Quiñonez NP Unavailable [phone] Reason for Referral * Non LIOR (Routine) - Closed Specialty Diagnoses / Procedures Referred By Contkaylene t Referred To Contact Gastroenterology Procedures REFERRAL TO GASTROENTEROLOGY Rafael Angeles MD [address] [place] [address] Nomi Dias MD [address] [place] [address] Referral ID Status Reason Start Date Expiration Date Visits Re quested Visits Authorized [id number] Closed 09/08/2023 09/07/2024 1 1 Reason for Visit * Reason Onset Date Comments REFERRAL 09/08/2023 Gastroenterology Encounter Details Date Type Department Care Team Description 09/08/2023 Telephone Adult Medicine [address] [address] Rafael Angeles MD [address] [place] [address] REFERRAL (Gastroenterology ) Social History Tobacco Use Types Packs/Day Years [...] Miscellaneous Notes * Telephone Encounter - Reema Arnaldo - 09/08/2023 3:31 PM EST Good Afternoon, Please review this patients new referral request. The referral has been pended. Please complete thefollowing: If approved> sign order If denied>please give instructions and route to your practice nursing pool. Practice nurse should inform referrals and the patient if denied. This patient is requesting to be seen by [facility] for a colonoscopy. Would you please reviewand sign the pended order? Thank you, Reema Referrals Department * Telephone Encounter - Natalie Forde - 09/08/2023 3:24 PM EST Patient received letter for a insurance referral for Colonoscopy/Endoscopy needed. Please advise. documented in this encounter Plan of Treatment Not on file documented as of this encounter Visit Diagnoses Not on filedocumented in this encounter Care Teams Geologic Technician Relationship Specialty Start Date End Date Rafael Angeles MD [address] [place] [address]187 PCP - General Internal Medicine 03/16/20 Olga Villareal MD [address] [place] [address] [phone] Specialist Cardiology 07/18/21 Rafy Dawkins PA [address] [place] [address]1111 Specialist Cardiology 07/18/21 05/13/24 Alana Quiñonez, JOVANNA [address] [place] [address] Dr [facility] [place] [address] Cardiology 10/21/23 documented as of this encounter
--- OUTSIDE RECORDS SUMMARY | 2024-11-18 14:59 | XMS_ITS | Encounter Summary ---
Author Organization [facility] Address [address] [place] [address] Care Team Providers Care Industrial Electrical Technician Name Role Phone Rafael Angeles MD Primary Care Provider Olga Villareal MD Unavailable [phone] Rafy Dawkins Unavailable Alana Quiñonez NP Unavailable [phone] Reason for Visit * Reason Onset Date Comments VNA Call 07/22/2023 Encounter Details Date Type Department Care Team Description 07/22/2023 Telephone Adult Medicine [address] [phone] Rafael Angeles MD [address] [place] [address] [phone] VNA Call Social History Tobacco Use Types Packs/Day Years [...] encounter Miscellaneous Notes * Telephone Encounter - Mirza NewmanPSbNSb - 07/22/2023 3:10 PM EST Vo given to Chandrika * Telephone Encounter - Sena Pereira PA-C - 07/22/2023 3:09 PM EST Okay to give verbal orderd * Telephone Encounter - Mirza NewmanP.NSb - 07/22/2023 2:25 PM EST [facility]NA requesting VO for nursing PT and OT Please review and advise for Dr. Angeles Last office visit 06/05/23 Please send response to the VNA pool P [phone] Thank you . * Telephone Encounter - Talia Denson - 07/22/2023 11:57 AM EST VNA CALL Which [facility]NA office is calling? [facility] Full name of caller: Solange The caller is Area r Is the caller at the patients home?: NO Reason for call: VO needed for PT, OT and group home starting on 07/29/23 Does caller need an urgent call back? NO Was CONTACT Telephone # obtained above?: YES Fax #: documented in this encounter Plan of Treatment Not on file documented as of this encounter Visit Diagnoses Not on filedocumented in this encounter Care Teams Industrial Electrical Technician Relationship Specialty Start Date End Date Rafael Angeles MD [address] [place] [address]82 PCP - General Internal Medicine 03/16/20 Olga Villareal MD [address] [place] [address]108 Specialist Cardiology 07/18/21 Rafy Dawkins PA [address] [place] [address]353 Specialist Cardiology 07/18/21 05/13/24 Alana Quiñonez NP [address] [place] [address] [facility] [place] [address] Cardiology 10/21/23 documented as of this encounter
--- OUTSIDE RECORDS SUMMARY | 2024-11-18 14:59 | XMS_ITS | Encounter Summary ---
Author Organization [facility] Address [address] [place] [address] Care Team Providers Care Roundhouse Firer/Fireman Name Role Phone Rafael Angeles MD Primary Care Provider Olga Villareal MD Unavailable [phone] Rafy Dawkins Unavailable Alana Quiñonez NP Unavailable [phone] Encounter Details Date Type Department Care Team Description 05/09/2022 Orders Only Radiology - [address] [phone] Rafael Angeles MD [address] [place] [address] [phone] Diabetes mellitus without complication (HCC) (Primary Dx) Social History Tobacco Use Types Packs/Day Years [...] suspected to have Coronavirus/COVID-19? No / Unsure 05/09/2022 1:40 PM EDT documented as of this encounter Plan of Treatment Not on file documented as of this encounter Results * CREATININE, BLOOD ASSAY (05/09/2022 2:35 PM EDT) CREAT 1.12 0.7 - 1.3 mg/dL 05/09/2022 6:39 PM EDT [facility] GLOMERULAR FILTRATION RATE > 60 05/09/2022 6:39 PM EDT [facility] Comment: If patient is -Romanian, multiply result by 1.21 Chronic Kidney Disease: < 60 ml/min/1.73 square meters Kidney Failure: < 15 ml/min/1.73 square meters 05/09/2022 2:35 PM EDT 05/09/2022 2:35 PM EDT Narrative [facility] - 05/09/2022 6:39 PM EDT Release to patient->Immediate Rafael Angeles MD LAB [facility] documented in this encounter Visit Diagnoses Diagnosis Diabetes mellitus without complication (HCC)- Primary Type II or unspecified type diabetes mellitus without mention of complication, not stated as uncontrolled Diabetes mellitus without complication (HCC) Type II or unspecified type diabetes mellitus without mention of complication, not stated as uncontrolled documented in this encounter Care Teams Roundhouse Firer/Fireman Relationship Specialty Start Date End Date Rafael Angeles MD [address] [place] [address] PCP - General Internal Medicine 03/16/20 Olga Villareal MD [address] [place] [address] 45322 Specialist Cardiology 07/18/21 Rafy Dawkins PA [address] [place] [address]16 Specialist Cardiology 07/18/21 05/13/24 Alana Quiñonez NP [address] [place] [address] Dr [facility] [place] [address] Cardiology 10/21/23 documented as of this encounter
--- OUTSIDE RECORDS SUMMARY | 2024-11-18 14:59 | XMS_ITS | Encounter Summary ---
Author Organization [facility] Address [address] [place] [address] Care Team Providers Care Venetian Blind Worker Name Role Phone Rafael Angeles MD Primary Care Provider [phone] Olga Villareal MD Unavailable [phone] Rafy Dawkins Unavailable Alana Quiñonez NP Unavailable [phone] Reason for Visit * Reason Comments E-prescribe Rx Request Encounter Details Date Type Department Care Team Description 04/06/2023 Refill Pulmonology - [place] [address] [facility] [address] [place] [address] Stan Redmond MD [address] [place] [address] E-prescribe Rx Request Social History Tobacco Use [...] suspected to have Coronavirus/COVID-19? No / Unsure 04/07/2023 2:07 PM EDT documented as of this encounter Plan of Treatment Not on file documented as of this encounter Visit Diagnoses Diagnosis Chronic obstructive pulmonary disease, unspecified COPD type (HCC) documented in this encounter Care Teams Venetian Blind Worker Relationship Specialty Start Date End Date Rafael Angeles MD [address] [place] [address]324 PCP - General Internal Medicine 03/16/20 Olga Villareal MD [address] [place] [address] [phone] Specialist Cardiology 07/18/21 Rafy Dawkins PA [address] [place] [address] 25844 Specialist Cardiology 07/18/21 05/13/24 Alana Quiñonez NP [address] [place] [address] [facility] [place] [address] Cardiology 10/21/23 documented as of this encounter
--- OUTSIDE RECORDS SUMMARY | 2024-11-18 14:59 | XMS_ITS | Encounter Summary ---
Author Organization [facility] Address [address] [place] [address] Care Team Providers Care Associate Professor Of Economics Name Role Phone Rafael Angeles MD Primary Care Provider [phone] Olga Villareal MD Unavailable [phone] Rafy Dawkins Unavailable Alana Quiñonez NP Unavailable [phone] Encounter Details Date Type Department Care Team Description 04/30/2023 [facility] Medical Records [address] [place] [address] Abstract, Provider Social History Tobacco Use Types [...] suspected to have Coronavirus/COVID-19? No / Unsure 04/28/2023 9:40 AM EDT documented as of this encounter Plan of Treatment Not on file documented as of this encounter Visit Diagnoses Not on filedocumented in this encounter Care Teams Associate Professor Of Economics Relationship Specialty Start Date End Date Rafael Angeles MD [address] [place] [address] [phone] PCP - General Internal Medicine 03/16/20 Olga Villareal MD [address] [place] [address] [phone] Specialist Cardiology 07/18/21 Rafy Dawkins PA [address] [place] [address] [phone] Specialist Cardiology 07/18/21 05/13/24 Alana Quiñonez NP [address] [place] [address] [facility] [place] [address] Cardiology 10/21/23 documented as of this encounter
--- OUTSIDE RECORDS SUMMARY | 2024-11-18 14:59 | XMS_ITS | Encounter Summary ---
Author Organization [facility] [facility] Address [address] [place] [address] Care Team Providers Care Centrifuge Separator Operator Name Role Phone Rafael Angeles MD Primary Care Provider [phone] Olga Villareal MD Unavailable [phone] Rafy Dawkins Unavailable Alana Quiñonez NP Unavailable [phone] Encounter Details Date Type Department Care Team Description 05/16/2022 Pt. Non Urgent Medical Question Adult Medicine [address] [phone] Rafael Angeles MD [address] [place] [address] [phone] Social History Tobacco Use Types Packs/Day Years [...] suspected to have Coronavirus/COVID-19? No / Unsure 05/17/2022 1:16 PM EDT documented as of this encounter Miscellaneous Notes * Telephone Encounter - Luisa Parra 05/16/2022 7:41 AM EDTFrom: Garo Davis To: Patrice Angeles Sent: 05/16/2022 7:40 AM EDT Subject: Losartan Should be 100 mg. Thank You Garo documented in this encounter Plan of Treatment Not on file documented as of this encounter Visit Diagnoses Not on filedocumented in this encounter Care Teams Centrifuge Separator Operator Relationship Specialty Start Date End Date Rafael Angeles MD [address] [place] [address] PCP - General Internal Medicine 03/16/20 Olga Villareal MD [address] [place] [address] [phone] Specialist Cardiology 07/18/21 Rafy Dawkins PA [address] [place] [address] Specialist Cardiology 07/18/21 05/13/24 Alana Quiñonez, JOVANNA [address] [place] [address] Dr Ad[facility] [place] [address] Cardiology 10/21/23 documented as of this encounter
--- OUTSIDE RECORDS SUMMARY | 2024-11-18 14:59 | XMS_ITS | Encounter Summary ---
Author Organization [employer] [facility] Address [address] [place] [address] Care Team Providers Care Distribution Specialist Name Role Phone Rafael Angeles MD Primary Care Provider Olga Villareal MD Unavailable [phone] Rafy Dawkins Unavailable Alana Quiñonez NP Unavailable Reason for Visit * Reason Onset Date Comments Call From Office 10/09/2023 [facility] Encounter Details Date Type Department Care Team Description 10/09/2023 Telephone Cardio PVC POC 154 [address] [facility] [address] [place], [place] [id number] Olga Villareal MD [address] [place] [address] [phone] Call From Office ([facility] ) Social History Tobacco Use Types Packs/Day [...] encounter Miscellaneous Notes * Telephone Encounter - Talia Sierra RN - 10/17/2023 1:50 PM EST Patient was made aware of AG and SH response and will keep his appt with AG and he will discuss further then. I asked him who his cardiac surgeon was and he stated Dr. Vaughn. I provided himwith the [facility] phone # to call to discuss preop dental clearance with that office.I have updated the appt to reflect it is general 6 mo f/u appt and removed preop information from the appt information as you requested. Again, patient was made aware. Patient is aware to discuss the following with cardiac surgery office per AG and SH. PRE OP for dental fillings x 2 on 11/13/23 at [facility] , Need letter stating if needs Pre ABX treatment or not and if cleared for dental procedure. . Hx S/P Tavr repair, Type B Aortic dissection and descending thoracic aortic rjzsnqir65/31/23. Dental rastafarian appt 11/13/23 2 fillings. * Telephone Encounter - Alana Quiñonez NP - 10/17/2023 1:01 PM EST His appointment with me should not be a pre op. The preop needs to be done by cardiac surgery as outline below. It appears the patient has an appointment with cardiac surgery in October which perhaps he should move up if he needs dental clearance. * Telephone Encounter - Talia Sierra RN - 10/09/2023 1:23 PM EST F.Y.I. Only. Booked pre op appt with you 10/21/23. Info regarding needing letter faxed to dental office in chart as well as added to appt notes for 10/21 including fax # * Telephone Encounter - Talia Sierra RN - 10/09/2023 1:18 PM EST Spoke with patient and booked appt 10/21/23 with Patrice Quiñonez NP. Mailed appt reminder. Chago was made aware of appt being at our [facility] office and was given address. * Telephone Encounter - Angelica Og - 10/09/2023 1:09 PM EST Patient is scheduled for 10/21/23 with Alana Quiñonez. * Telephone Encounter - Alnaa Quiñonez NP - 10/09/2023 12:41 PM EST Spoke with SH This needs to be done by cardiac surgery. We have not seen this patient in the officesince his procedure. Of note he is also noted to be due for a 6-month follow-up in October. * Telephone Encounter - Shani Petty - 10/09/2023 11:22 AM EST I called the dental office. I was informed pt needs written clearance to proceed with 2 dental restorations (fillings) and the letter would need to include if pt needs premed abx or not. Pt is s/p urgent TEVAR repair of type B aortic dissection and descending thoracic aortic aneurysm on 07/01/23. He follows with Dr. Pitt- cardiac surgeon and Dr. Tello- vascular. Stephania reached out to their offices as well in this regard. Please advise. * Telephone Encounter - Brunilda De Jesus - 10/09/2023 10:27 AM EST Stephania from [facility] is calling about patient having two restorations procedures on November 12, they are looking for cardiac clearance. Patient was last seen in April 2023. Stephania can be reached at [phone] and her fax number is [phone]. If patient needs a cardiac clearance appointment please call patient to schedule. documented in this encounter Plan of Treatment Not on file documented as of this encounter Visit Diagnoses Not on filedocumented in this encounter Care Teams Distribution Specialist Relationship Specialty Start Date End Date Rafael Angeles MD [address] [place] [address] [phone] PCP - General Internal Medicine 03/16/20 Olga Villareal MD [address] [place] [address] 42677 Specialist Cardiology 07/18/21 Rafy Dawkins PA [address] [place] [address] 51094 Specialist Cardiology 07/18/21 05/13/24 Alana Quiñonez NP [address] [place] [address] [facility] [place] [address] Cardiology 10/21/23 documented as of this encounter
--- OUTSIDE RECORDS SUMMARY | 2024-11-18 14:59 | XMS_ITS | Encounter Summary ---
Author Organization [facility] Address [address] [place] [address] Care Team Providers Care Machine Assembler Supervisor Name Role Phone Rafael Angeles MD Primary Care Provider [phone] Olga Villareal MD Unavailable [phone] Rafy Dawkins Unavailable Alana Quiñonez NP Unavailable [phone] Reason for Visit * Reason Onset Date Comments medication problems 10/25/2020 Encounter Details Date Type Department Care Team Description 10/25/2020 Telephone Adult Medicine [address] [phone] Rafael Angeles MD [address] [place] [address] [phone] medication problems Social History Tobacco Use Types [...] have Coronavirus / COVID-19? No / Unsure 10/18/2020 9:31 AM EST documented as of this encounter Miscellaneous Notes * Telephone Encounter - Pat Son - 10/25/2020 9:57 AM EST Please refill pharmacy closed encounter and need new script pended * Telephone Encounter - Rajinder Guillen - 10/25/2020 9:31 AM EST What is the name of the medication patient is having a problem with?: pantoprazole (PROTONIX) 40 MGtablet What is the problem?: pharmacy states prescription has been closed. Pharmacy needs a new script Is the patient calling about the problem? NO If the patient is not the caller who is? [facility] Is this a NEW medication?: NO How long has the patient been taking this medication? Who prescribed this medication for the patient? Rafael Angeles Who is patients PCP?: Rafael Angeles Payor: JOLIE ELMORE / Plan: JOLIE ELMORE $25/$40 REJI / Product Type: OTHER documented in this encounter Plan of Treatment Not on file documented as of this encounter Visit Diagnoses Not on filedocumented in this encounter Care Teams Machine Assembler Supervisor Relationship Specialty Start Date End Date Rafael Angeles MD [address] [place] [address] 95748 PCP - General Internal Medicine 03/16/20 Olga Villareal MD [address] [place] [address] 24806 Specialist Cardiology 07/18/21 Rafy Dawkins PA [address] [place] [address] 61018 Specialist Cardiology 07/18/21 05/13/24 Alana Quiñonez NP [address] [place] [address] [facility] [place] [address] Cardiology 10/21/23 documented as of this encounter
--- OUTSIDE RECORDS SUMMARY | 2024-11-18 14:59 | XMS_ITS | Encounter Summary ---
Author Organization [facility] Address [address] [place] [address] Care Team Providers Care Racker Octave Board Name Role Phone Rafael Angeles MD Primary Care Provider Olga Villareal MD Unavailable [phone] Rafy Dawkins Unavailable Alana Quiñonez NP Unavailable Reason for Visit * Reason Onset Date Comments Mychart Rx Refill 04/18/2022 Encounter Details Date Type Department Care Team Description 04/18/2022 Refill Adult Medicine [address] [phone] Rafael Angeles MD [address] [place] [address] [phone] Mychart Rx Refill Social History Tobacco Use [...] Telephone Encounter - Lauren Nye M.A. - 04/18/2022 8:42 AM EDT Lab Results Component Value Date URBENZO POSITIVE 10/12/2021 UROPIATES NONE DETECTED 10/12/2021 UROXYCODONE NONE DETECTED 10/12/2021 URBARBITUATE NONE DETECTED 10/12/2021 PAINAMPHETAM NONE DETECTED 10/12/2021 PAINCOCAINE NONE DETECTED 10/12/2021 PAINCANNABIN NONE DETECTED 10/12/2021 ZIABELLA 01/29/2022 w/Alana [place] IZABELLA w/PCP 01/17/2022 Next OV 06/18/2022 w/Ginny Turcios Next OV w/PCP 09/26/2022 03/25/2022 03/25/2022 1 Tramadol Hcl 50 Mg Tablet 28 28 An Cru [id number] Wal (4113) 0/0 5.00 MMET [place] 03/16/2022 03/15/2022 1 Zolpidem Tartrate 5 Mg Tablet 28 28 [place] [id number] Wal (4113) 0/0 0.25 [place]ET [place] 02/26/2022 02/25/2022 1 Clorazepate 7.5 Mg Tablet 56 28 An Cru [id number] Wal (4113) 0/0 1.00 LME [place] 02/15/2022 02/15/2022 1 Zolpidem Tartrate 5 Mg Tablet 28 28 An Cru [id number] Wal (4113) 0/0 0.25 [place] 02/08/2022 08/30/2021 1 Gabapentin 300 Mg Capsule 180 90 An Cru [id number] Wal (4113) 09/01 [place] 01/29/2022 01/29/2022 1 Tramadol Hcl 50 Mg Tablet 28 28 As Arjun [id number] Wal (4113) 0/0 5.00 [place] 01/18/2022 01/18/2022 1 Zolpidem Tartrate 5 Mg Tablet 28 28 An Cru [id number] Wal (4113) 0/0 0.25 [place] 01/17/2022 01/17/2022 1 Clorazepate 7.5 Mg Tablet 56 28 An Cru [id number] Wal (4113) 0/0 1.00 [place] 12/31/2021 12/31/2021 1 Tramadol Hcl 50 Mg Tablet 29 29 An Cru [id number] Wal (4113) 0/0 5.00 [place] 12/18/2021 12/10/2021 1 Zolpidem Tartrate 5 Mg Tablet 28 28 An Cru [id number] Wal (4113) 0/0 0.25 [place] 12/13/2021 12/13/2021 1 Clorazepate 7.5 Mg Tablet 56 28 As Kos [id number] Wal (4113) 0/0 1.00 [place] 11/20/2021 11/20/2021 1 Tramadol Hcl 50 Mg Tablet 28 28 An Cru [id number] Wal (4113) 0/0 5.00 [place] 11/19/2021 11/19/2021 1 Zolpidem Tartrate 5 Mg Tablet 28 28 An Cru [id number] Wal (4113) 0/0 0.25 [place] 11/05/2021 11/02/2021 1 Clorazepate 7.5 Mg Tablet 56 28 An Cru [id number] Wal (4113) 0/0 1.00 [place] 10/11/2021 10/11/2021 1 Zolpidem Tartrate 5 Mg Tablet 28 28 As Kos [id number] Wal (4113) 0/0 0.25 LME [place] documented in this encounter Plan of Treatment Not on file documented as of this encounter Visit Diagnoses Not on filedocumented in this encounter Care Teams Racker Octave Board Relationship Specialty Start Date End Date Rafael Angeles MD [address] [place] [address] [phone] PCP - General Internal Medicine 03/16/20 Olga Villareal MD [address] [place] [address] [phone] Specialist Cardiology 07/18/21 Rafy Dawkins PA [address] [place] [address] [phone] Specialist Cardiology 07/18/21 05/13/24 Alana Quiñonez NP [address] [place] [address] Dr [facility] [place] [address] Cardiology 10/21/23 documented as of this encounter
--- OUTSIDE RECORDS SUMMARY | 2024-11-18 14:59 | XMS_ITS | Encounter Summary ---
Author Organization [employer] [facility] Address [address] [place] [address] Care Team Providers Care Production Internship Name Role Phone Rafael Angeles MD Primary Care Provider Olga Villareal MD Unavailable [phone] Rafy Dawkins Unavailable Alana Quiñonez NP Unavailable Encounter Details Date Type Department Care Team Description 04/26/2022 Refill Pulmonology - [place] [address] [facility] [address] [place] [address] Natalia Winston APRN [address] [facility] [address] [place] [address] Social History Tobacco Use Types [...] (HCC) documented in this encounter Care Teams Production Internship Relationship Specialty Start Date End Date Rafael Angeles MD [address] [place] [address] 09595 PCP - General Internal Medicine 03/16/20 Olga Villareal MD [address] [place] [address] [phone] Specialist Cardiology 07/18/21 Rafy Dawkins PA [address] [place] [address] [phone] Specialist Cardiology 07/18/21 05/13/24 Alana Quiñonez NP [address] [place] [address] [facility] [place] [place] [address] Cardiology 10/21/23 documented as of this encounter
--- OUTSIDE RECORDS SUMMARY | 2024-11-18 14:59 | XMS_ITS | Encounter Summary ---
Author Organization [employer] [facility] Address [address] [place] [address] Care Team Providers Care Waitstaff Captain Name Role Phone Rafael Angeles MD Primary Care Provider Olga Villareal MD Unavailable [phone] Rafy Dawkins Unavailable Alana Quiñonez NP Unavailable [phone] Encounter Details Date Type Department Care Team Description 07/14/2020 Pt. Non Urgent Medical Question Pulmonology - [place] [address] [facility] [address] [place] [address] Randy Monsalve MD [address] [facility] [address] [place] [address] Social History Tobacco Use Types [...] AM EST documented as of this encounter Plan of Treatment Not on file documented as of this encounter Visit Diagnoses Not on filedocumented in this encounter Care Teams Waitstaff Captain Relationship Specialty Start Date End Date Rafael Angeles MD [address] [place] [address] [phone] PCP - General Internal Medicine 03/16/20 Olga Villareal MD [address] [place] [address] [phone] Specialist Cardiology 07/18/21 Rafy Dawkins PA [address] [place] [address] [phone] Specialist Cardiology 07/18/21 05/13/24 Alana Quiñonez NP [address] [place] [address] [facility] [place] [address] Cardiology 10/21/23 documented as of this encounter
--- OUTSIDE RECORDS SUMMARY | 2024-11-18 14:59 | XMS_ITS | Encounter Summary ---
Author Organization [facility] Address [address] [place] [address] Care Team Providers Care Structural Design Engineer Name Role Phone Zack Mora MD Primary Care Provider Unavail able Rafael Angeles MD Primary Care Provider [phone] Rafael Angeles MD Primary Care Provider Olga Villareal MD Unavailable [phone] Rafy Dawkins Unavailable Alana Quiñonez NP Unavailable [phone] Encounter Details Date Type Department Care Team Description 12/14/2015 Refill Adult Medicine [address] [phone] Zack Mora MD Social History Tobacco Use [...] encounter Miscellaneous Notes * Telephone Encounter - Lorenza Hinkle M.A. - 12/14/2015 8:37 AM EDTFrom: Garo Davis To: Zack Mora MD Sent: 12/14/2015 5:03 AM EDT Subject: Medication Renewal Request Original authorizing provider: Zack Mora MD Garo Gamblekyle would like a refill of the following medications: gabapentin (NEURONTIN) 100 MG capsule [Zack Mora MD] Preferred pharmacy: [id number] [address] [place]; LIN Comment: documented in this encounter Plan of Treatment Not on file documented as of this encounter Visit Diagnoses Not on filedocumented in this encounter Care Teams Structural Design Engineer Relationship Specialty Start Date End Date Zack Mora MD PCP - General Internal Medicine 05/09/14 03/31/16 Rafael Angeles MD [address] [place] [address] 31584 PCP - General Internal Medicine 03/16/20 Rafael Angeles MD [address] [place] [address] 20742 PCP - General 04/01/16 03/15/20 Olga Villareal MD [address] [place] [address] [phone] Specialist Cardiology 07/18/21 Rafy Dawkins PA [address] [place] [address] 92660 Specialist Cardiology 07/18/21 05/13/24 Alana Quiñonez, JOVANNA [address] [place] [address] [facility] [place] [address] Cardiology 10/21/23 documented as of this encounter
--- OUTSIDE RECORDS SUMMARY | 2024-11-18 14:59 | XMS_ITS | Encounter Summary ---
Author Organization [facility] Address [address] [place] [address] Care Team Providers Care Earthmoving Plant Operator Name Role Phone Rafael Angeles MD Primary Care Provider Rafael Angeles MD Primary Care Provider Olga Villareal MD Unavailable [phone] Rafy Dawkins Unavailable Alana Quiñonez NP Unavailable [phone] Encounter Details Date Type Department Care Team Description 02/27/2018 Metalworker Report Medical Records [address] [place] [address] Abstract, Provider Social History Tobacco Use Types [...] on filedocumented in this encounter Care Teams Earthmoving Plant Operator Relationship Specialty Start Date End Date Rafael Angeles MD [address] [place] [address] [phone] PCP - General Internal Medicine 03/16/20 Rafael Angeles MD [address] [place] [address] PCP - General 04/01/16 03/15/20 Olga Villareal MD [address] [place] [address] [phone] Specialist Cardiology 07/18/21 Rafy Dawkins PA [address] [place] [address] [phone] Specialist Cardiology 07/18/21 05/13/24 Alana Quiñonez NP [address] [place] [address] [facility] [address] Cardiology 10/21/23 documented as of this encounter
--- OUTSIDE RECORDS SUMMARY | 2024-11-18 14:59 | XMS_ITS | Encounter Summary ---
Author Organization [employer] [facility] Address [address] [place] [address] Care Team Providers Care Manager Program Management Name Role Phone Rafael Angeles MD Primary Care Provider [phone] Olga Villareal MD Unavailable [phone] Rafy Dawkins Unavailable Alana Quiñonez NP Unavailable [phone] Encounter Details Date Type Department Care Team Description 02/28/2022 Wrapper Opener Report Medical Records [address] [place] [phone] Abstract, Provider Social History Tobacco Use Types [...] on filedocumented in this encounter Care Teams Manager Program Management Relationship Specialty Start Date End Date Rafael Angeles MD [address] [place] [phone] PCP - General Internal Medicine 03/16/20 Olga Villareal MD [address] [place] [address] [phone] Specialist Cardiology 07/18/21 Rafy Dawkins PA [address] [place] [address] [phone] Specialist Cardiology 07/18/21 05/13/24 Alana Quiñonez NP [address] [place] [address] [facility] [place] [address] Cardiology 10/21/23 documented as of this encounter
--- OUTSIDE RECORDS SUMMARY | 2024-11-18 14:59 | XMS_ITS | Encounter Summary ---
Author Organization [employer] [facility] Address [address] [place] [address] Care Team Providers Care Body Care Manager Name Role Phone Rafael Angeles MD Primary Care Provider [phone] Olga Villareal MD Unavailable [phone] Rafy Dawkins Unavailable Alana Quiñonez NP Unavailable [phone] Encounter Details Date Type Department Care Team Description 06/22/2023 [facility] Medical Records [address] [place] [address] 23968 Social History Tobacco Use Types Packs/Day Years [...] suspected to have Coronavirus/COVID-19? No / Unsure 06/05/2023 8:07 AM EDT documented as of this encounter Plan of Treatment Not on file documented as of this encounter Procedures Procedure Name Priority Date/Time Associated Diagnosis Comments OUTSIDE LAB Routine 07/11/2023 OUTSIDE VASCULAR STUDY Routine 07/07/[address] Routine 07/01/[address] Routine 06/24/2023 OUTSIDE EKG Routine 06/23/2023 OUTSIDE ECHO Routine 06/22/2023 OUTSIDE ULTRASOUND Routine 06/22/[address] Routine 06/22/2023 documented in this encounter Results * OUTSIDE LAB (07/11/2023) Provider Default LAB * OUTSIDE VASCULAR STUDY (07/07/2023) Provider Default CARDIOLOGY * OUTSIDE CT (07/01/2023) Provider Default RADIOLOGY * OUTSIDE CT (06/24/2023) Provider Default RADIOLOGY * OUTSIDE EKG (06/23/2023) Provider Default CARDIOLOGY * OUTSIDE CT (06/22/2023) Provider Default RADIOLOGY * OUTSIDE ULTRASOUND (06/22/2023) Provider Default RADIOLOGY * OUTSIDE ECHO (06/22/2023) Provider Default CARDIOLOGY documented in this encounter Visit Diagnoses Not on filedocumented in this encounter Care Teams Body Care Manager Relationship Specialty Start Date End Date Rafael Angeles MD [address] [place] [address] 39442 PCP - General Internal Medicine 03/16/20 Olga Villareal MD [address] [place] [address] 07211 Specialist Cardiology 07/18/21 Rafy Dawkins PA [address] [place] [address] 10618 Specialist Cardiology 07/18/21 05/13/24 Alana Quiñonez NP [address] [place] [address] [facility] [place] [address] Cardiology 10/21/23 documented as of this encounter
--- OUTSIDE RECORDS SUMMARY | 2024-11-18 14:59 | XMS_ITS | Encounter Summary ---
Author Organization [employer] [facility] Address [address] [place] [address] Care Team Providers Care Medical Education Manager Name Role Phone Rafael Angeles MD Primary Care Provider [phone] Olga Villareal MD Unavailable [phone] Rafy Dawkins Unavailable Alana Quiñonez NP Unavailable [phone] Encounter Details Date Type Department Care Team Description 07/03/2023 Orders Only Medical Records [address] [place] [address] [facility] Social History Tobacco Use Types Packs/Day Years [...] Date/Time Associated Diagnosis Comments OUTSIDE CT Routine 05/29/2023 documented in this encounter Results * OUTSIDE CT (05/29/2023) Narrative Authorizing Provider Result [facility] RADIOLOGY documented in this encounter Visit Diagnoses Not on filedocumented in this encounter Care Teams Medical Education Manager Relationship Specialty Start Date End Date Rafael Angeles MD [address] [place] [address] [phone] PCP - General Internal Medicine 03/16/20 Olga Villareal MD [address] [place] [address] 01020 Specialist Cardiology 07/18/21 Rafy Dawkins PA [address] [place] [address] 01020 Specialist Cardiology 07/18/21 05/13/24 Alana Quiñonez NP [address] [place] [address] Dr [facility] [place] [address] Cardiology 10/21/23 documented as of this encounter
--- OUTSIDE RECORDS SUMMARY | 2024-11-18 14:59 | XMS_ITS | Encounter Summary ---
Author Organization [employer] [facility] Address [address] [place] [address] Care Team Providers Care Continuous Improvement Black Belt Name Role Phone Rafael Angeles MD Primary Care Provider [phone] Olga Villareal MD Unavailable [phone] Rafy Dawkins Unavailable Alana Quiñonez NP Unavailable [phone] Encounter Details Date Type Department Care Team Description 07/02/2023 Hospital Medical Records [address] [place] [address] Lyle Pitt MD Social History Tobacco Use [...] on filedocumented in this encounter Care Teams Continuous Improvement Black Belt Relationship Specialty Start Date End Date Rafael Angeles MD [address] [place] [address] 08889 PCP - General Internal Medicine 03/16/20 Olga Villareal MD [address] [place] [address] [phone] Specialist Cardiology 07/18/21 Rafy Dawkins PA [address] [place] [address] [phone] Specialist Cardiology 07/18/21 05/13/24 Alana Quiñonez NP [address] [place] [address] [facility] [place] [address] Cardiology 10/21/23 documented as of this encounter
--- OUTSIDE RECORDS SUMMARY | 2024-11-18 14:59 | XMS_ITS | Encounter Summary ---
Author Organization [facility] Address [address] [place] [address] Care Team Providers Care Electrician Apprentice Name Role Phone Rafael Angeles MD Primary Care Provider Olga Villareal MD Unavailable [phone] Rafy Dawkins Unavailable Alana Quiñonez NP Unavailable [phone] Encounter Details Date Type Department Care Team Description 10/18/2020 Telephone Adult Medicine [address] [phone] Alana Grant PA Social History Tobacco Use Types Packs/Day Years [...] Miscellaneous Notes * Telephone Encounter - Alana Waldron PA-C - 10/18/2020 2:58 PM EST Patient requesting Ativan. He is already on Celexa 40 mg as well in addition to his clorazepate and ambien. Celexa increased from 20 mg to 40 mg. His anxiety is uncontrolled. He is also on tramadol for chronic pain. I advised patient id talking with PCP regarding this... documented in this encounter Plan of Treatment Not on file documented as of this encounter Visit Diagnoses Not on filedocumented in this encounter Care Teams Electrician Apprentice Relationship Specialty Start Date End Date Rafael Angeles MD [address] [place] [address] PCP - General Internal Medicine 03/16/20 Olga Villareal MD [address] [place] [address] Specialist Cardiology 07/18/21 Rafy Dawkins PA [address] [place] [address] Specialist Cardiology 07/18/21 05/13/24 Alana Quiñonez, JOVANNA [address] [place] [address] [facility] [place] [address] Cardiology 10/21/23 documented as of this encounter
--- OUTSIDE RECORDS SUMMARY | 2024-11-18 14:59 | XMS_ITS | Encounter Summary ---
Author Organization [employer] [facility] Address [address] [place] [address] Care Team Providers Care Parts Counter Salesperson Name Role Phone Rafael Angeles MD Primary Care Provider Olga Villareal MD Unavailable [phone] Rafy Dawkins Unavailable Alana Quiñonez NP Unavailable [phone] Reason for Visit * Reason Onset Date Comments other 05/15/2022 Vascular appoint ment concerns Encounter Details Date Type Department Care Team Description 05/15/2022 Telephone Cardio PVC POC [address] [facility] [address] [place] [address] Rafy Dawkins PA [address] [place] [address] [phone] other (Vascular appointment concerns ) Social History Tobacco Use Types Packs/Day [...] encounter Miscellaneous Notes * Telephone Encounter - Tracey Perez - 05/16/2022 11:41 AM EDT Patient called the office to request an out of network referral for this provider. Please review * Telephone Encounter - Talia Sierra RN - 05/16/2022 10:10 AM EDT Noted. * Telephone Encounter - Olga Villareal MD - 05/16/2022 9:58 AM EDT For the record, his insurance is being absolutely ridiculous. Poor Garo. * Telephone Encounter - Talia Sierra RN - 05/16/2022 9:33 AM EDT I called patient and patient states below task for his call is incorrect. He called to let johanna he is going to call his insurance to see what he needs to continue to get all future imaging done at [facility] to continue to have reviewed by Dr. Pitt and to be able to be seen by Dr. Brenner. Per patient, his insurance is not allowing him to be seen by Dr. Brenner and he has an appt with Dr. Harvey at [address] [facility] . Patient would prefer to continue with [facility] for imaging and with S[facility] Arguello. He will update what he finds out regarding where he is allowed to go for his care/vascular provider * Telephone Encounter - Khadijah Garcia - 05/15/2022 4:00 PM EDT Patient states he would like to know if he should go to Vascular appointment to wait til next Ct Scan appointment in November 2022? Patient could be reached at [phone] documented in this encounter Plan of Treatment Not on file documented as of this encounter Visit Diagnoses Not on filedocumented in this encounter Care Teams Parts Counter Salesperson Relationship Specialty Start Date End Date Rafael Angeles MD [address] [place] [phone] PCP - General Internal Medicine 03/16/20 Olga Villareal MD [address] [place] [address] [phone] Specialist Cardiology 07/18/21 Rafy Dawkins PA [address] [place] [address] [phone] Specialist Cardiology 07/18/21 05/13/24 Alana Quiñonez NP [address] [place] [address] Dr Ad[facility] [place] [address] Cardiology 10/21/23 documented as of this encounter
--- OUTSIDE RECORDS SUMMARY | 2024-11-18 15:00 | XMS_ITS | Encounter Summary ---
Author Organization [employer] [facility] [place] [address] Care Team Providers Care Cattle Driver Name Role Phone Rafael Angeles MD Primary Care Provider [phone] Reason for Referral * Consultation (Routine) - Authorized Specialty Diagnoses / Procedures Referred By Wanda olson Referred To Contact Cardiology Diagnoses Chest pain, unspecified type Radha Rm PA [address] [place] [address] Phone: tel: fax: Olga Villareal MD [address] [place] [address] Phone: tel: fax: Referral ID Status Reason Start Date Expiration Date Visits Requested Visits Authorized [id number] Authorized Specialty Services Required 11/12/2024 11/12/2025 6 6 * Cardiac Stress Testing (Routine) - Pending Review Specialty Diagnoses / Procedures Referred By Contkaylene t Referred To Contact Cardiology Diagnoses Chest pain, unspecified type Procedures Nuclear stress test with myocardial perfusion TX MYOCARDIAL PERFUSION IMAGING TOMOGRAPHIC MULTI STUDIES AT REST OR STRESS TX MYOCARDIAL PERFUSION IMAGING TOMOGRAPHIC SINGLE STUDY AT REST OR STRESS TX CARDIOVASCULAR STRESS TEST GLOBAL TX CV TMST/BIKE MAX/SUBMAX CONTINUOUS ECG MON/PHARM STRESS SUPVSR ONLY TX CV STRESS TEST/BIKE CONT ECG MON/PHARM STRESS INTERP & REPORT ONLY TX TEST STRESS CARDIOVASCULAR TRACING ONLY Radha Rm PA [address] [place] [address] Phone: tel: fax: [facility] Referral ID Status Reason Start Date Expiration Date V isits Requested Visits Authorized [id number] Pending Review 11/11/2024 11/11/2025 3 3 * Consultation (Routine) - Authorized Specialty Diagnoses / Procedures Referred By Wanda t Referred To Contact Gastroenterology Diagnoses Gastroesophageal reflux disease, unspecified whether esophagitis present Epigastric abdominal pain Radha Rm PA [address] [place] [address] Phone: tel: fax: Alvaro Dias MD [address] [place] [address] Phone: tel: fax: Referral ID Status Reason Start Date Expiration Date Visits Requested Visits Authorized [id number] Authorized Specialty Services Required 11/11/2024 11/11/2025 1 1 Reason for Visit * Reason Comments Follow-up ED Encounter Details Date Type Department Care Team (Late st Contact Info) Description 11/11/2024 11:00 AM EDT Office Visit Adult Medicine [address] [phone] Radha Rm PA [address] [place] [address] Gastroesophageal reflux disease, unspecified whether esophagitis present (Primary Dx); Epigastric abdominal pain; Chest pain, unspecified type; Renal mass Social History Tobacco Use Types Packs/Day Years [...] on file documented as of this encounter Last Filed Vital Signs Vital Sign Reading [...] Mass Index 26.93 11/11/2024 10:53 AM EDT documented in this encounter Ordered Prescriptions Prescription Sig Dispense Quantity Refills Last Filled Start Date End Date pantoprazole (PROTONIX) 40 mg EC tablet Take 1 tablet (40 mg total) by mouth 2 (two) times a day. Do not crush, chew, or split. 180 each 1 11/11/2024 documented in this encounter Progress Notes * Malorie Gan MA - 11/11/2024 11:00 AM EDTAddended by: MALORIE GAN on: 11/12/2024 01:31 PM Modules accepted: Orders * MERY Oh - 11/11/2024 11:00 AM EDT CHIEF COMPLAINT: Follow-up (ED) IDENTIFIER: Garo Davis is a 84 y.o. old male. HPI: Patient is a 84-year-old male presents to the office today for ER follow-up. The patient was seen at [facility] 11/09/2024 for evaluation of abdominal pain located around his epigastric and periumbilical area. Patient reported that symptoms are most severe in the morning and generally resolved as the day went on. Lab workup in the ER was unremarkable. CT angio chest and abdomen were ordered due to his history and for rule out of worsening endoleak or new dissection. Results revealed no aortic dissection or acute aortic pathology, s/p repair of the ascending aorta, the repair is intact and without acute complication, s/p endovascular repair of the descending thoracic aorta, stable small type IB endol eak, heterogenous masslike enhancement encompassing the anterior midpole of the right kidney which could represent pyelonephritis or chronic changes resulting from previously reported subcapsular hematoma. Patient's symptoms were contributed to GERD/gastritis. He was advised to continue with his current regimen with addition of Carafate. Today patient states that his pain continues. He further explains that he has had epigastric abdominal pain for years. He denies experiencing nausea or vomiting. The pain is burning in nature. Patient believes he has been taking omeprazole 20 mg daily. He also has been taking famotidine 20 mg twicedaily. Patient has not picked up Carafate prescription that was sent from ER. He avoids use of NSAIDs. Patient thinks he may have had endoscopy in the past, I do not see [facility]. There was previously concern for possible contraindications due to his cardiovascularhistory. Patient was last seen by gastroenterology 06/2024. Patient does follow with nephrology, Dr. Ellison. He was last seen 07/2024. He did have ultrasound 06/2024 showing no identifiable renal hematoma. Patient with history of hypertension, hyperlipidemia, CAD, atypical chest pain and thoracic aortic aneurysm s/p emergent TEVAR. Today patient states he had 3 episodes of chest pain yesterday as well as one episode this morning while he was having breakfast. The pain was localized to the left side of his chest. It was nonexertional and lasted for a few seconds at a time. Patient states it was sharp in nature and caused him to grunt secondary to the pain. Patient further notes that he has had this chest pain for years and it occurs nearly on a weekly basis. He denies radiation of pain into his left upper extremity, neck or jaw. Patient does follow with cardiology, Dr. Villareal and Dr. Pitt. He does have nitroglycerin, states he last used it about 2 months ago. Patient had echocardiogram in 2022. Report shows limited study, EF and wall motion were not assessed. He had nuclear stress test in 2020 which was normal. He currently denies chest pain. ROS: GENERAL: No malaise, significant weight loss or fever RESPIRATORY: No cough, wheezing or shortness of breath CARDIOVASCULAR: see HPI GI: see HPI : No dysuria, oliguria, polyuria, hematuria, flank pain NEURO: No persistent headache, syncope, seizures, weakness or numbness PAST MEDICAL HISTORY: Patient Active Problem List Diagnosis Date Noted Lung mass 07/20/2024 Angina decubitus ([facility]) 08/01/2023 Ataxia 08/01/2023 Benign essential hypertension 08/01/2023 Depressive disorder 08/01/2023 Lung mass 08/01/2023 AAA (abdominal aortic aneurysm) ([facility]) 04/28/2023 Abdominal aortic aneurysm (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) 11/10/2015 ANTONY and COPD overlap syndrome ([facility]) 06/06/2015 Thoracic aortic aneurysm ([facility]) 02/06/2015 Hyperlipidemia 06/23/2014 Anxiety 05/27/2014 CTS (carpal tunnel syndrome) 05/27/2014 DJD (degenerative joint disease) 05/27/2014 Erectile dysfunction 05/27/2014 GERD (gastroesophageal reflux disease) 05/27/2014 Gout 05/27/2014 Hypertension 05/27/2014 Insomnia 05/27/2014 Seizure ([facility]) 05/27/2014 Trigeminal neuralgia 05/27/2014 Past Surgical History: Procedure Laterality Date APPENDECTOMY 1955 PROCEDURE: TX APPENDECTOMY CARPAL TUNNEL RELEASE 1995 PROCEDURE: HISTORICAL CARPAL TUNNEL REL CATARACT EXTRACTION PROCEDURE: HISTORICAL CATARACT REMOVAL COLONOSCOPY 01/21/14 Laquita (Gerard) PROCEDURE: TX COLONOSCOPY STOMA W/RMVL ROBYN POLYP/OTH LES SNARE; COMMENT: small rectal adenoma and tics; repeat in 5 yrs ESOPHAGOGASTRODUODENOSCOPY 01/19/15 PROCEDURE: TX ESOPHAGOGASTRODUODENOSCOPY TRANSORAL DIAGNOSTIC; COMMENT: Biopsies negative for Davis's. OTHER SURGICAL HISTORY PROCEDURE: HISTORICAL UNSPECIFIED SURGERY; COMMENT: septoplasty OTHER SURGICAL HISTORY 01/13/2018 PROCEDURE: TX RPLCMT PROST AORTIC VALVE OPEN XCP HOMOGRF/STENT TONSILLECTOMY 1945 PROCEDURE: HISTORICAL TONSILLECTOMY SOCIAL HISTORY: Social History Tobacco Use Smoking status: Former Current packs/day: 0.00 Average packs/day: 1 pack/day for 28.5 years (28.5 ttl pk-yrs) Types: Cigarettes Start date: 1956 Quit date: 09/01/1985 Years since quittin.2 Smokeless tobacco: Never Substance Use Topics Alcohol use: Yes FAMILY HISTORY: Family History Problem Relation Name Age of Onset Heart attack Mother 45 Heart attack Father Cirrhosis Father 53, alcoholism Other (Other: mva) Brother 45 Other (Other: agent orange) Brother Coronary artery disease Maternal Grandmother Coronary artery disease Maternal Grandfather Family Status Relation Name Status Mother Father Brother (Not Specified) Brother (Not Specified) MGM (Not Specified) MGF (Not Specified) No partnership data on file MEDICATIONS DISCONTINUED/REORDERED: Medications Discontinued During This Encounter Medication Reason pantoprazole (PROTONIX) 20 mg EC tablet omeprazole (PriLOSEC) [address] capsule ACTIVE MEDICATIONS: Outpatient Medications Marked as Taking for the 11/11/24 encounter (Office Visit) with MERY Oh Medication Sig Dispense Refill acetaminophen (TYLENOL) 325 mg tablet Take 2 tablets (650 mg total) by mouth. albuterol HFA (PROAIR HFA ; PROVENTIL HFA ; VENTOLIN HFA) 90 mcg/actuation inhaler INHALE 2 PUFFS INTO THE LUNGS EVERY 6 HOURS NEEDED FOR COUGH OR WHEEZING OR SHORTNESS OF BREATH 8.5 g 11 amoxicillin (AMOXIL) 500 mg tablet TAKE 4 TABLET BY MOUTH 1 HOUR PRIOR TO DENTAL VISIT aspirin 81 mg EC tablet Take 1 tablet (81 mg total) by mouth. atorvastatin (LIPITOR) 40 mg tablet Take 1 tablet (40 mg total) by mouth 1 (one) time each day. citalopram (CeleXA) 40 mg tablet Take 1 tablet (40 mg total) by mouth 1 (one) time each day. clorazepate (TRANXENE) 7.5 mg tablet Take 1 tablet (7.5 mg total) by mouth 2 (two) times a day. 56 tablet 0 diclofenac (VOLTAREN) 1 % topical gel Apply 4 g topically. diclofenac (VOLTAREN) 1 % topical gel Apply 4 g topically 4 times daily as needed (joint pain). docusate sodium (COLACE) 100 mg capsule Take 1 capsule (100 mg total) by mouth. facial mask (PROCEDURAL FACE MASKS MISC) 1 Each by Does not apply route at bedtime. Please provide patient with oxygen humifification device to use with oxygen at night. famotidine (PEPCID) 20 mg tablet Take 1 tablet (20 mg total) by mouth 2 (two) times a day. kzfnboatccs-bbpsyzdhghkr-rqkmlvryqp (Trelegy Ellipta) 100-62.5-25 mcg inhaler INHALE 1 PUFF INTO THE LUNGS DAILY 60 each 11 gabapentin (NEURONTIN) 100 mg capsule Take 1-2 Capsules by mouth 2 times daily. Lyla-Lanta 200-200-20 mg/5 mL suspension TAKE 15 ML BY MOUTH 4 TIMES DAILY NEEDED isosorbide mononitrate (IMDUR) 60 mg 24 hr tablet Take 2 tablets (120 mg total) by mouth. labetaloL (NORMODYNE) 100 mg tablet TAKE 1 TABLET BY MOUTH TWICE DAILY 180 tablet 1 latanoprost (XALATAN) 0.005 % ophthalmic solution Administer 1 drop into both eyes. losartan (COZAAR) 50 mg tablet nitroglycerin (NITROSTAT) 0.[address] 1 TABLET UNDER THE TONGUE EVERY 5 MINUTES NEEDED FOR CHEST PAIN 25 tablet 0 oxycodone HCl (OXYCODONE ORAL) Take 5 mg by mouth. Oxygen Therapy (O2) gas Inhale into the lungs. Pt uses oxygen at night 2.5 L sertraline (ZOLOFT) 50 mg tablet Take 1 tablet by mouth qhs tamsulosin (FLOMAX) 0.4 mg 24 hr capsule Take 2 capsules (0.8 mg total) by mouth 1 (one) time each day. Capsules should be taken 30 minutes following the same meal each day. 180 capsule 1 zolpidem (AMBIEN) 5 mg tablet TAKE 1 TABLET(5 MG) BY MOUTH AT BEDTIME NEEDED FOR SLEEP. MAX DAILY AMOUNT: 5 MG 28 tablet 0 [DISCONTINUED] omeprazole (PriLOSEC) [address] capsule Take 1 capsule (40 mg total) by mouth 1 (one)time each day. [DISCONTINUED] pantoprazole (PROTONIX) 20 mg EC tablet TK 1 T PO D ALLERGIES: Allergies Allergen Reactions Morphine Dry heaves Peanut Nausea And Vomiting Tallow Abdominal pain PHYSICAL EXAM: Visit Vitals BP 120/60 (BP Location: Left arm, Patient Position: Sitting, BP Cuff Size: Adult long) Pulse 78 Temp 36.3 ??C (97.3 ??F) (Temporal) Ht 1.727 m (67.99 ) Wt 80.3 kg (177 lb 1.6 oz) SpO2 92% BMI 26.93 kg/m?? Smoking Status Former BSA 1.94 m?? APPEARANCE: Alert and in no acute distress HEART: RRR with normal S1 and S2, no murmurs, no gallops LUNG: clear to auscultation, no wheezing, rales, or rhonchi. Able to talk in full complete sentences NEURO: Awake, alert and oriented x 3. No focal neurological deficits LABS: Lab Results Component Value Date GLUCOSE 101 (H) 09/10/2024 CALCIUM 8.8 09/10/2024 NA 138 09/10/2024 K 4.1 09/10/2024 CO2 26 09/10/2024 CL 105 09/10/2024 BUN 27 (H) 09/10/2024 CREATININE 1.16 09/10/2024 IMPRESSION: 1. Gastroesophageal reflux disease, unspecified whether esophagitis present 2. Epigastric abdominal pain 3. Chest pain, unspecified type 4. Renal mass PLAN: Patient presents for ER follow-up for epigastric abdominal pain. His workup at ER was unremarkable.Symptoms were contributed to GERD/gastritis. Informed patient he should be taking pantoprazole 40 mg twice daily. At this time we will discontinue the omeprazole and send a new prescription. Advised patient to take famotidine 20 mg twice daily in addition to this. He may also supplement with Carafate. Will update referral to gastroenterology for consideration of possible endoscopy or further treatment recommendation. Encouraged patient to continue avoidance of NSAIDs. CTA chest/abdomen revealedheterogenous masslike enhancement of anterior midpole right kidney. Question of whether this may berelated to has hematoma. Ultrasound from 06/2024 showed no identifiable renal hematoma. Patient agrees to follow-up with nephrology. Patient with 3 episodes of short-lived chest pain yesterday as well as one episode this morning while having breakfast. Symptoms were sharp in nature and caused him to grunt. The pain was localized to the left side of the chest, did not radiate. EKG completed in office today shows no significant change from EKG completed 05/2022. Will update stress test, order placed. Will provide referral to cardiology as well due to his cardiac history. All questions and concerns were addressed. Garo Davis verbalizes understanding and agrees with this treatment plan. Patient was reminded to call or return to the office if any new or existing problems arise. Orders Placed This Encounter Procedures Ambulatory referral to Gastroenterology Ambulatory referral to Cardiology Nuclear stress test with myocardial perfusion AMB REFERRAL TO GASTROENTEROLOGY AMB REFERRAL TO CARDIOLOGY NM STRESS TEST WITH MYOCARDIAL PERFUSION MERY Oh on 11/11/2024 at 9:10 PM EDT Today's documentation was made using voice recognition software.This note may contain grammatical errors secondary to this software. documented in this encounter Plan of Treatment Upcoming Encounters Date Type Department Care Team (Late st Contact Info) Description 11/22/2024 8:50 AM EDT Office Visit [facility] - [facility] [address] [facility] [address] [place] [address] Olga Villareal MD [address] [place] [address] 11/23/2024 1:40 PM EDT Consult Gastroenterology - [place] 175 [facility] 175 [facility] [address] [place] [address] [place] Zamarripa NP [address] [facility] [address] [place] [address] 11/30/2024 11:30 AM EDT Office Visit Adult Medicine [facility] [address] [place] [phone] Rafael Angeles MD [address] [place] [address] 12/07/2024 12:00 PM EDT Ancillary Procedure [facility] [address] [phone] 02/25/2025 11:00 AM EDT Office Visit Adult [facility] [address] [place] [address] Rafael Angeles MD [address] [place] [address] 05/03/2025 2:00 PM EDT [facility] [address] [phone] Natalia Winston NP [address] [address] 05/23/2025 11:00 AM EDT Ancillary Procedure [facility] Cardiology [facility] - [facility] [address] [phone] Scheduled Orders Name Type Priority Associated Diagnoses Orde r Schedule Nuclear stress test with myocardial perfusion Cardiac Nuclear Medicine Routine Chest pain, unspecified type 1 Occurrences starting 11/11/2024 until 11/11/2025 ECG 12 lead ECG Routine Chest pain, unspecified type Ordered: 11/12/2024 Scheduled Referrals Name Type Priority Associated Diagnoses Order Schedule Ambulatory referral to Gastroenterology Outpatient Referral Routine Gastroesophageal reflux disease, unspecified whether esophagitis present Epigastric abdominal pain 1 Occurrences starting 11/11/2024 until 11/11/2025 Ambulatory referral to Cardiology Outpatient Referral Routine Chest pain, unspecified type 1 Occurrences starting 11/11/2024 until 11/11/2025 documented as of this encounter Visit Diagnoses Diagnosis Gastroesophageal reflux disease, unspecified whether esophagitis present- Primary Epigastric abdominal pain Abdominal pain, epigastric Chest pain, unspecified type Renal mass Unspecified disorder of kidney and ureter documented in this encounter Discontinued Medications Medication Sig Discontinue Reason Start Date End Da te pantoprazole (PROTONIX) 20 mg EC tablet TK 1 T PO D 08/17/2019 11/11/2024 omeprazole (PriLOSEC) [address] capsule Take 1 capsule (40 mg total) by mouth 1 (one) time each day. 09/11/2023 11/11/2024 documented as of this encounter Care Teams Cattle Driver Relationship Specialty Start Date End Date Rafael Angeles MD [address] [place] [address] PCP - General Internal Medicine 05/07/14 documented as of this encounter
--- OUTSIDE RECORDS SUMMARY | 2024-11-18 15:00 | XMS_ITS | Encounter Summary ---
Author Organization [place] [address] Care Team Providers Care Senior Warehouse Clerk Name Role Phone Rafael Angeles MD Primary Care Provider [phone] Reason for Visit * Reason Onset Date Comments Hospitalization/ER 11/10/2024 Encounter Details Date Type Department Care Team ([facility] st Contact Info) Description 11/10/2024 Telephone Adult Medicine [address] [address] Rafael Angeles MD [address] [place] [address] Hospitalization/ER Social History Tobacco Use Types Packs/Day Years [...] as of this encounter Progress Notes * Kemi Jesus RN - 11/10/2024 10:29 AM EDT Call to pt. Spoke to pt He was seen at [facility] yesterday 11/09/[address] scan done, Spotted a cyst on right kidney , and blood r kidney, He went to [facility] er, c/o acid reflux and painful For past week ? Needing endoscopy , Last endoscopy was in 2019 Last seen by gastro was sometime ago. He takes, med for acid reflux States he takeas several meds for the acid reflux , no relief, Current Outpatient Medications Medication Sig Dispense Refill acetaminophen (TYLENOL) 325 [...] by mouth 2 (two) times a day. xgmobhldqgp-bxybqixydnov-poiepryitn (Trelegy Ellipta) 100-62.5-25 mcg inhaler INHALE 1 [...] NEEDED FOR CHEST PAIN 25 tablet 0 omeprazole (PriLOSEC) [address] capsule Take 1 capsule (40 mg total) by mouth 1 (one) time each day. oxycodone HCl (OXYCODONE ORAL) Take 5 mg by mouth. Oxygen Therapy (O2) gas Inhale into the lungs. Pt uses oxygen at night 2.5 L pantoprazole (PROTONIX) 20 mg EC tablet TK 1 T PO D sertraline (ZOLOFT) 50 mg tablet Take 1 [...] DAILY AMOUNT: 5 MG 28 tablet 0 No current facility-administered medications for this visit. Er f/u appt booked pt agreed to time and date. * Marina Shaw - 11/10/2024 10:21 AM EDT Hospital/ER follow up appointment needed Hospital patient was treated at: [facility], [facility] Was this only an ER visit or was the patient admitted to the hospital? ER Visit only Date of visit if ER visit only: 11/09/24 If patient was admitted what was the date of discharge? Reason/diagnosis for visit or stay: ? Of cyst on kidney When was the patient told to follow up? Caden, patient wants to f/u soon. Still having some stomach issues, spoke to triage yesterday. Was visit or stay related to an injury? If yes, what was the date of injury (DOI)? No If yes, was the injury due to: Not 3rd green party related documented in this encounter Plan of Treatment Upcoming Encounters Date Type Department Care Team (Late st Contact Info) Description 11/22/2024 8:50 AM EDT Office Visit [facility] 154 300 [facility] 154 [place] [address] Olga Villareal MD 300 [place] [address] 11/23/2024 1:40 PM EDT Consult Gastroenterology - [place] [address] 200 [place] [phone] [place] Zamarripa NP 175 [facility] 200 [place] [address] 11/30/2024 11:30 AM EDT Office Visit Adult Medicine [facility] [address] [place] [address] Rafael Angeles MD 444 [place] [address] 12/07/2024 12:00 PM EDT Ancillary Procedure [facility] 101 300 [facility] 101 [place] [phone] 02/25/2025 11:00 AM EDT Office Visit Adult [facility] [address] [place] [phone] Rafael Angeles MD [address] [place] [address] 05/03/2025 2:00 PM EDT Office Visit Pulmonolgy - [place] 175 [facility] 200 [place] [phone] Natalia Winston NP 175 [facility] 200 [place] [address] 05/23/2025 11:00 AM EDT Ancillary Procedure [facility] [address] [place] [address] documented as of this encounter Visit Diagnoses Not on filedocumented in this encounter Care Teams Senior Warehouse Clerk Relationship Specialty Start Date End Date Rafael Angeles MD [address] [place] [address] PCP - General Internal Medicine 05/07/14 documented as of this encounter
--- OUTSIDE RECORDS SUMMARY | 2024-11-18 15:00 | XMS_ITS | Encounter Summary ---
Author Organization [employer] [facility] Address [address] [place] [address] Care Team Providers Care Credit Resolution Representative Name Role Phone Rafael Angeles MD Primary Care Provider [phone] Olga Villareal MD Unavailable [phone] Rafy Dawkins Unavailable Alana Quiñonez NP Unavailable [phone] Encounter Details Date Type Department Care Team Description 04/04/[address] [facility] [place] [address] [place] [address] [phone] [place] Social History Tobacco Use Types [...] on filedocumented in this encounter Care Teams Credit Resolution Representative Relationship Specialty Start Date End Date Rafael Angeles MD [address] [place] [address] [phone] PCP - General Internal Medicine 03/16/20 Olga Villareal MD [address] [place] [address] Specialist Cardiology 07/18/21 Rafy Dawkins PA [address] [place] [address] Specialist Cardiology 07/18/21 05/13/24 Alana Quiñonez, JOVANNA [address] [place] [address] [facility] [place] [address] Cardiology 10/21/23 documented as of this encounter
--- OUTSIDE RECORDS SUMMARY | 2024-11-18 15:00 | XMS_ITS | Encounter Summary ---
Author Organization [facility] Address [address] [place] [address] Care Team Providers Care Carding Doubler Name Role Phone Zack Mora MD Primary Care Provider Unavail able Rafael Angeles MD Primary Care Provider [phone] Rafael Angeles MD Primary Care Provider [phone] Olga Villareal MD Unavailable [phone] Rafy Dawkins Unavailable Alana Quiñonez NP Unavailable [phone] Encounter Details Date Type Department Care Team Description 10/11/2015 PLATING STRIPPER/[facility] Report Medical Records [address] [place] [address] Abstract, Provider Social History Tobacco Use Types [...] on filedocumented in this encounter Care Teams Carding Doubler Relationship Specialty Start Date End Date Zack Mora MD PCP - General Internal Medicine 05/09/14 03/31/16 Rafael Angeles MD [address] [place] [address] PCP - General Internal Medicine 03/16/20 Rafael Angeles MD [address] [place] [address] [phone] PCP - General 04/01/16 03/15/20 Olga Villareal MD [address] [place] [address] [phone] Specialist Cardiology 07/18/21 Rafy Dawkins PA [address] [place] [address] [phone] Specialist Cardiology 07/18/21 05/13/24 Alana Quiñonez, JOVANNA [address] [place] [address] [facility] [place], [place] [phone] Cardiology 10/21/23 documented as of this encounter
--- OUTSIDE RECORDS SUMMARY | 2024-11-18 15:00 | XMS_ITS | Encounter Summary ---
Author Organization [facility] Address [address] [place] [address] Care Team Providers Care Crocheter Hand Name Role Phone Rafael Angeles MD Primary Care Provider [phone] Rafael Angeles MD Primary Care Provider [phone] Olga Villareal MD Unavailable [phone] Rafy Dawkins Unavailable Alana Quiñonez NP Unavailable [phone] Encounter Details Date Type Department Care Team Description 04/03/2016 [facility] Medical Records [address] [place] [address] Brionna Arizmendi MD Social History Tobacco Use Types Packs/Day [...] on filedocumented in this encounter Care Teams Crocheter Hand Relationship Specialty Start Date End Date Rafael Angeles MD [address] [place] [address] PCP - General Internal Medicine 03/16/20 Rafael Angeles MD 444 [place] [address] PCP - General 04/01/16 03/15/20 Olga Villareal MD [address] [place] [address] [phone] Specialist Cardiology 07/18/21 Rafy Dawkins PA [address] [place] [address] [phone] Specialist Cardiology 07/18/21 05/13/24 Alana Quiñonez NP [address] [place] [address] [facility] [place] [address] Cardiology 10/21/23 documented as of this encounter
--- OUTSIDE RECORDS SUMMARY | 2024-11-18 15:00 | XMS_ITS | Encounter Summary ---
Author Organization [employer] [facility] Address [address] [place] [address] Care Team Providers Care Linoleum Mechanic Name Role Phone Rafael Angeles MD Primary Care Provider [phone] Rafael Angeles MD Primary Care Provider [phone] Olga Villareal MD Unavailable [phone] Rafy Dawkins Unavailable Alana Quiñonez NP Unavailable [phone] Encounter Details Date Type Department Care Team Description 02/16/2018 Rail Detector Car Operator Report Medical Records [address] [place] [address] [facility] Social History Tobacco Use Types [...] on filedocumented in this encounter Care Teams Linoleum Mechanic Relationship Specialty Start Date End Date Rafael Angeles MD [address] [place] [address] PCP - General Internal Medicine 03/16/20 Rafael Angeles MD [address] [place] [address] PCP - General 04/01/16 03/15/20 Olga Villareal MD [address] [place] [address] [phone] Specialist Cardiology 07/18/21 Rafy Dawkins PA [address] [place] [address] [phone] Specialist Cardiology 07/18/21 05/13/24 Alana Quiñonez, JOVANNA [address] [place] [address] [facility] [place] [address] Cardiology 10/21/23 documented as of this encounter
--- OUTSIDE RECORDS SUMMARY | 2024-11-18 15:00 | XMS_ITS | Encounter Summary ---
Author Organization [facility] Address [address] [place] [address] Care Team Providers Care Director Decision Support Name Role Phone Rafael Angeles MD Primary Care Provider Rafael Angeles MD Primary Care Provider Olga Villareal MD Unavailable [phone] Rafy Dawkins Unavailable Alana Quiñonez NP Unavailable [phone] Encounter Details Date Type Department Care Team Description 02/14/2020 State Assessed Properties Director Report Medical Records [address] [place] [address] Dennise Perez PA-C 175 [facility] [address] [place] [address] Social History Tobacco Use Types Packs/Day Years [...] filedocumented in this encounter Care Teams Director Decision Support Relationship Specialty Start Date End Date Rafael Angeles MD [address] [place] [address] PCP - General Internal Medicine 03/16/20 Rafael Angeles MD [address] [place] [address] [phone] PCP - General 04/01/16 03/15/20 Olga Villareal MD [address] [place] [address] [phone] Specialist Cardiology 07/18/21 Rafy Dawkins PA [address] [place] [address] [phone] Specialist Cardiology 07/18/21 05/13/24 Alana Quiñonez NP [address] [place] [address] [facility] [place] [address] Cardiology 10/21/23 documented as of this encounter
--- OUTSIDE RECORDS SUMMARY | 2024-11-18 15:00 | XMS_ITS | Encounter Summary ---
Author Organization [facility] Address [address] [place] [address] Care Team Providers Care Funeral Assistant Name Role Phone Rafael Angeles MD Primary Care Provider [phone] Rafael Angeles MD Primary Care Provider [phone] Olga Villareal MD Unavailable [phone] Rafy Dawkins Unavailable Alana Quiñonez NP Unavailable [phone] Encounter Details Date Type Department Care Team Description 04/02/2016 [facility] Medical Records [address] [place] [address] [facility] Social History Tobacco Use Types [...] on filedocumented in this encounter Care Teams Funeral Assistant Relationship Specialty Start Date End Date Rafael Angeles MD [address] [place] [address] [phone] PCP - General Internal Medicine 03/16/20 Rafael Angeles MD [address] [place] [address] PCP - General 04/01/16 03/15/20 Olga Villareal MD [address] [place] [address] [phone] Specialist Cardiology 07/18/21 Rafy Dawkins PA [address] [place] [address] [phone] Specialist Cardiology 07/18/21 05/13/24 Alana Quiñonez NP [address] [place] [address] [facility] [place] [address] Cardiology 10/21/23 documented as of this encounter
--- OUTSIDE RECORDS SUMMARY | 2024-11-18 15:00 | XMS_ITS | Encounter Summary ---
Author Organization [facility] Address [address] [place] [address] Care Team Providers Care Special Services Director Name Role Phone Rafael Angeles MD Primary Care Provider [phone] Rafael Angeles MD Primary Care Provider [phone] Olga Villareal MD Unavailable [phone] Rafy Dawkins Unavailable Alana Quiñonez NP Unavailable [phone] Encounter Details Date Type Department Care Team Description 01/16/2020 Pt. Non Urgent Medic al Question Physiatry - [place] [address] [place] [address] Pantera Robertson PA-C Social History Tobacco Use Types Packs/Day [...] on filedocumented in this encounter Care Teams Special Services Director Relationship Specialty Start Date End Date Rafael Angeles MD [address] [place] [address] PCP - General Internal Medicine 03/16/20 Rafael Angeles MD [address] [place] [address] PCP - General 04/01/16 03/15/20 Olga Villareal MD [address] [place] [address] Specialist Cardiology 07/18/21 Rafy Dawkins PA [address] [place] [address] Specialist Cardiology 07/18/21 05/13/24 Alana Quiñonez, JOVANNA [address] [place] [address] [facility] [place] [address] Cardiology 10/21/23 documented as of this encounter
--- OUTSIDE RECORDS SUMMARY | 2024-11-18 15:00 | XMS_ITS | Encounter Summary ---
Author Organization [place] [address] Care Team Providers Care Junior Manufacturing Engineer Name Role Phone Rafael Angeles MD Primary Care Provider [phone] Reason for Visit * Reason Onset Date Comments Medication Reaction 11/12/2024 Encounter Details Date Type Department Care Team ([facility] st Contact Info) Description 11/12/2024 Nurse Triage Adult Medicine [address] [address] Shira Carney MA Medication Reaction Social History Tobacco Use Types Packs/Day Years [...] Progress Notes * Rama Morales RN - 11/16/2024 8:33 AM EDT Called pt and informed him per Radha Rm to stop taking the Carafate but to continue taking Famotidine and Pantoprazole twice daily as prescribed. He is in agreement with this plan. He states he needs a refill of the Famotidine. Refill request sent to provider in separate encounter. * MERY Oh - 11/15/2024 9:56 PM EDT Please advise patient to discontinue Carafate. He can continue with famotidine 20 mg twice daily and pantoprazole 40 mg twice daily. Patient can continue with Tylenol if needed. Thank you * Rama Morales RN - 11/12/2024 11:39 AM EDT Pt states last night after taking Sucralfate he developed an intermittent headache to the right side of his forehead above his eyebrow. He rates the pain as 5/10 and describes the pain as throbbing. He has taken Tylenol for the pain with good effect. * Shira Carney MA - 11/12/2024 11:09 AM EDT Patient call requires triage: Symptoms patient is presenting: Patient has some pulsing on/off on his right side of his forehead. Patient says its a strange and scary feeling. How long has patient had these symptoms?: Started yesterday after he was started on sucralfate For ALL patients calling to schedule any [...] traveled recently to another state outside of [place], [place], [place], [place], [place], [place], [place]? no o If yes, did you [...] yes, gather 3rd republican insurance information Third Democrat Information: not applicable PCP: Rafael Angeles MD Payor: [facility] MEDICARE ADVANTAGE / Plan: [facility] MEDICARE ADVANTAGE / Product Type: *No Product type* / documented in this encounter Plan of Treatment Upcoming Encounters Date Type Department Care Team (Late st Contact Info) Description 11/22/2024 8:50 AM EDT Office Visit [facility] 154 300 [facility] 154 [place] [phone] Olga Villareal MD 300 [place] [address] 11/23/2024 1:40 PM EDT Consult Gastroenterology - [place] 175 Paramjit 175 [facility] 200 [place] [phone] [place] Zamarripa NP 175 [facility] 200 [place] [address] 11/30/2024 11:30 AM EDT Office Visit Adult Medicine [address] [place] [address] [address] Rafael Angeles MD [address] [place] [address] 12/07/2024 12:00 PM EDT Ancillary Procedure [facility] 101 300 [facility] 101 [place] [phone] 02/25/2025 11:00 AM EDT Office Visit Adult Medicine [address] [place] [address] [address] Rafael Angeles MD [address] [place] [address] 05/03/2025 2:00 PM EDT Office Visit Pulmonolgy - [place] [address] [facility] [address] [place] [phone] Natalia Winston NP [address] [facility] [address] [place] [address] 05/23/2025 11:00 AM EDT Ancillary Procedure [facility] - [address] [place] [address] documented as of this encounter Visit Diagnoses Not on filedocumented in this encounter Care Teams Junior Manufacturing Engineer Relationship Specialty Start Date End Date Rafael Angeles MD [address] [place] [address] PCP - General Internal Medicine 05/07/14 documented as of this encounter
--- OUTSIDE RECORDS SUMMARY | 2024-11-18 15:00 | XMS_ITS | Encounter Summary ---
Author Organization [facility] Address [address] [place] [address] Care Team Providers Care Field Case Manager Name Role Phone Rafael Angeles MD Primary Care Provider Rafael Angeles MD Primary Care Provider Olga Villareal MD Unavailable [phone] Rafy Dawkins Unavailable Alana Quiñonez NP Unavailable [phone] Encounter Details Date Type Department Care Team Description 01/05/2018 Pt. Non Urgent Medical Question Cardiology - [place] [address] [place] [address] [phone] Tamiko Brooks DNP [address] [place] [address] [phone] Social History Tobacco Use Types Packs/Day Years [...] Progress Notes * Shanell Cedeno L.P.N. - 01/06/2018 9:15 AM EDTFrom: Garo Susan To: Tamiko Brooks DNP,TAPE MACHINE TAILER Sent: 01/05/2018 9:11 PM EDT Subject: Open Heart Surgery Thanks You, Tamiko, you did a lot for me no words can say enough to the thank you. November 13 was my surgery as you might no. Beginning my eights week in recovery. When might I be able to lift more than 10 (ten) lbs. Rehab begins January 16 at [facility]. Thank You Garo Davis documented in this encounter Plan of Treatment Not on file documented as of this encounter Visit Diagnoses Not on filedocumented in this encounter Care Teams Field Case Manager Relationship Specialty Start Date End Date Rafael Angeles MD [address] [place] [address] PCP - General Internal Medicine 03/16/20 Rafael Angeles MD [address] [place] [address] PCP - General 04/01/16 03/15/20 Olga Villareal MD [address] [place] [address] Specialist Cardiology 07/18/21 Rafy Dawkins PA [address] [place] [address] Specialist Cardiology 07/18/21 05/13/24 Alana Quiñonez NP [address] [place] [address] [facility] [place] [address] Cardiology 10/21/23 documented as of this encounter
--- OUTSIDE RECORDS SUMMARY | 2024-11-18 15:00 | XMS_ITS | Encounter Summary ---
Author Organization [facility] Address [address] [place] [address] Care Team Providers Care Waiter/Waitress Room Service Name Role Phone Rafael Angeles MD Primary Care Provider Olga Villareal MD Unavailable [phone] Rafy Dawkins Unavailable Alana Quiñonez NP Unavailable [phone] Reason for Referral * EXTERNAL (Routine) - Authorized/Booked Specialty Diagnoses / Procedures Referred By Contact Referred To Contact Otolaryngology / Hearing Procedures REFERRAL TO HEARING TEST Rafael Angeles MD [address] [place] [address] External Hearing Referral ID Status Reason Start Date Expiration Date V isits Requested Visits Authorized ORDER FAXED Authorized/B ooked 03/24/2020 06/28/2020 1 1 Reason for Visit * Reason Onset Date Comments Manager Bank Feedback 03/24/2020 Mychart referral request to [facility]. Encounter Details Date Type Department Care Team Description 03/24/2020 Telephone Adult Medicine [address] [phone] Rafael Angeles MD [address] [place] [address] [phone] Manager Bank Feedback (Mychart referral request to [facility].) Social History Tobacco Use Types Packs/Day Years [...] encounter Miscellaneous Notes * Telephone Encounter - Casi Thompson - 03/24/2020 8:46 AM EDT Please review this patients new referral request. The referral has been pended. Please complete thefollowing: If approved> sign order If denied>please give instructions and route to your practice nursing pool. Practice nurse should inform referrals and the patient if denied. documented in this encounter Plan of Treatment Not on file documented as of this encounter Visit Diagnoses Not on filedocumented in this encounter Care Teams Waiter/Waitress Room Service Relationship Specialty Start Date End Date Rafael Angeles MD [address] [place] [address] PCP - General Internal Medicine 03/16/20 Olga Villareal MD [address] [place] [address] Specialist Cardiology 07/18/21 Rafy Dawkins PA [address] [place] [address] Specialist Cardiology 07/18/21 05/13/24 Alana Quiñonez, JOVANNA [address] [place] [address] [facility] [place] [address] Cardiology 10/21/23 documented as of this encounter
--- OUTSIDE RECORDS SUMMARY | 2024-11-18 15:00 | XMS_ITS | Encounter Summary ---
Author Organization [facility] Address [address] [place] [address] Care Team Providers Care Manager Radiation Name Role Phone Rafael Angeles MD Primary Care Provider [phone] Olga Villareal MD Unavailable [phone] Rafy Dawkins Unavailable Alana Quiñonez NP Unavailable [phone] Encounter Details Date Type Department Care Team Description 08/14/2022 [facility] Medical Records [address] [place] [address] Lexie Ramirez MD [address] [place] [address] [address] [place] [address] Social History Tobacco Use Types Packs/Day Years [...] suspected to have Coronavirus/COVID-19? No / Unsure 08/09/2022 9:11 AM EST documented as of this encounter Plan of Treatment Not on file documented as of this encounter Visit Diagnoses Not on filedocumented in this encounter Care Teams Manager Radiation Relationship Specialty Start Date End Date Rafael Angeles MD [address] [place] [address] PCP - General Internal Medicine 03/16/20 Olga Villareal MD [address] [place] [address] [phone] Specialist Cardiology 07/18/21 Rafy Dawkins PA [address] [place] [address] [phone] Specialist Cardiology 07/18/21 05/13/24 Alana Quiñonez, JOVANNA [address] [place] [address] [facility] [place] [address] Cardiology 10/21/23 documented as of this encounter
--- OUTSIDE RECORDS SUMMARY | 2024-11-18 15:00 | XMS_ITS | Encounter Summary ---
Author Organization [facility] Address [address] [place] [address] Care Team Providers Care Inspector Hot Forgings Name Role Phone Rafael Angeles MD Primary Care Provider [phone] Rafael Angeles MD Primary Care Provider Olga Villareal MD Unavailable [phone] Rafy Dawkins Unavailable Alana Quiñonez NP Unavailable [phone] Encounter Details Date Type Department Care Team Description 04/01/2016 [facility] Medical Records [address] [place] [address] Sanya Sher MD [address] [place] [address] Social History Tobacco Use Types Packs/Day Years [...] on filedocumented in this encounter Care Teams Inspector Hot Forgings Relationship Specialty Start Date End Date Rafael Angeles MD [address] [place] [address]28 PCP - General Internal Medicine 03/16/20 Rafael Angeles MD [address] [place] [address] [phone] PCP - General 04/01/16 03/15/20 Olga Villareal MD [address] [place] [address] [phone] Specialist Cardiology 07/18/21 Rafy Dawkins PA [address] [place] [address] [phone] Specialist Cardiology 07/18/21 05/13/24 Alana Quiñonez, JOVANNA [address] [place] [address] [facility] [place] [address] Cardiology 10/21/23 documented as of this encounter
--- OUTSIDE RECORDS SUMMARY | 2024-11-18 15:00 | XMS_ITS | Encounter Summary ---
Author Organization [employer] [place] [address] Care Team Providers Care Road Mixer Operator Name Role Phone Rafael Angeles MD Primary Care Provider [phone] Reason for Referral * Consultation (Routine) - Pending Review Specialty Diagnoses / Procedures Referred By Contac t Referred To Contact Orthopaedics / Orthopedic Diagnoses Shoulder pain, unspecified chronicity, unspecified laterality Rafael Angeles MD [address] [place] [address] Phone: tel: fax: Referral ID Status Reason Start Date Expiration Date Visits Requested Visits Authorized [id number] Pending Review Specialty Services Required 11/17/2024 11/17/2025 1 1 Reason for Visit * Reason Onset Date Comments cortisone shot 11/17/2024 Encounter Details Date Type Department Care Team (Late st Contact Info) Description 11/17/2024 Telephone Adult Medicine [address] [phone] Rafael Angeles MD [address] [place] [address] cortisone shot Social History Tobacco Use Types Packs/Day Years [...] as of this encounter Progress Notes * Rafael Angeles MD - 11/17/2024 12:39 PM EDT Referral to ortho placed * Kezia Mittal - 11/17/2024 11:30 AM EDT Patient is calling in today requesting a appointment to receive a cortisone shot on his shoulder. Please advise documented in this encounter Plan of Treatment Upcoming Encounters Date Type Department Care Team (Late st Contact Info) Description 11/22/2024 8:50 AM EDT Office Visit [facility] [address] [facility] 154 [place] [address] Olga Villareal MD [address] [place] [address] 11/23/2024 1:40 PM EDT Consult Gastroenterology - [place] [address] 175 [facility] 200 [place] [address] [place] Zamarripa, JOVANNA [address] [facility] 200 [place] [address] 11/30/2024 11:30 AM EDT Office Visit Adult Medicine [address] [address] Rafael Angeles MD [address] [place] [address] 12/07/2024 12:00 PM EDT Ancillary Procedure [facility] 101 300 [facility] 101 [place] [address] 02/25/2025 11:00 AM EDT Office Visit Adult Medicine [facility] 444 [place] [address] Rafael Angeles MD [address] [place] [address] 05/03/2025 2:00 PM EDT Office Visit Pulmonolgy - [place] [address] [facility] [address] [place] [address] Natalia Winston NP [address] [facility] [address] [facility] [address] [place] [address] 05/23/2025 11:00 AM EDT Ancillary Procedure [facility] [address] [place] [phone] Scheduled Referrals Name Type Priority Associated Diagnoses Order Schedule Ambulatory referral to Orthopedic Outpatient Referral Routine Shoulder pain, unspecified chronicity, unspecified laterality 1 Occurrences starting 11/17/2024 until 11/17/2025 documented as of this encounter Visit Diagnoses Diagnosis Shoulder pain, unspecified chronicity, unspecified laterality- Primary documented in this encounter Care Teams Road Mixer Operator Relationship Specialty Start Date End Date Rafael Angeles MD [address] [place] [address] PCP - General Internal Medicine 05/07/14 documented as of this encounter
--- OUTSIDE RECORDS SUMMARY | 2024-11-18 15:00 | XMS_ITS | Encounter Summary ---
Author Organization [facility] Address [address] [place] [address] Care Team Providers Care Agriculture Intern Name Role Phone Rafael Angeles MD Primary Care Provider [phone] Olga Villareal MD Unavailable [phone] Rafy Dawkins Unavailable Alana Quiñonez NP Unavailable [phone] Encounter Details Date Type Department Care Team Description 04/30/2020 Pt. Non Urgent Medical Question Pulmonology - [place] 175 [facility] [address] [place] [address] Randy Monsalve MD 175 [facility] [address] [place] [phone] Social History Tobacco Use Types Packs/Day Years [...] on filedocumented in this encounter Care Teams Agriculture Intern Relationship Specialty Start Date End Date Rafael Angeles MD [address] [place] [address] PCP - General Internal Medicine 03/16/20 Olga Villareal MD [address] [place] [address] [phone] Specialist Cardiology 07/18/21 Rafy Dawkins PA [address] [place] [address] [phone] Specialist Cardiology 07/18/21 05/13/24 Alana Quiñonez NP [address] [place] [address] [facility] [place] [address] Cardiology 10/21/23 documented as of this encounter
--- OUTSIDE RECORDS SUMMARY | 2024-11-18 15:00 | XMS_ITS | Encounter Summary ---
Author Organization [facility] Address [address] [place] [address] Care Team Providers Care Cat Sitter Name Role Phone Rafael Angeles MD Primary Care Provider [phone] Rafael Angeles MD Primary Care Provider [phone] Olga Villareal MD Unavailable [phone] Rafy Dawkins Unavailable Alana Quiñonez NP Unavailable [phone] Encounter Details Date Type Department Care Team Description 10/03/2017 Lithographic Proofer Apprentice Report Medical Records [address] [place] [address] Lyle Pitt MD Social History Tobacco Use [...] on filedocumented in this encounter Care Teams Cat Sitter Relationship Specialty Start Date End Date Rafael Angeles MD [address] [place] [address] PCP - General Internal Medicine 03/16/20 Rafael Angeles MD [address] [place] [address] PCP - General 04/01/16 03/15/20 Olga Villareal MD [address] [place] [address] [phone] Specialist Cardiology 07/18/21 Rafy Dawkins PA [address] [place] [address] [phone] Specialist Cardiology 07/18/21 05/13/24 Alana Quiñonez, JOVANNA [address] [place] [address] [facility] [place] [address] Cardiology 10/21/23 documented as of this encounter
--- OUTSIDE RECORDS SUMMARY | 2024-11-18 15:00 | XMS_ITS | Encounter Summary ---
Author Organization [facility] Address [address] [place] [address] Care Team Providers Care Banking Specialist Name Role Phone Rafael Angeles MD Primary Care Provider Rafael Angeles MD Primary Care Provider Olga Villareal MD Unavailable [phone] Rafy Dawkins Unavailable Alana Quiñonez NP Unavailable [phone] Reason for Visit * Reason Onset Date Comments hospital follow up 11/19/2017 Encounter Details Date Type Department Care Team Description 11/19/2017 Telephone Adult Medicine [address] [phone] Zack Mora MD hospital follow up Social History Tobacco Use Types Packs/Day Years [...] encounter Miscellaneous Notes * Telephone Encounter - Kemi Jesus Rn - 11/19/2017 10:36 AM EDT Spoke to pt , d/c on 11/18 from [facility], cardiac surgery, Has appt with Cardiology on 12/11 To be seen here on 12/01 at 10:[address] Mora * Telephone Encounter - Zee Galloway - 11/19/2017 9:59 AM EDT Hospital follow up appointment needed Hospital patient was treated at: [facility] Was this only an ER visit or was the patient admitted to the hospital? Admitted to hospital Date of visit if ER visit only: N/A If patient was admitted what was the date of discharge? 11/18/2017 Reason/diagnosis for visit or stay: Open Heart Surgery When was the patient told to follow up? 2-3 weeks Was visit or stay related to an injury? NO If yes, what was the date of injury (DOI)? N/A If yes, was the injury due to N/A documented in this encounter Plan of Treatment Not on file documented as of this encounter Visit Diagnoses Not on filedocumented in this encounter Care Teams Banking Specialist Relationship Specialty Start Date End Date Rafael Angeles MD [address] [place] [address] PCP - General Internal Medicine 03/16/20 Rafael Angeles MD [address] [place] [address]77 PCP - General 04/01/16 03/15/20 Olga Villareal MD [address] [place] [address]167 Specialist Cardiology 07/18/21 Rafy Dawkins PA [address] [place] [address]366 Specialist Cardiology 07/18/21 05/13/24 Alana Quiñonez NP [address] [place] [address] [facility] [place] [address] Cardiology 10/21/23 documented as of this encounter
--- OUTSIDE RECORDS SUMMARY | 2024-11-18 15:00 | XMS_ITS | Encounter Summary ---
Author Organization [facility] Address [address] [place] [address] Care Team Providers Care Program Support Clerk Name Role Phone Rafael Angeles MD Primary Care Provider [phone] Rafael Angeles MD Primary Care Provider Olga Villareal MD Unavailable [phone] Rafy Dawkins Unavailable Alana Quiñonez NP Unavailable Reason for Referral * EXTERNAL (Routine) - Authorized/Booked Specialty Diagnoses / Procedures Referred By Wanda t Referred To Contact Cardiology / Cardiac rehabilitation Procedures REFERRAL TO CARDIAC REHABILITATION Olga Villareal MD [address] [place] [address] Dept., [facility] Occupational & Pt [address] [place] [address] Referral ID Status Reason Start Date Expiration Date V isits Requested Visits Authorized SEE NOTE Authorized/B ooked 12/08/2017 03/11/2018 1 1 Encounter Details Date Type Department Care Team Description 12/08/2017 Pt. Non Urgent Medical Question Cardiology - [place] [address] [place] [address] [phone] Olga Villareal MD [address] [place] [address] Thoracic aortic aneurysm without rupture (HCC) (Primary Dx) Social History Tobacco Use [...] this encounter Progress Notes * Shanell Cedeno L.P.NSb - 12/08/2017 2:38 PM EDTFrom: Garo Davis To: Olga Villareal MD Sent: 12/08/2017 10:53 AM EDT Subject: Authorization [facility] is waiting for Authorization, they would like to process this though the Insurance company. They are unable to proceed unless they received something in writing from you. Thank You Garo documented in this encounter Plan of Treatment Not on file documented as of this encounter Visit Diagnoses Diagnosis Thoracic aortic aneurysm without rupture (HCC)- Primary Thoracic aneurysm without mention of rupture documented in this encounter Care Teams Program Support Clerk Relationship Specialty Start Date End Date Rafael Angeles MD [address] [place] [address] PCP - General Internal Medicine 03/16/20 Rafael Angeles MD [address] [place] [address] 65[address] PCP - General 04/01/16 03/15/20 Olga Villareal MD [address] [place] [address] 759[address] Specialist Cardiology 07/18/21 Rafy Dawkins PA [address] [place] [address] Specialist Cardiology 07/18/21 05/13/24 Alana Quiñonez, JOVANNA [address] [place] [address] [facility] [place] [address] Cardiology 10/21/23 documented as of this encounter
--- OUTSIDE RECORDS SUMMARY | 2024-11-18 15:00 | XMS_ITS | Encounter Summary ---
Author Organization [facility] Address [address] [place] [address] Care Team Providers Care Dropper Tank Storage Name Role Phone Rafael Angeles MD Primary Care Provider [phone] Olga Villareal MD Unavailable [phone] Rafy Dawkins Unavailable Alana Quiñonez NP Unavailable [phone] Encounter Details Date Type Department Care Team Description 03/24/2020 Pt. Referral Request [facility] [place] [address] [place] [address] [phone] Md [place] Social History Tobacco Use Types [...] on filedocumented in this encounter Care Teams Dropper Tank Storage Relationship Specialty Start Date End Date Rafael Angeles MD [address] [place] [address] [phone] PCP - General Internal Medicine 03/16/20 Olga Villareal MD [address] [place] [address] Specialist Cardiology 07/18/21 Rafy Dawkins PA [address] [place] [address] Specialist Cardiology 07/18/21 05/13/24 Alana Quiñonez, JOVANNA [address] [place] [address] [facility] [place] [address] Cardiology 10/21/23 documented as of this encounter
--- OUTSIDE RECORDS SUMMARY | 2024-11-18 15:00 | XMS_ITS | Encounter Summary ---
Author Organization [facility] Address [address] [place] [address] Care Team Providers Care Head Usher Name Role Phone Zack Mora MD Primary Care Provider Unavail able Rafael Angeles MD Primary Care Provider Rafael Angeles MD Primary Care Provider Olga Villareal MD Unavailable [phone] Rafy Dawkins Unavailable Alana Quiñonez NP Unavailable [phone] Encounter Details Date Type Department Care Team Description 04/10/2015 Pt. Non Urgent Medical Question Cardiology - [address] [phone] Tamiko Brooks DNP [address] [place] [address] [phone] Social History Tobacco Use Types Packs/Day Years [...] as of this encounter Progress Notes * Jennifer Arzate L.P.N. - 04/11/2015 9:02 AM EDTFrom: Garo Susan To: Tamiko Brooks DNP,RURAL CARRIER ASSOCIATE Sent: 04/10/2015 6:27 PM EDT Subject: Test Vikas Morrison, The last time we talked you said an appt. would be set up for me? Regarding my condition, three leaves vs two leaves. Ultra sound I believe, don't understand what that means~~~I'm sure you do? Also today discomfort with pain on my left side first three hours every 10 to 15 Minutes. It is now around 6:00 PM I still have this pain not as frequent. This is for your information. Yes I did us Nitro [place] witch slowed the pain Down. Sincerely, Garo comes and goes, The last six hours. This is only for your information, documented in this encounter Plan of Treatment Not on file documented as of this encounter Visit Diagnoses Not on filedocumented in this encounter Care Teams Head Usher Relationship Specialty Start Date End Date Zack Mora MD PCP - General Internal Medicine 05/09/14 03/31/16 Rafael Angeles MD [address] [place] [address] 7[address] PCP - General Internal Medicine 03/16/20 Rafael Angeles MD [address] [place] [address] 685[address] PCP - General 04/01/16 03/15/20 Olga Villareal MD [address] [place] [address] 35043 Specialist Cardiology 07/18/21 Rafy Dawkins PA [address] [place] [address] 50653 Specialist Cardiology 07/18/21 05/13/24 Alana Quiñonez NP [address] [place] [address] [facility] [place] [address] Cardiology 10/21/23 documented as of this encounter
--- OUTSIDE RECORDS SUMMARY | 2024-11-18 15:00 | XMS_ITS | Clinical Summary ---
Author Organization [facility] Address [address] [place] [address] Care Team Providers Care Business Systems Developer Name Role Phone Rafael Angeles MD Primary Care Provider [phone] Olga Villareal MD Unavailable [phone] Alana Quiñonez NP Unavailable [phone] Allergies Active Allergy Reactions Severity Noted Date Comments Morphine 12/17/2023 Dry heaves Medications Medication Sig Dispensed Refills Start Date End Date Status Oxygen Historical (HISTORICAL OXYGEN) Inhale into the lungs. Pt uses oxygen at night 2.5 L 0 Active aspirin 81 MG chewable tablet Take 1 tablet by mouth daily. 90 tablet 1 08/30/2021 Active latanoprost (XALATAN) 0.005 % ophthalmic solution INSTILL 1 DROP INTO BOTH EYES AT BEDTIME 0 04/29/2022 Active ALBUTEROL SULFATE 108 (90 Base) MCG/ACT Aero SolnIndications:C hronic obstructive pulmonary disease, unspecified COPD type (HCC) Inhale 2 Puffs into the lungs every 6 hours as needed for Cough, Wheezing or Shortness of Breath. 8.5 g 0 08/18/2023 Active nitroGLYCERIN (NITROSTAT) 0.[address] 1 Tablet under the tongue every 5 minutes as needed for Chest pain. 25 Tablet 0 10/10/2023 Active acetaminophen (TYLENOL) 500 MG tablet Take 2 Tablets by mouth every 8 hours for 30 days. 180 Tablet 5 10/16/2023 Active labetalol (NORMODYNE) 100 MG tablet Take 1 Tablet by mouth 2 times daily. 180 Tablet 1 03/18/2024 Active lorazepam (Ativan) 0.5 MG tablet Take 1 Tablet by mouth 2 times daily as needed for Anxiety for up to 10 days. 20 Tablet 0 04/05/2024 Active Diclofenac Sodium (Voltaren) 1 % Gel Apply 4 g topically 4 times daily as needed (joint pain). 100 g 1 04/05/2024 Active sertraline (Zoloft) 50 MG tablet Take 1 tablet by mouth qhs 90 Tablet 1 05/04/2024 Active Masks MiscIndications:N octurnal hypoxia 1 Each by Does not apply route at bedtime. Please provide patient with oxygen humifification device to use with oxygen at night. 1 Each 6 05/07/2024 Active atorvastatin (LIPITOR) 40 MG tablet Take 1 Tablet by mouth daily for 360 days. 90 Tablet 3 05/21/2024 Active gabapentin (NEURONTIN) 100 MG capsule Take 1-2 Capsules by mouth 2 times daily. 360 Capsule 1 05/24/2024 Active clorazepate (TRANXENE) 7.5 MG tablet Take 1 Tablet by mouth 2 times daily. 56 Tablet 1 05/24/2024 Active Zolpidem Tartrate 5 MG TabIndications:In somnia, unspecified type Take 1 Tablet by mouth at bedtime as needed for Insomnia. 28 Tablet 0 06/07/2024 Active omeprazole (PRILOSEC) 40 MG capsule Take 1 Capsule by mouth daily. 90 Capsule 1 06/08/2024 Active citalopram (CELEXA) 40 MG tablet Take 1 Tablet by mouth daily. 90 Tablet 1 07/02/2024 Active pantoprazole (Protonix) 40 MG tablet Take 1 Tablet by mouth 2 times daily (before meals). Take on empty stomach, wait 30 mins and then eat to activate the medication- before breakfast and supper. 60 Tablet 11 06/10/2024 Active famotidine (PEPCID) 20 MG tablet Take 1 Tablet by mouth 2 times daily as needed for Heartburn. Take at least one dose before bedtime 60 Tablet 11 06/10/2024 Active Alum & Mag Hydroxide-Simeth 200-200-20 MG/5ML Suspension Take 15 mL by mouth 4 times daily as needed for Other. 1680 mL 11 06/10/2024 Active tamsulosin (Flomax) 0.4 MG 24 hr capsule Take 2 Capsules by mouth daily. Take 30 mins after same meal every day. 90 Capsule 1 06/14/2024 Active Fluticasone-Umecl idin-Vilant (Trelegy Ellipta) 100-62.5-25 MCG/ACT AEROSOL POWDER,BREATH ACTIVATEDIndicati ons:Chronic obstructive pulmonary disease, unspecified COPD type (HCC) Inhale 1 Puff into the lungs daily. 60 Each 2 06/21/2024 Active Active Problems Problem Noted Date Preprocedural cardiovascular examination 05/21/2024 Last Assessment & Plan: At this time, he has a fully repaired thoracicoabdominal aneurysm via TEVAR and a surgically repaired thoracic aortic aneurysm. I have verified with his cardiac surgeon Dr. Pitt as well. There are no cardiovascular or surgical contraindications to endoscopy if it is necessary and the appropriate test for diagnosing his GI issues. I have CCed his GI providers this note as well. Continue labetalol periprocedurally. Would also continue baby aspirin periprocedurally. S/P aortic dissection repair 08/14/2023 Overview: - status post emergent TEVAR repair of type B aortic dissection and descending thoracic [place] [facility] -Procedure complicated by postoperative perinephric subcapsular hematoma and acute kidney injury with a peak creatinine of 3.9 -Most recent CT angiography per cardiac surgery note from 05/04/2024 showed a small type Ib endoleak which was not felt to be of great concern-cardiac surgeries plan is to repeat CT angiography is nearly to reassess Last Assessment & Plan: It sounds like he has had good success with his repair and continues to follow regularly at cardiac surgery clinic. At this point, of paramount importance will be blood pressure control. Blood pressure today was quite elevated. The patient does not regularly check his blood pressure at home but is certainly willing to. Blood pressure has been well-controlled on prior visits and on his visit with Dr. Pitt. My bias is to initiate another antihypertensive-likely valsartan. This may also have benefit and potential microvascular disease. Alternatively, we could consider a calcium channel mayra such as amlodipine which may have some benefit with vasospasm-both coronary and esophageal. However, I would like to get a sense of what his blood pressure is at home. I recommended home resting blood pressures 2-3 times a week, at different times of the day if possible. I instructed him on the proper technique. He will compile a list of these blood pressures and message me via buuteeqt in a month or so. For now, continue monotherapy with labetalol. Chest pain 07/18/2022 Last Assessment & Plan: Sounds noncardiac-see plan above. 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 ??Imaging was read as probably normal exercise nuclear stress test,??Gated images revealed normal LV motion with an EF of 72%. Last Assessment & Plan: Continues to have atypical chest pains which I suspect are noncardiac even though they are responsive to sublingual nitro at times. Often this is not a very specific criteria for cardiac chest pain. In light of his recent GI issues, I wonder if they may be GI in nature. Either way, he had fairly unremarkable coronaries on cardiac cath performed prior to his surgery. This is also very reassuring. For now, continue to monitor the symptoms. He knows when to seek emergent medical attention. Chronic bronchitis 11/10/2015 Obstructive sleep apnea hypopnea, modera te AHI 19 06/06/2015 Overview: NOT TREATED (December 2019) Thoracic aortic aneurysm 02/06/2015 Overview: -Ascending aortic aneurysm repair with graft, 11/13/2017, [...] aneurysm repair Last Assessment & Plan: Patient just had evaluation with CT scan by Dr. Hill at [facility] earlier this year. Will plan to do an echocardiogram next year prior to his visit to evaluate his ascending aortic aneurysm measurements and his valves. Hyperlipidemia 06/23/2014 Last Assessment & Plan: Unclear why his statin was discontinued-I suspect this was an error. I have resumed atorvastatin 40 mg at bedtime which she has tolerated in the past and which did a good job controlling his lipids. Gout 05/27/2014 Hypertension 05/27/2014 Last Assessment & Plan: See plan above. GERD (gastroesophageal reflux disease) 0 05/27/2014 Anxiety 05/27/2014 CTS (carpal tunnel syndrome) 05/27/2014 Overview: S/p CTR DJD (degenerative joint disease) 014 Seizure 05/27/2014 Overview: Age 46 Erectile dysfunction 05/27/2014 Trigeminal neuralgia 05/27/2014 Insomnia 05/27/2014 Resolved Problems Problem Noted Date Resolved Date AAA (abdominal aortic aneurysm) 04/28/2023 05/21/2024 Last Assessment & Plan: Followed by vascular surgery who is obtaining serial imaging Obstructive sleep apnea 07/15/2016 07/15/20 16 Hypercholesterolemia 05/27/2014 06/23/2022 Immunizations Name Administration Dates Next Due COVID-19 (Pfizer) 05/29/2021,10/25/2020,10/04/19 21 Influenza (> 6 Months) 08/22/2016 Influenza vaccine high dose age 65 and over 06/18/2022,05/24/2021,06/03/2020,05/11,08/22/2016,05/12/2015 Pneumoccoccal(Adult) Polysac charide PPSV23 08/15/2015 Pneumococcal Conjugate PCV-13 03/14/2017 Shingrix (Recombinant zoster vaccine) 08/19/2021 ,06/19/2021 TD (STATE SUPPLIED FOR ADULT S AND CHILDREN) 09/17/2018 Family History Medical History Relation Name Comments mva Brother 1 45 agent orange Brother 2 Cirrhosis Father 53, alcoho lism CT Father CAD Maternal Grandfather CAD Maternal Grandmother CT Mother 45 Relation Name Status Comments Brother [...] file Not on file Not on file Last Filed Vital Signs Vital Sign Reading Time Taken Comments Blood Pressure 140/60 06/10/2024 2:25 PM EDT Pulse 63 06/10/2024 2:25 PM EDT Temperature 36.2 ??C (97.2 ??F) 05/24/2024 10:08 AM E DT Respiratory Rate 12 05/24/2024 10:08 AM EDT Oxygen Saturation 96% 05/21/2024 10:09 AM EDT Inhaled Oxygen Concentration - - Weight 81.9 kg (180 lb 9.6 oz) 06/10/2024 2:25 P M EDT Height 172.7 cm (5' 8 ) 06/10/2024 2:25 PM EDT Body Mass Index 27.46 06/10/2024 2:25 PM EDT Plan of Treatment Health Maintenance Due Date Last Done Comments COLON CANCER SCREENING 12/19/2023 9, 01/21/2014 (External Completion) Covid-19 Vaccine ( season) 2024 07/23/2022, 05/29/2021, 10/25/2020, Additional history exists INFLUENZA (#1) 2024 06/18/2022, 05/03, 06/03/2020, Additional history exists BMI CHECK/ADVISE 09/01/2024 04/30/2024, , 02/25/2024, Additional history exists DTAP/TDAP/TD (1 - Tdap) 09/17/2028 09/17/2018 Post poned from 09/18/2018 (Not Indicated) CHOLESTEROL SCREENING 04/09/2029 04/09/2024 , 04/21/2023, 01/17/2022, Additional history exists PNEUMOCOCCAL VACCINE Completed 03/14/2017, 08/15/20 15 SHINGLES VACCINE Completed 08/19/2021, 06/19/2021 Advance Directives For more information, please contact: [phone] Latest Code Status on File Code Status Date Activated Date Inactivated Comments Full Code 07/06/2023 2:26 PM molst form signed 10/05/2022 Care Teams Business Systems Developer Relationship Specialty Start Date End Date Rafael Angeles MD [address] [place] [id number] PCP - General Internal Medicine 03/16/20 Olga Villareal MD [address] [place] [address] [phone] Specialist Cardiology 07/18/21 Alana Quiñonez, JOVANNA [address] [place] [address] [facility] [place] [address] Cardiology 10/21/23
--- OUTSIDE RECORDS SUMMARY | 2024-11-18 15:00 | XMS_ITS | Encounter Summary ---
Author Organization [facility] Address [address] [place] [address] Care Team Providers Care Follow Up Specialist Name Role Phone Rafael Angeles MD Primary Care Provider Rafael Angeles MD Primary Care Provider Olga Villareal MD Unavailable [phone] Rafy Dawkins Unavailable Alana Quiñonez NP Unavailable [phone] Encounter Details Date Type Department Care Team Description 07/29/2017 Production Support Developer Report Medical Records [address] [place] [address] [id number] Shanell Manzano Social History Tobacco Use Types Packs/Day Years [...] on filedocumented in this encounter Care Teams Follow Up Specialist Relationship Specialty Start Date End Date Rafael Angeles MD [address] [place] [address] [phone] PCP - General Internal Medicine 03/16/20 Rafael Angeles MD [address] [place] [address] [phone] PCP - General 04/01/16 03/15/20 Olga Villareal MD [address] [place] [address] [phone] Specialist Cardiology 07/18/21 Rafy Dawkins PA [address] [place] [address] [phone] Specialist Cardiology 07/18/21 05/13/24 Alana Quiñonez, JOVANNA [address] [place] [address] [facility] [place] [address] Cardiology 10/21/23 documented as of this encounter
--- OUTSIDE RECORDS SUMMARY | 2024-11-18 15:00 | XMS_ITS | Encounter Summary ---
Author Organization [facility] Address [address] [place] [address] Care Team Providers Care Flavorer Name Role Phone Zack Mora MD Primary Care Provider Unavail able Rafael Angeles MD Primary Care Provider [phone] Rafael Angeles MD Primary Care Provider Olga Villareal MD Unavailable [phone] Rafy Dawkins Unavailable Alana Quiñonez NP Unavailable [phone] Encounter Details Date Type Department Care Team Description 06/04/2015 Refill Adult Medicine [address] [phone] Zack Mora MD Social History Tobacco Use [...] encounter Miscellaneous Notes * Telephone Encounter - Darleen Givens L.P.N. - 06/05/2015 10:55 AM EDTFrom: Garo Pricepaytonkyle To: Zack Mora MD Sent: 06/04/2015 4:11 PM EDT Subject: Medication Renewal Request Original authorizing provider: Zack Mora MD Garo Gamblekyle would like a refill of the following medications: valsartan-hydrochlorothiazide (DIOVAN-HCT) 160-25 MG per tablet [Zack Mora MD] Zolpidem Tartrate 10 MG Tab [Zack Mora MD] lorazepam (ATIVAN) 1 MG tablet [Zack Mora MD] Preferred pharmacy: [facility] [address] [place], [place] [address]; LIN Comment: documented in this encounter Plan of Treatment Not on file documented as of this encounter Visit Diagnoses Diagnosis Insomnia Insomnia, unspecified Anxiety Anxiety state, unspecified documented in this encounter Care Teams Flavorer Relationship Specialty Start Date End Date Zack Mora MD PCP - General Internal Medicine 05/09/14 03/31/16 Rafael Angeles MD [address] [place] [address] [phone] PCP - General Internal Medicine 03/16/20 Rafael Angeles MD [address] [place] [address] [phone] PCP - General 04/01/16 03/15/20 Olga Villareal MD [address] [place] [address] [phone] Specialist Cardiology 07/18/21 Rafy Dawkins PA [address] [place] [address] [phone] Specialist Cardiology 07/18/21 05/13/24 Alana Quiñonez, JOVANNA [address] [place] [address] [facility] [place] [address] Cardiology 10/21/23 documented as of this encounter
--- OUTSIDE RECORDS SUMMARY | 2024-11-18 15:00 | XMS_ITS | Encounter Summary ---
Author Organization [facility] Address [address] [place] [address] Care Team Providers Care Coater Brake Linings Name Role Phone Zack Mora MD Primary Care Provider Unavail able Rafael Angeles MD Primary Care Provider Rafael Angeles MD Primary Care Provider Olga Villareal MD Unavailable [phone] Rafy Dawkins Unavailable Alana Quiñonez NP Unavailable [phone] Encounter Details Date Type Department Care Team Description 10/12/2015 Pt. Non Urgent Medic al Question Adult Medicine [address] [phone] Zack Mora MD Social History Tobacco Use [...] as of this encounter Progress Notes * Lorenza Hinkle M.A. - 10/12/2015 10:10 AM ESTFrom: Garo Pricepaytonkyle To: Zack Mora MD Sent: 10/12/2015 5:23 AM EST Subject: Motorcycle Riding Instructor Good Morning, Right ear has been blocked for two days. I believe there is a wax build up and need to be cleaned out. Thank You, Garo documented in this encounter Plan of Treatment Not on file documented as of this encounter Visit Diagnoses Not on filedocumented in this encounter Care Teams Coater Brake Linings Relationship Specialty Start Date End Date Zack Mora MD PCP - General Internal Medicine 05/09/14 03/31/16 Rafael Angeles MD [address] [place] [address] [id number] PCP - General Internal Medicine 03/16/20 Rafael Angeles MD [address] [place] [address] 38009 PCP - General 04/01/16 03/15/20 Olga Villareal MD [address] [place] [address] [phone] Specialist Cardiology 07/18/21 Rafy Dawkins PA [address] [place] [address] 01686 Specialist Cardiology 07/18/21 05/13/24 Alana Quiñonez NP [address] [place] [address] [facility] [place] [address] Cardiology 10/21/23 documented as of this encounter
--- OUTSIDE RECORDS SUMMARY | 2024-11-18 15:00 | XMS_ITS | Encounter Summary ---
Author Organization [facility] Address [address] [place] [address] Care Team Providers Care Director Of Medical Review Name Role Phone Zack Mora MD Primary Care Provider Unavail able Rafael Angeles MD Primary Care Provider Rafael Angeles MD Primary Care Provider [phone] Olga Villareal MD Unavailable [phone] Rafy Dawkins Unavailable Alana Quiñonez NP Unavailable [phone] Encounter Details Date Type Department Care Team Description 03/28/2015 Refill Adult Medicine [address] [phone] Zack Mora MD Social History Tobacco Use [...] Telephone Encounter - Lorenza Hinkle M.A. - 03/29/2015 8:46 AM EDTFrom: Garo Davis To: Zack Mora MD Sent: 03/28/2015 6:13 PM EDT Subject: Medication Renewal Request Original authorizing provider: MD Garo Naglealou would like a refill of the following medications: Zolpidem Tartrate 10 MG Tab [Zack Mora MD] Preferred pharmacy: [facility] [address] [place] [address] [place] [address] [facility] [place]; LIN Comment: documented in this encounter Plan of Treatment Not on file documented as of this encounter Visit Diagnoses Diagnosis Insomnia- Primary Insomnia, unspecified documented in this encounter Care Teams Director Of Medical Review Relationship Specialty Start Date End Date Zack Mora MD PCP - General Internal Medicine 05/09/14 03/31/16 Rafael Angeles MD [address] [place] [address] [phone] PCP - General Internal Medicine 03/16/20 Rafael Angeles MD [address] [place] [address] [phone] PCP - General 04/01/16 03/15/20 Olga Villareal MD [address] [place] [address] 34671 Specialist Cardiology 07/18/21 Rafy Dawkins PA [address] [place] [address] 26308 Specialist Cardiology 07/18/21 05/13/24 Alana Quiñonez, JOVANNA [address] [place] [address] [facility] [place] [address] Cardiology 10/21/23 documented as of this encounter
--- OUTSIDE RECORDS SUMMARY | 2024-11-18 15:00 | XMS_ITS | Encounter Summary ---
Author Organization [facility] Address [address] [place] [address] Care Team Providers Care Open Hearth Worker Name Role Phone Zack Mora MD Primary Care Provider Unavail able Rafael Angeles MD Primary Care Provider Rafael Angeles MD Primary Care Provider Olga Villareal MD Unavailable [phone] Rafy Dawkins Unavailable Alana Quiñonez NP Unavailable Encounter Details Date Type Department Care Team Description 08/08/2015 Cnc Applications Engineer Report Medical Records [address] [place] [address] Erin Steel MD [address] [place] [id number] Social History Tobacco Use Types Packs/Day Years [...] on filedocumented in this encounter Care Teams Open Hearth Worker Relationship Specialty Start Date End Date Zack Mora MD PCP - General Internal Medicine 05/09/14 03/31/16 Rafael Angeles MD [address] [place] [address] 39706 PCP - General Internal Medicine 03/16/20 Rafael Angeles MD [address] [place] [address] 50097 PCP - General 04/01/16 03/15/20 Olga Villareal MD [address] [place] [address] [phone] Specialist Cardiology 07/18/21 Rafy Dawkins PA [address] [place] [address] 93263 Specialist Cardiology 07/18/21 05/13/24 Alana Quiñonez, JOVANNA [address] [place] [address] [facility] [place] [address] Cardiology 10/21/23 documented as of this encounter
--- OUTSIDE RECORDS SUMMARY | 2024-11-18 15:00 | XMS_ITS | Encounter Summary ---
Author Organization [facility] Address [address] [place] [address] Care Team Providers Care Ergonomics Technician Name Role Phone Rafael Angeles MD Primary Care Provider Rafael Angeles MD Primary Care Provider Olga Villareal MD Unavailable [phone] Rafy Dawkins Unavailable Alana Quiñonez NP Unavailable Reason for Visit * Reason Onset Date Comments Mychart Rx Refill 09/20/2017 Encounter Details Date Type Department Care Team Description 09/20/2017 Refill [facility] MyChart [address] [place] [address] [phone] Md Carmel Mychart Rx Refill Social History Tobacco Use [...] encounter Miscellaneous Notes * Telephone Encounter - Vonda Lozano M.A. - 09/22/2017 11:08 AM EST My chart msg sent pt needs appt * Telephone Encounter - Sergio Hood - 09/21/2017 7:27 PM ESTFrom: Garo Davis Sent: 09/20/2017 11:47 AM EST Subject: Medication Renewal Request Garo Davis would like a refill of the following medications: Medication renewals requested in this message routed to other providers: valsartan (DIOVAN) 160 MG tablet [Casi Raymond PA-C] Other - see comments for explanation Preferred pharmacy: [facility] [address] [place], [place] [address]; LIN Comment: Metoprolol documented in this encounter Plan of Treatment Not on file documented as of this encounter Visit Diagnoses Not on filedocumented in this encounter Care Teams Ergonomics Technician Relationship Specialty Start Date End Date Rafael Angeles MD [address] [place] [address] [phone] PCP - General Internal Medicine 03/16/20 Rafael Angeles MD [address] [place] [address] [phone] PCP - General 04/01/16 03/15/20 Olga Villareal MD [address] [place] [address] 11037 Specialist Cardiology 07/18/21 Rafy Dawkins PA [address] [place] [address] 87297 Specialist Cardiology 07/18/21 05/13/24 Alana Quiñonez NP [address] [place] [address] [facility] [place] [address] Cardiology 10/21/23 documented as of this encounter
--- OUTSIDE RECORDS SUMMARY | 2024-11-18 15:00 | XMS_ITS | Encounter Summary ---
Author Organization [facility] Address [address] [place] [address] Care Team Providers Care Post Tensioning Ironworker Name Role Phone Rafael Angeles MD Primary Care Provider [phone] Rafael Angeles MD Primary Care Provider [phone] Olga Villareal MD Unavailable [phone] Rafy Dawkins Unavailable Alana Quiñonez NP Unavailable [phone] Encounter Details Date Type Department Care Team Description 04/29/2018 Culture Manager Report Medical Records [address] [place] [address] Social History Tobacco Use Types Packs/Day Years [...] on filedocumented in this encounter Care Teams Post Tensioning Ironworker Relationship Specialty Start Date End Date Rafael Angeles MD [address] [place] [address] [phone] PCP - General Internal Medicine 03/16/20 Rafael Angeles MD [address] [place] [address] 23244 PCP - General 04/01/16 03/15/20 Olga Villareal MD [address] [place] [address] [phone] Specialist Cardiology 07/18/21 Rafy Dawkins PA [address] [place] [address] [phone] Specialist Cardiology 07/18/21 05/13/24 Alana Quiñonez NP [address] [place] [address] [facility] [place] [address] Cardiology 10/21/23 documented as of this encounter
--- OUTSIDE RECORDS SUMMARY | 2024-11-18 15:00 | XMS_ITS | Encounter Summary ---
Author Organization [facility] Address [address] [place] [address] Care Team Providers Care Air Hammer Operator Name Role Phone Rafael Angeles MD Primary Care Provider [phone] Rafael Angeles MD Primary Care Provider [phone] Olga Villareal MD Unavailable [phone] Rafy Dawkins Unavailable Alana Quiñonez NP Unavailable [phone] Encounter Details Date Type Department Care Team Description 11/13/2017 [facility] Medical Records [address] [place] [id number] Lyle Pitt MD Social History Tobacco Use [...] on filedocumented in this encounter Care Teams Air Hammer Operator Relationship Specialty Start Date End Date Rafael Angeles MD [address] [place] [address] PCP - General Internal Medicine 03/16/20 Rafael Angeles MD [address] [place] [address] [place] [phone] PCP - General 04/01/16 03/15/20 Olga Villareal MD [address] [place] [address] Specialist Cardiology 07/18/21 Rafy Dawkins PA [address] [place] [address] [phone] Specialist Cardiology 07/18/21 05/13/24 Alana Quiñonez NP [address] [place] [address] [facility] [place] [address] Cardiology 10/21/23 documented as of this encounter
--- OUTSIDE RECORDS SUMMARY | 2024-11-18 15:00 | XMS_ITS | Encounter Summary ---
Author Organization [facility] Address [address] [place] [address] Care Team Providers Care Astrophysics Professor Name Role Phone Zack Mora MD Primary Care Provider Unavail able Rafael Angeles MD Primary Care Provider Rafael Angeles MD Primary Care Provider Olga Villareal MD Unavailable Rafy Dawkins Unavailable Alana Quiñonez NP Unavailable [phone] Encounter Details Date Type Department Care Team Description 04/03/2015 Pt. Non Urgent Medical Question Cardiology - [address] [phone] Tamiko Brooks DNP [address] [place] [address] [phone] Social History Tobacco Use Types Packs/Day Years [...] Progress Notes * Shanell Cedeno L.P.N. - 04/03/2015 1:55 PM EDTFrom: Garo Davis To: Tamiko Brooks DNP,ZARIA Sent: 04/03/2015 1:30 PM EDT Subject: Viagra Vikas Morrison, may I take Viagra ? My and I love each other for over 57 years. It has been two two yrs since we mad love, please help me any possible!!!!thanks documented in this encounter Plan of Treatment Not on file documented as of this encounter Visit Diagnoses Not on filedocumented in this encounter Care Teams Astrophysics Professor Relationship Specialty Start Date End Date Zack Mora MD PCP - General Internal Medicine 05/09/14 03/31/16 Rafael Angeles MD [address] [place] [address] PCP - General Internal Medicine 03/16/20 Rafael Angeles MD [address] [place] [address] PCP - General 04/01/16 03/15/20 Olga Villareal MD [address] [place] [address] 236[address] Specialist Cardiology 07/18/21 Rafy Dawkins PA [address] [place] [address] Specialist Cardiology 07/18/21 05/13/24 Alana Quiñonez, JOVANNA [address] [place] [address] [facility] [place] [address] Cardiology 10/21/23 documented as of this encounter
--- OUTSIDE RECORDS SUMMARY | 2024-11-18 15:00 | XMS_ITS | Clinical Summary ---
Author Organization [facility] Address [address] [place] [address] Care Team Providers Care Wood Room Supervisor Name Role Phone Zack Mora MD Primary Care Provider [phone] Allergies Active Allergy Reactions Criticality Noted Date Comments Peanuts Nausea And Vomiting 08/02/2015 Tallow 05/18/2015 Abdominal pain Medications Medication Sig Dispensed Refills Start Date End Date Status acetaminophen (TYLENOL) 325 MG tablet Take 650 mg by mouth. 0 Active aspirin 81 MG chewable tablet MEAL MILLER 1 T PO D 0 08/02/2019 Active citalopram (CeleXA) 20 MG tablet Take 20 mg by mouth. 0 07/30/2019 Active clorazepate (TRANXENE) 7.5 MG tablet TK 1 T PO BID 0 08/09/2019 Active gabapentin (NEURONTIN) 300 MG capsule TK 1 C PO BID 0 09/07/2019 Active losartan (COZAAR) tablet 50 mg TK 1 T PO D 0 09/07/2019 Active pantoprazole (PROTONIX) 20 MG tablet TK 1 T PO D 0 08/17/2019 Active traMADol (ULTRAM) 50 MG tablet TK 1 T PO Q 6 HOURS PRF PAIN 0 09/08/2019 Active zolpidem (AMBIEN) 5 MG tablet 0 09/22/2019 Active Active Problems Problem Noted Date Diagnosed Date Nontraumatic complete tear of right rotator cuff 09/23/2019 Family History Medical History Relation Name Comments Heart disease Father Heart disease Mother Relation Name Status Comments Father Mother Social History Tobacco Use Types Packs/Day Years Used Date Smoking Tobacco: Unknown Smokeless Tobacco: Never Alcohol Use Standard Drinks/Week Comments No 0 (1 standard drink = 0.6 oz pur e alcohol) Sex and Gender Information Value Date Recorded Sex Assigned at Not on file Gender Identity Not on file Sexual Orientation Not on file Job Start Date Occupation Industry Not on file Not on file Not on file Last Filed Vital Signs Vital Sign Reading Time Taken Comments Blood Pressure - - Pulse - - Temperature - - Respiratory Rate - - Oxygen Saturation - - Inhaled Oxygen Concentration - - Weight 80.7 kg (178 lb) 03/20/2020 12:59 PM EDT Height 170.2 cm (5' 7 ) 03/20/2020 12:59 PM EDT Body Mass Index 27.88 03/20/2020 12:59 PM EDT Plan of Treatment Health Maintenance Due Date Last Done Comments COVID-19 Vaccine (#1) 1941 Depression Screening 1953 Preventative Health Evaluation 1959 DTap / Tdap / Td (1 - Tdap) 02/19/1960 Shingrix-Zoster Vaccine (1 o f 2) 1991 Fall Risk Assessment 2006 RSV Adult > 60+ Yrs or (1 - 1-dose 75+ series) 02/19/2016 Influenza Vaccine (#1) 2024 8, 08/22/2016, 05/12/2015 Pneumococcal Vaccine Completed 03/14/2017, 08/15/2015 Hepatitis B Vaccines Aged Out No long er eligible based on patient's age to complete this topic RSV Ped < 20 months Aged Out No longe r eligible based on patient's age to complete this topic Care Teams Wood Room Supervisor Relationship Specialty Start Date End Date Zack Mora MD [address] [place] [address] [phone] PCP - General Internal Medicine 09/17/19
--- OUTSIDE RECORDS SUMMARY | 2024-11-18 15:00 | XMS_ITS | Encounter Summary ---
Author Organization [place] [address] Care Team Providers Care Straight Knife Machine Cutter Name Role Phone Rafael Angeles MD Primary Care Provider [phone] Reason for Visit * Reason Onset Date Comments GI Problem 11/09/2024 Encounter Details Date Type Department Care Team (Late st Contact Info) Description 11/09/2024 Nurse Triage Adult Medicine [address] [address] Rafael Angeles MD [address] [place] [phone] GI Problem Social History Tobacco Use Types Packs/Day Years [...] Progress Notes * Rama Morales RN - 11/09/2024 11:45 AM EDT He was instructed to go to the ER for further evaluation and treatment. He is in agreement with this plan and states he will go to [facility] in [place]. Reason for Disposition [1] Pain lasts > 10 minutes AND [2] age > 35 AND [3] at least one cardiac risk factor (e.g., diabetes, high cholesterol, hypertension, obesity, smoker or strong family history of heart disease) Answer Assessment - Initial Assessment Questions 1. LOCATION: Where does it hurt? He is complaining of middle abdominal pain 2. RADIATION: Does the pain shoot anywhere else? (e.g., chest, back) No radiation 3. ONSET: When did the pain begin? (Minutes, hours or days ago) Yesterday 4. SUDDEN: Gradual or sudden onset? Sudden 5. PATTERN Does the pain come and go, or is it constant? - If it comes and goes: How long does it last? Do you have pain now? (Note: Comes and goes means the pain is intermittent. It goes away completely between bouts.) - If constant: Is it getting better, staying the same, or getting worse? (Note: Constant means the pain never goes away completely; most serious pain is constant and gets worse.) Constant. He took Pantoprazole, Famotidine and Pepcid 6. SEVERITY: How bad is the pain? (e.g., Scale 1-10; mild, moderate, or severe) - MILD (1-3): Doesn't interfere with normal activities, abdomen soft and not tender to touch. - MODERATE (4-7): Interferes with normal activities or awakens from sleep, abdomen tender to touch. - SEVERE (8-10): Excruciating pain, doubled over, unable to do any normal activities. He rates the pain as 0/10 at this time but states it was 8/10 prior to taking medication. He describes the pain as burning. 7. RECURRENT SYMPTOM: Have you ever had this type of stomach pain before? If Yes, ask: When was the last time? and What happened that time? He has had this pain before and was diagnosed with a duodenal ulcer in the past. 8. CAUSE: What do you think is causing the stomach pain? ? ulcer 9. RELIEVING/AGGRAVATING FACTORS: What makes it better or worse? (e.g., antacids, bending or twisting motion, bowel movement) Antacids improve his symptoms. Nothing makes the pain worse. 10. OTHER SYMPTOMS: Do you have any other symptoms? (e.g., back pain, diarrhea, fever, urination pain, vomiting) No other symptoms. Protocols used: Abdominal Pain - Male-A-, Abdominal Pain - Upper-A-AH * Ralph Dong - 11/09/2024 11:23 AM EDT Patient call requires triage: Symptoms patient is presenting: stomach pain and today was severe. How long has patient had these symptoms?: on and off severe pain 4 days For ALL patients calling to schedule any [...] traveled recently to another state outside of [place], [place], [place], [place], [place], [place], [place]? no o If yes, did you quarantine [...] Payor: [facility] [employer] / Plan: [facility] MED[facility] ADVANTAGE / Product Type: *No Product type* / documented in this encounter Plan of Treatment Upcoming Encounters Date Type Department Care Team (Late st Contact Info) Description 11/22/2024 8:50 AM EDT Office Visit [facility] [address] [facility] [address] [place] [address] Olga Villareal MD [address] [place] [address] 11/23/2024 1:40 PM EDT Consult Gastroenterology - [place] [address] [phone] [place] Zamarripa NP [address] [address] 11/30/2024 11:30 AM EDT Office Visit Adult [address] [phone] Rafael Angeles MD [address] [place] [address] 12/07/2024 12:00 PM EDT Ancillary Procedure [facility] Cardiology [address] [phone] 02/25/2025 11:00 AM EDT Office Visit Adult [address] [phone] Rafael Angeles MD [address] [place] [address] 05/03/2025 2:00 PM EDT Office Visit Pulmonolgy - [address] [phone] Natalia Winston NP [address] [place] [address] 05/23/2025 11:00 AM EDT Ancillary Procedure [facility] Cardiology [address] [phone] documented as of this encounter Visit Diagnoses Not on filedocumented in this encounter Care Teams Straight Knife Machine Cutter Relationship Specialty Start Date End Date Rafael Angeles MD [address] [place] [address] PCP - General Internal Medicine 05/07/14 documented as of this encounter
--- OUTSIDE RECORDS SUMMARY | 2024-11-18 15:00 | XMS_ITS | Encounter Summary ---
Author Organization [facility] Address [address] [place] [address] Care Team Providers Care Sheet Metal Worker Name Role Phone Rafael Angeles MD Primary Care Provider [phone] Olga Villareal MD Unavailable [phone] Alana Quiñonez NP Unavailable [phone] Reason for Visit * Reason Onset Date Comments Mychart Rx Refill 06/12/2024 Encounter Details Date Type Department Care Team Description 06/12/2024 Refill Adult Medicine [address] [phone] Rafael Angeles MD [address] [place] [address] [phone] Mychart Rx Refill Social History Tobacco Use [...] encounter Miscellaneous Notes * Telephone Encounter - Indira Lewis - 06/14/2024 1:36 PM EDT Faxed to pharmacy * Telephone Encounter - Viviana Barrera M.A. - 06/14/2024 9:34 AM EDT Lab Results Component Value Date NA 140 04/09/2024 K 4.0 04/09/2024 CO2 24 04/09/2024 CL 107 04/09/2024 BUN 14 04/09/2024 CREAT 1.11 04/09/2024 GLU 88 04/09/2024 CA 8.6 04/09/2024 GFR 66 04/09/2024 Pending appt 01/25/25 Last appt 05/24/24 documented in this encounter Plan of Treatment Not on file documented as of this encounter Visit Diagnoses Not on filedocumented in this encounter Care Teams Sheet Metal Worker Relationship Specialty Start Date End Date Rafael Angeles MD [address] [place] [address] PCP - General Internal Medicine 03/16/20 Olga Villareal MD [address] [place] [address] Specialist Cardiology 07/18/21 Alana Quiñonez NP [address] [place] [address] [facility] [place] [address] Cardiology 10/21/23 documented as of this encounter
--- OUTSIDE RECORDS SUMMARY | 2024-11-18 15:00 | XMS_ITS | Clinical Summary ---
Author Organization [facility] Address [address] [place] [address] Care Team Providers Care Editing Clerk Name Role Phone Unavailable Primary Care Provider Unavailabl e Source Comments PLEASE NOTE, if this patient is a minor, it may be UNLAWFUL to discuss sensitive information that is contained in these records (such as FAMILY PLANNING, MENTAL HEALTH or SUBSTANCE ABUSE) with the minor patient's parent or other person without the patient's specific authorization.[facility] Social History Tobacco Use Types Packs/Day Years Used Date Smoking Tobacco: Never Assessed Social Connections Answer Date Recorded Social Connections and Isolation 0 04/02/2021 Financial Resource Strain Answer Date R ecorded Financial Resource Strain 0 2020 Stress Answer Date Recorded Stress 0 04/02/2021 Physical Activity Answer Date Recorded Physical Activity 0 04/02/2021 Food Insecurity Answer Date Recorded Food 0 04/02/2021 Transportation Needs Answer Date Record ed Transportation 0 04/02/2021 Housing Stability Answer Date Recorded Housing 0 04/02/2021 Safety and Environment Answer Date Placido rded Safety 0 04/02/2021 Utilities Answer Date Recorded Utilities 0 04/02/2021 Employment Answer Date Recorded Employment 0 04/02/2021 Sex and Gender Information Value Date Recorded Sex Assigned at Not on file Legal Sex Male 9:09 AM PST Gender Identity Not on file Sexual Orientation Not on file Plan of Treatment Not on file
--- OUTSIDE RECORDS SUMMARY | 2024-11-18 15:00 | XMS_ITS | Encounter Summary ---
Author Organization [facility] Address [address] [place] [address] Care Team Providers Care Automobile And Property Underwriter Name Role Phone Rafael Angeles MD Primary Care Provider [phone] Olga Villareal MD Unavailable [phone] Rafy Dawkins Unavailable Alana Quiñonez NP Unavailable [phone] Encounter Details Date Type Department Care Team Description 04/29/2020 Pt. Non Urgent Medical Question Pulmonology - [place] 175 [facility] [address] [place] [address] Randy Monsalve MD 175 [facility] [address] [place] [phone] Social History Tobacco Use Types Packs/Day Years [...] on filedocumented in this encounter Care Teams Automobile And Property Underwriter Relationship Specialty Start Date End Date Rafael Angeles MD [address] [place] [address] PCP - General Internal Medicine 03/16/20 Olga Villareal MD [address] [place] [address] [phone] Specialist Cardiology 07/18/21 Rafy Dawkins PA [address] [place] [address] [phone] Specialist Cardiology 07/18/21 05/13/24 Alana Quiñonez NP [address] [place] [address] [facility] [place] [address] Cardiology 10/21/23 documented as of this encounter
--- OUTSIDE RECORDS SUMMARY | 2024-11-18 15:00 | XMS_ITS | Encounter Summary ---
Author Organization [facility] Address [address] [place] [address] Care Team Providers Care Air Bag Buffer Name Role Phone Rafael Angeles MD Primary Care Provider [phone] Olga Villareal MD Unavailable [phone] Alana Quiñonez NP Unavailable [phone] Encounter Details Date Type Department Care Team Description 06/24/2024 Telephone Triage [address] [place], [place] [phone] Rafael Angeles MD [address] [place] [address] Social History Tobacco Use Types Packs/Day [...] filedocumented in this encounter Care Teams Air Bag Buffer Relationship Specialty Start Date End Date Rafael Angeles MD [address] [place] [address] [phone] PCP - General Internal Medicine 03/16/20 Olga Villareal MD [address] [place] [address] Specialist Cardiology 07/18/21 Alana Quiñonez NP [address] [place] [address] [facility] [place] [address] Cardiology 10/21/23 documented as of this encounter
--- OUTSIDE RECORDS SUMMARY | 2024-11-18 15:01 | XMS_ITS | Encounter Summary ---
Author Organization [facility] Address [address] [place] [address] Care Team Providers Care Supervisor Steel Division Name Role Phone Rafael Angeles MD Primary Care Provider [phone] Rafael Angeles MD Primary Care Provider [phone] Olga Villareal MD Unavailable [phone] Rafy Dawkins Unavailable Alana Quiñonez NP Unavailable [phone] Encounter Details Date Type Department Care Team Description 12/15/2019 Telephone Pulmonology - [place] 175 [facility] [address] [place] [address] Randy Monsalve MD 175 [facility] [address] [place] [address] Social History Tobacco Use Types [...] filedocumented in this encounter Care Teams Supervisor Steel Division Relationship Specialty Start Date End Date Rafael Angeles MD [address] [place] [address] PCP - General Internal Medicine 03/16/20 Rafael Angeles MD [address] [place] [address] PCP - General 04/01/16 03/15/20 Olga Villareal MD [address] [place] [address] [phone] Specialist Cardiology 07/18/21 Rafy Dawkins PA [address] [place] [address] [phone] Specialist Cardiology 07/18/21 05/13/24 Alana Quiñonez, JOVANNA [address] [place] [address] [facility] [place] [address] Cardiology 10/21/23 documented as of this encounter
--- OUTSIDE RECORDS SUMMARY | 2024-11-18 15:01 | XMS_ITS | Encounter Summary ---
Author Organization [facility] Address [address] [place] [address] Care Team Providers Care Marketing Data Specialist Name Role Phone Rafael Angeles MD Primary Care Provider [phone] Rafael Angeles MD Primary Care Provider [phone] Olga Villareal MD Unavailable [phone] Rafy Dawkins Unavailable Alana Quiñonez NP Unavailable [phone] Encounter Details Date Type Department Care Team Description 12/23/2019 [facility] Medical Records [address] [place] [address] Abstract, Provider Social History Tobacco Use Types [...] on filedocumented in this encounter Care Teams Marketing Data Specialist Relationship Specialty Start Date End Date Rafael Angeles MD [address] [place] [address] PCP - General Internal Medicine 03/16/20 Rafael Angeles MD [address] [place] [address] PCP - General 04/01/16 03/15/20 Olga Villareal MD [address] [place] [address] [phone] Specialist Cardiology 07/18/21 Rafy Dawkins PA [address] [place] [address] [phone] Specialist Cardiology 07/18/21 05/13/24 Alana Quiñonez, JOVANNA [address] [place] [address] [facility] [place] [address] Cardiology 10/21/23 documented as of this encounter
--- OUTSIDE RECORDS SUMMARY | 2024-11-18 15:01 | XMS_ITS | Encounter Summary ---
Author Organization [facility] Address [address] [place] [address] Care Team Providers Care Oil Field Laborer Name Role Phone Rafael Angeles MD Primary Care Provider [phone] Olga Villareal MD Unavailable [phone] Rafy Dawkins Unavailable Alana Quiñonez NP Unavailable [phone] Encounter Details Date Type Department Care Team Description 07/20/2021 Telephone [address]io [facility] [address] [address] [facility] [address] [place] [address] [phone] Eve Lazo PA-C Social History Tobacco Use Types Packs/Day [...] have Coronavirus / COVID-19? No / Unsure 07/20/2021 8:42 AM EST documented as of this encounter Miscellaneous Notes * Telephone Encounter - MERY العراقي - 07/23/2021 9:48 AM EST Thank you for the heads up. I'll await the final results. Rafy * Telephone Encounter - Eve Lazo PA-C - 07/20/2021 3:39 PM EST Rafy allison FYAntoni- this pt came for his stress test today. Perhaps some mild ischemia, pending officialread. He had several twinges of chest pain after exercise when he was underneath the camera. He told me his chest pain episodes are different every time. Depending on the final nuclear read, may need uptitration of antianginals documented in this encounter Plan of Treatment Not on file documented as of this encounter Visit Diagnoses Not on filedocumented in this encounter Care Teams Oil Field Laborer Relationship Specialty Start Date End Date Rafael Angeles MD [address] [place] [address] PCP - General Internal Medicine 03/16/20 Olga Villareal MD [address] [place] [address] Specialist Cardiology 07/18/21 Rafy Dawkins PA [address] [place] [address] Specialist Cardiology 07/18/21 05/13/24 Alana Quiñonez, JOVANNA [address] [place] [address] [facility] [place] [address] Cardiology 10/21/23 documented as of this encounter
--- OUTSIDE RECORDS SUMMARY | 2024-11-18 15:01 | XMS_ITS | Encounter Summary ---
Author Organization [facility] Address [address] [place] [address] Care Team Providers Care Bandage Winding Machine Operator Name Role Phone Rafael Angeles MD Primary Care Provider Rafael Angeles MD Primary Care Provider [phone] Olga Villareal MD Unavailable [phone] Rafy Dawkins Unavailable Alana Quiñonez NP Unavailable [phone] Reason for Visit * Reason Onset Date Comments medication problems 12/04/2019 Encounter Details Date Type Department Care Team Description 12/04/2019 Telephone Adult Medicine [address] [phone] Zack Mora MD medication problems Social History [...] Miscellaneous Notes * Telephone Encounter - Ginny Solorio PA-C - 12/06/2019 11:36 AM EDT Signed Advair. Ginny Solorio PA-C * Telephone Encounter - Tammie Samuels M.A. - 12/06/2019 10:49 AM EDT Medication will need to be changed to a covered alternative listed below [place] p [phone] Prior Auth david Samuels M.A. Regional Prior Authorizations Ext [phone] Fax: [phone] [place] [phone] Prior Auth david * Telephone Encounter - Ginny Solorio PA-C - 12/06/2019 10:36 AM EDT Prior auth? Ginny Solorio PA-C * Telephone Encounter - Naren Kuhn C.M.A. - 12/06/2019 10:21 AM EDT Symbicort is not covered, alternative? advairdiskuaer, symbicortaer, or advairhfaaer * Telephone Encounter - Ramon Mccall - 12/04/2019 11:24 AM EDT What is the name of the medication patient is having a problem with?: budesonide-formoterol (SYMBICORT) 80-4.5 MCG/ACT inhaler What is the problem?: insurance will pay for advairdiskuaer, symbicortaer, or advairhfaaer. Please change Is the patient calling about the problem? NO If the patient is not the caller who is? Akanksha gay [place] Is this a NEW medication?: YES How long has the patient been taking this medication? Who prescribed this medication for the patient? Ginny solorio Who is patients PCP?: aZck Mora Payor: JOLIE ELMORE / Plan: JOLIE ELMORE $25/$40 REJI / Product Type: OTHER documented in this encounter Plan of Treatment Not on file documented as of this encounter Visit Diagnoses Not on filedocumented in this encounter Care Teams Bandage Winding Machine Operator Relationship Specialty Start Date End Date Rafael Angeles MD [address] [place] [address] 48541 PCP - General Internal Medicine 03/16/20 Rafael Angeles MD [address] [place] [address] 24206 PCP - General 04/01/16 03/15/20 Olga Villareal MD [address] [place] [address] [phone] Specialist Cardiology 07/18/21 Rafy Dawkins PA [address] [place] [address] 06561 Specialist Cardiology 07/18/21 05/13/24 Alana Quiñonez, JOVANNA [address] [place] [address] Dr [facility] [place] [address] Cardiology 10/21/23 documented as of this encounter
--- OUTSIDE RECORDS SUMMARY | 2024-11-18 15:01 | XMS_ITS | Encounter Summary ---
Author Organization [facility] Address [address] [place] [address] Care Team Providers Care Associate Professor Of Communication Name Role Phone Zack Mora MD Primary Care Provider Unavail able Rafael Angeles MD Primary Care Provider [phone] Rafael Angeles MD Primary Care Provider Olga Villareal MD Unavailable [phone] Rafy Dawkins Unavailable Alana Quiñonez NP Unavailable [phone] Encounter Details Date Type Department Care Team Description 03/06/2015 Refill Adult Medicine [address] [phone] Zack Mora MD Social History Tobacco Use [...] Telephone Encounter - Lorenza Hinkle M.A. - 03/07/2015 8:34 AM EDTFrom: Garo Davis To: Zack Mora MD Sent: 03/06/2015 5:36 PM EDT Subject: Medication Renewal Request Original authorizing provider: MD Garo Nagelalou would like a refill of the following medications: lorazepam (ATIVAN) 1 MG tablet [Zack Mora MD] Preferred pharmacy: [facility] [address] [place] [address] [facility] FAMILIA CEBALLOS Comment: Nitro please! documented in this encounter Plan of Treatment Not on file documented as of this encounter Visit Diagnoses Diagnosis Anxiety- Primary Anxiety state, unspecified documented in this encounter Care Teams Associate Professor Of Communication Relationship Specialty Start Date End Date Zack Mora MD PCP - General Internal Medicine 05/09/14 03/31/16 Rafael Angeles MD [address] [place] [address] 44952 PCP - General Internal Medicine 03/16/20 Rafael Angeles MD [address] [place] [address] 95048 PCP - General 04/01/16 03/15/20 Olga Villareal MD [address] [place] [address] [phone] Specialist Cardiology 07/18/21 Rafy Dawkins PA [address] [place] [address] 43423 Specialist Cardiology 07/18/21 05/13/24 Alana Quiñonez NP [address] [place] [address] Dr [facility] [place] [address] Cardiology 10/21/23 documented as of this encounter
--- OUTSIDE RECORDS SUMMARY | 2024-11-18 15:01 | XMS_ITS | Encounter Summary ---
Author Organization [facility] Address [address] [place] [address] Care Team Providers Care Child Care Development Specialist Name Role Phone Rafael Angeles MD Primary Care Provider [phone] Olga Villareal MD Unavailable [phone] Rafy Dawkins Unavailable Alana Quiñonez NP Unavailable [phone] Encounter Details Date Type Department Care Team Description 01/17/2023 Refill Adult Medicine [address] [phone] Rafael Angeles MD [address] [place] [address] [phone] Social History Tobacco Use Types Packs/Day Years [...] In the last 10 days, have vane wright been in contact with someone who was confirmed or suspected to have Coronavirus/COVID-19? No / Unsure 01/07/2023 2:53 PM EDT documented as of this encounter Miscellaneous Notes * Telephone Encounter - George Garcia M.A. - 01/18/2023 11:25 AM EDT 90 day rx sent 10/08/22 with one refill - mychart message sent to pt documented in this encounter Plan of Treatment Not on file documented as of this encounter Visit Diagnoses Not on filedocumented in this encounter Care Teams Child Care Development Specialist Relationship Specialty Start Date End Date Rafael Angeles MD [address] [place] [address] 05348 PCP - General Internal Medicine 03/16/20 Olga Villareal MD [address] [place] [address] [phone] Specialist Cardiology 07/18/21 Rafy Dawkins PA [address] [place] [address] 44344 Specialist Cardiology 07/18/21 05/13/24 Alana Quiñonez, JOVANNA [address] [place] [address] Dr [facility] [place] [address] Cardiology 10/21/23 documented as of this encounter
--- OUTSIDE RECORDS SUMMARY | 2024-11-18 15:01 | XMS_ITS | Encounter Summary ---
Author Organization [facility] Address [address] [place] [address] Care Team Providers Care Stewardesses Teacher Name Role Phone Rafael Angeles MD Primary Care Provider [phone] Olga Villareal MD Unavailable [phone] Rafy Dawkins Unavailable Alana Quiñonez NP Unavailable [phone] Encounter Details Date Type Department Care Team Description 07/10/2021 Ingredient Specialist Report Medical Records [address] [place] [address] Lyle Pitt MD Social History Tobacco Use [...] have Coronavirus / COVID-19? No / Unsure 06/27/2021 8:23 AM EDT documented as of this encounter Plan of Treatment Not on file documented as of this encounter Visit Diagnoses Not on filedocumented in this encounter Care Teams Stewardesses Teacher Relationship Specialty Start Date End Date Rafael Angeles MD [address] [place] [address] 95703 PCP - General Internal Medicine 03/16/20 Olga Villareal MD [address] [place] [address] [phone] Specialist Cardiology 07/18/21 Rafy Dawkins PA [address] [place] [address] [phone] Specialist Cardiology 07/18/21 05/13/24 Alana Quiñonez NP [address] [place] [address] Dr [facility] [place] [address] Cardiology 10/21/23 documented as of this encounter
--- OUTSIDE RECORDS SUMMARY | 2024-11-18 15:01 | XMS_ITS | Encounter Summary ---
Author Organization [facility] Address [address] [place] [address] Care Team Providers Care Cover Maker Name Role Phone Rafael Angeles MD Primary Care Provider [phone] Rafael Angeles MD Primary Care Provider [phone] Olga Villareal MD Unavailable [phone] Rafy Dawkins Unavailable Alana Quiñonez NP Unavailable [phone] Encounter Details Date Type Department Care Team Description 08/04/2019 Release of Information Medical Records [address] [place] [address] [id number] Abstract, Provider Social History Tobacco Use Types [...] on filedocumented in this encounter Care Teams Cover Maker Relationship Specialty Start Date End Date Rafael Angeles MD [address] [place] [address] 56416 PCP - General Internal Medicine 03/16/20 Rafael Angeles MD [address] [place] [address] 73096 PCP - General 04/01/16 03/15/20 Olga Villareal MD [address] [place] [address] [phone] Specialist Cardiology 07/18/21 Rafy Dawkins PA [address] [place] [address] [phone] Specialist Cardiology 07/18/21 05/13/24 Alana Quiñonez, JOVANNA [address] [place] [address] Dr [facility] [place] [address] Cardiology 10/21/23 documented as of this encounter
--- OUTSIDE RECORDS SUMMARY | 2024-11-18 15:01 | XMS_ITS | Encounter Summary ---
Author Organization [facility] Address [address] [place] [address] Care Team Providers Care Market Research Lead Name Role Phone Rafael Angeles MD Primary Care Provider [phone] Olga Villareal MD Unavailable [phone] Rafy Dawkins Unavailable Alana Quiñonez NP Unavailable [phone] Encounter Details Date Type Department Care Team Description 11/29/2022 Machine Feeder Raw Stock Report Medical Records [address] [place] [address] Lyle Pitt MD Social History Tobacco Use [...] was confirmed or suspected to have Coronavirus/COVID-19? Unable to assess 12/02/2022 8:07 AM EDT documented as of this encounter Plan of Treatment Not on file documented as of this encounter Visit Diagnoses Not on filedocumented in this encounter Care Teams Market Research Lead Relationship Specialty Start Date End Date Rafael Angeles MD [address] [place] [address] 61808 PCP - General Internal Medicine 03/16/20 Olga Villareal MD [address] [place] [address] [phone] Specialist Cardiology 07/18/21 Rafy Dawkins PA [address] [place] [address] [phone] Specialist Cardiology 07/18/21 05/13/24 Alana Quiñonez NP [address] [place] [address] Dr [facility] [place] [address] Cardiology 10/21/23 documented as of this encounter
--- OUTSIDE RECORDS SUMMARY | 2024-11-18 15:01 | XMS_ITS | Encounter Summary ---
Author Organization [facility] Address [address] [place] [address] Care Team Providers Care Bulk Sealer Name Role Phone Zack Mora MD Primary Care Provider Unavail able Rafael Angeles MD Primary Care Provider [phone] Rafael Angeles MD Primary Care Provider Olga Villareal MD Unavailable [phone] Rafy Dawkins Unavailable Alana Quiñonez NP Unavailable [phone] Encounter Details Date Type Department Care Team Description 12/18/2014 Pt. Non Urgent Medic al Question Adult Medicine [address] [phone] Zack Mora MD Social History Tobacco Use [...] as of this encounter Progress Notes * Christina Flower L.P.N. - 12/19/2014 8:44 AM EDTFrom: Garo Davis To: Zack Mora MD Sent: 12/18/2014 6:17 AM EDT Subject: Abdomminal Pain For the record Sat night I had another attack at 8:00 P.M.----My stomach was in severe pain for thirty minutes, I took a 40mg omerprezole and Milanta. I have a ultrasound scheduled for this problem January 04. No need to call. Thank You documented in this encounter Plan of Treatment Not on file documented as of this encounter Visit Diagnoses Not on filedocumented in this encounter Care Teams Bulk Sealer Relationship Specialty Start Date End Date Zack Mora MD PCP - General Internal Medicine 05/09/14 03/31/16 Rafael Angeles MD [address] [place] [address] 90980 PCP - General Internal Medicine 03/16/20 Rafael Angeles MD [address] [place] [address] 69473 PCP - General 04/01/16 03/15/20 Olga Villareal MD [address] [place] [address] 71712 Specialist Cardiology 07/18/21 Rafy Dawkins PA [address] [place] [address] [phone] Specialist Cardiology 07/18/21 05/13/24 Alana Quiñonez, JOVANNA [address] [place] [address] Dr [facility] [place] [address] Cardiology 10/21/23 documented as of this encounter
--- OUTSIDE RECORDS SUMMARY | 2024-11-18 15:01 | XMS_ITS | Encounter Summary ---
Author Organization [facility] Address [address] [place] [address] Care Team Providers Care Rock Star Name Role Phone Rafael Angeles MD Primary Care Provider [phone] Rafael Angeles MD Primary Care Provider [phone] Olga Villareal MD Unavailable [phone] Rafy Dawkins Unavailable Alana Quiñonez NP Unavailable [phone] Encounter Details Date Type Department Care Team Description 10/08/2019 [facility] Medical Records [address] [place] [phone] Abstract, Provider Social History Tobacco Use Types [...] on filedocumented in this encounter Care Teams Rock Star Relationship Specialty Start Date End Date Rafael Angeles MD [address] [place] [address] 41369 PCP - General Internal Medicine 03/16/20 Rafael Angeles MD [address] [place] [address] 02463 PCP - General 04/01/16 03/15/20 Olga Villarela MD [address] [place] [address] [phone] Specialist Cardiology 07/18/21 Rafy Dawkins PA [address] [place] [address] [phone] Specialist Cardiology 07/18/21 05/13/24 Alana Quiñonez, JOVANNA [address] [place] [address] Dr [facility] [place] [address] Cardiology 10/21/23 documented as of this encounter
--- OUTSIDE RECORDS SUMMARY | 2024-11-18 15:01 | XMS_ITS | Encounter Summary ---
Author Organization [facility] Address [address] [place] [address] Care Team Providers Care Preboarder Name Role Phone Rafael Angeles MD Primary Care Provider [phone] Olga Villareal MD Unavailable [phone] Rafy Dawkins Unavailable Alana Quiñonez NP Unavailable [phone] Reason for Visit * Reason Comments E-prescribe Rx Request Encounter Details Date Type Department Care Team Description 07/25/2022 Refill Adult Medicine [address] [phone] Kameron Nye, PAAidaC [address] [place] [address] [phone] E-prescribe Rx Request Social History Tobacco Use [...] suspected to have Coronavirus/COVID-19? No / Unsure 07/22/2022 8:53 AM EST documented as of this encounter Miscellaneous Notes * Telephone Encounter - Nabil Samuel - 07/26/2022 3:23 PM EST Patient would like script to be: E-PRESCRIBED/FAXED TO PHARMACY ?? WHEN WAS THE PATIENT'S LAST APPOINTMENT IN ADULT MEDICINE? 06/18/22 ?? WHEN WAS THE LAST TIME THE PATIENT SAW THEIR PCP? 01/17/22 ?? Does patient have an upcoming appointment? Yes 09/26/2022 ?? (THE MEDICATION REQUESTED IS ON THE MED LIST ABOVE) All of the medications requested were on the CURRENT MEDS list ?? Did you check the Pharmacy information above?: YES ?? Patient wants: 30 -day supply ?? Is this a mail order prescription request ? NO ?? If the refill is from a FAXED refill request what is the RX # listed on the fax? N/A ?? Patients current insurance carrier is: Payor: [email or web address] / Plan: JOLIE [employer] $0 REJI / Product Type: OTHER ?? documented in this encounter Plan of Treatment Not on file documented as of this encounter Visit Diagnoses Not on filedocumented in this encounter Care Teams Preboarder Relationship Specialty Start Date End Date Rafael Angeles MD [address] [place] [address]1020 PCP - General Internal Medicine 03/16/20 Olga Villareal MD [address] [place] [address] 01020 Specialist Cardiology 07/18/21 Rafy Dawkins PA [address] [place] [address] 01020 Specialist Cardiology 07/18/21 05/13/24 Alana Quiñonez NP [address] [place] [address] Dr Adhikari [facility] [place] [address] Cardiology 10/21/23 documented as of this encounter
--- OUTSIDE RECORDS SUMMARY | 2024-11-18 15:01 | XMS_ITS | Encounter Summary ---
Author Organization [facility] Address [address] [place] [address] Care Team Providers Care Cooling Tower Technician Name Role Phone Rafael Angeles MD Primary Care Provider [phone] Rafael Angeles MD Primary Care Provider [phone] Olga Villareal MD Unavailable [phone] Rafy aDwkins Unavailable Alana Quiñonez NP Unavailable [phone] Encounter Details Date Type Department Care Team Description 10/18/2019 Orders Only Adult Medicine [address] [phone] Zack Mora MD Preoperative examination; Screening for deficiency anemia; skilled nursing current use of anticoagulant therapy Social History Tobacco Use Types Packs/Day Years [...] documented as of this encounter Results * THROMBOPLASTIN TIME, PARTIAL (03/20/2020 10:39 AM EDT) Partial Thromboplastin Time 27.6 24.1 - 39.3 sec 03/20/2020 12:36 PM EDT [facility] 03/20/2020 10:3 9 AM EDT 03/20/2020 10:43 AM EDT Zack Mora MD LAB Performing Organization Address City/[facility]/ZIP Co de Phone Number [facility] * PROTHROMBIN TIME (03/20/2020 10:39 AM EDT) Prothrombin Time 12.2 10.6 - 13.9 SEC 03/20/2020 12:36 PM EDT [facility] INR 1.04 03/20/2020 12:36 PM EDT [facility] 03/20/2020 10:3 9 AM EDT 03/20/2020 10:43 AM EDT Zack Mora MD LAB Performing Organization Address [facility] Co de Phone Number [facility] * COMPREHENSIVE METABOLIC PANEL (03/20/2020 10:39 AM EDT) GLUCOSE 96 70 - 100 mg/dL 03/20/2020 3:24 PM EDT [facility] Comment:Reference range appl icable to fasting specimens only Blood Urea Nitrogen 19 5 - 25 mg/dL 03/20/2020 3:24 PM EDT [facility] CREAT 0.84 0.7 - 1.3 mg/dL 03/20/2020 3:24 PM EDT [facility] GLOMERULAR FILTRATION RATE > 60 03/20/2020 3:24 PM EDT [facility] Comment: If patient is -Lebanese, multiply result by 1.21 Chronic Kidney Disease: < 60 ml/min/1.73 square meters Kidney Failure: < 15 ml/min/1.73 square meters NA 138 135 - 145 mEq/L 03/20/2020 3:24 PM EDT [facility] K 4.3 3.5 - 5.5 mmol/L 03/20/2020 3:24 PM EDT [facility] CL 107 96 - 110 mmol/L 03/20/2020 3:24 PM EDT [facility] CARBON DIOXIDE (CO2) 28 21 - 32 mmol/L 03/20/2020 3:24 PM EDT [facility] ANION GAP 3 3 - 11 03/20/2020 3:24 PM EDT [facility] CALCIUM 8.7 8.5 - 10.5 mg/dL 03/20/2020 3:24 PM EDT [facility] TOTAL PROTEIN (TP) 6.9 6.0 - 8.0 G/dL 03/20/2020 3:24 PM EDT [facility] Albumin 3.9 3.2 - 5.0 G/dL 03/20/2020 3:24 PM EDT [facility] BILIRUBIN TOTAL 0.6 0.0 - 1.4 mg/dL 03/20/2020 3:24 PM EDT [facility] SGOT 23 10 - 42 U/L 03/20/2020 3:24 PM EDT [facility] SGPT 24 10 - 60 U/L 03/20/2020 3:24 PM EDT [facility] ALK PHOS 82 42 - 121 U/L 03/20/2020 3:24 PM EDT [facility] 03/20/2020 10:3 9 AM EDT 03/20/2020 10:43 AM EDT Zack Mora MD LAB [facility] * (ABNORMAL) CBC (AUTO DIFF PLATELET) (03/20/2020 10:39 AM EDT) WHITE BLOOD COUNT 7.4 4.8 - 10.8 x10-3/uL 03/20/2020 12:38 PM EDT [facility] RED BLOOD COUNT 5.0 4.5 - 5.5 x10-6/uL 03/20/2020 12:38 PM EDT [facility] Hemoglobin 13.0(L) 13.5 - 17.5 g/dL 03/20/2020 12:38 PM EDT [facility] Hematocrit 42.5 42 - 54 % 03/20/2020 12:38 PM EDT [facility] MEAN CORPUSCULAR VOLUME 85.0 79 - 98 fL 03/20/2020 12:38 PM EDT [facility] MEAN CORPUSCULAR HEMOGLOBIN 26.0(L) 27 - 32 pg 03/20/2020 12:38 PM EDT [facility] MEAN CORPUSCULAR HGB CONC 30.6(L) 32 - 37 g/dL 03/20/2020 12:38 PM EDT [facility] RED CELL DISTRIBUTION WIDTH 14.6 11 - 15 % 03/20/2020 12:38 PM EDT [facility] PLT COUNT 238 130 - 400 x10-3/uL 03/20/2020 12:38 PM EDT [facility] MEAN PLATELET VOLUME 12.2(H) 7 - 11 fL 03/20/2020 12:38 PM EDT [facility] NRBC % AUTO 0.0 <1 % 03/20/2020 12:38 PM EDT [facility] NEUTROPHILS % 74.7 % 03/20/2020 12:38 PM EDT [facility] LYMPH % 13.2 % 03/20/2020 12:38 PM EDT [facility] MONO % 7.3 % 03/20/2020 12:38 PM EDT [facility] EOS % 3.1 % 03/20/2020 12:38 PM EDT [facility] BASO % 1.4 % 03/20/2020 12:38 PM EDT [facility] IMMATURE GRANULOCYTES % 0.3 % 03/20/2020 12:38 PM EDT [facility] NRBC # AUTO 0.00 <0.1 x10-3/uL 03/20/2020 12:38 PM EDT [facility] NEUT # 5.49 1.5 - 7.0 x10-3/uL 03/20/2020 12:38 PM EDT [facility] LYMPH # 0.97(L) 1 - 5.0 x10-3/uL 03/20/2020 12:38 PM EDT [facility] MONO # 0.54 0.2 - 1.0 x10-3/uL 03/20/2020 12:38 PM EDT [facility] EOS # 0.23 0 - 0.5 x10-3/uL 03/20/2020 12:38 PM EDT [facility] BASO # 0.10 0 - 0.2 x10-3/uL 03/20/2020 12:38 PM EDT [facility] IMMATURE GRANULOCYTES # 0.02 0 - 0.03 x10-3/uL 03/20/2020 12:38 PM EDT [facility] 03/20/2020 10:3 9 AM EDT 03/20/2020 10:43 AM EDT Zack Mora MD LAB ERNESTO NIEVES documented in this encounter Visit Diagnoses Diagnosis Preoperative examination Preoperative examination, unspecified Screening for deficiency anemia Screening for other and unspecified deficiency anemia terminal carman current use of anticoagulant therapy documented in this encounter Care Teams Cooling Tower Technician Relationship Specialty Start Date End Date Rafael Angeles MD [address] [place] [address] 76469 PCP - General Internal Medicine 03/16/20 Rafael Angeles MD [address] [place] [address] 33275 PCP - General 04/01/16 03/15/20 Olga Villareal MD [address] [place] [address] 72967 Specialist Cardiology 07/18/21 Rafy Dawkins PA [address] [place] [address] 66559 Specialist Cardiology 07/18/21 05/13/24 Alana Quiñonez NP [address] [place] [address] [facility] [place] [address] Cardiology 10/21/23 documented as of this encounter
--- OUTSIDE RECORDS SUMMARY | 2024-11-18 15:01 | XMS_ITS | Encounter Summary ---
Author Organization [facility] Address [address] [place] [address] Care Team Providers Care Social Science Instructor Name Role Phone Rafael Angeles MD Primary Care Provider [phone] Olga Villareal MD Unavailable [phone] Rafy Dawkins Unavailable Alana Quiñonez NP Unavailable [phone] Encounter Details Date Type Department Care Team Description 08/27/2021 [facility] Medical Records [address] [place] [address] Social History Tobacco Use Types Packs/Day Years [...] Date/Time Associated Diagnosis Comments OUTSIDE EKG Routine 08/27/[address] Routine 08/27/2021 OUTSIDE LAB Routine 08/27/2021 documented in this encounter Results * OUTSIDE CT (08/27/2021) Provider Abstract RADIOLOGY * OUTSIDE LAB (08/27/2021) Provider Abstract LAB * OUTSIDE EKG (08/27/2021) Provider Abstract CARDIOLOGY documented in this encounter Visit Diagnoses Not on filedocumented in this encounter Care Teams Social Science Instructor Relationship Specialty Start Date End Date Rafael Angeles MD [address] [place] [address] [phone] PCP - General Internal Medicine 03/16/20 Olga Villareal MD [address] [place] [address] [phone] Specialist Cardiology 07/18/21 Rafy Dawkins PA [address] [place] [address] [phone] Specialist Cardiology 07/18/21 05/13/24 Alana Quiñonez, JOVANNA [address] [place] [address] [facility] [place] [address] Cardiology 10/21/23 documented as of this encounter
--- OUTSIDE RECORDS SUMMARY | 2024-11-18 15:01 | XMS_ITS | Encounter Summary ---
Author Organization [facility] Address [address] [place] [address] Care Team Providers Care Sanding Machine Operator Or Tender Name Role Phone Rafael Angeles MD Primary Care Provider Rafael Angeles MD Primary Care Provider [phone] Olga Villareal MD Unavailable [phone] Rafy Dawkins Unavailable Alana Quiñonez NP Unavailable [phone] Encounter Details Date Type Department Care Team Description 09/30/2019 [facility] Medical Records [address] [place] [address] Erin Trevino Social History Tobacco Use Types Packs/Day Years [...] on filedocumented in this encounter Care Teams Sanding Machine Operator Or Tender Relationship Specialty Start Date End Date Rafael Angeles MD [address] [place] [address] [phone] PCP - General Internal Medicine 03/16/20 Rafael Angeles MD [address] [place] [address] 07635 PCP - General 04/01/16 03/15/20 Olga Villareal MD [address] [place] [address] [phone] Specialist Cardiology 07/18/21 Rafy Dawkins PA [address] [place] [address] [phone] Specialist Cardiology 07/18/21 05/13/24 Alana Quiñonez NP [address] [place] [address] [facility] [place] [address] Cardiology 10/21/23 documented as of this encounter
--- OUTSIDE RECORDS SUMMARY | 2024-11-18 15:01 | XMS_ITS | Encounter Summary ---
Author Organization [facility] Address [address] [place] [address] Care Team Providers Care Hand Touch Up Painter Name Role Phone Rafael Angeles MD Primary Care Provider [phone] Olga Villareal MD Unavailable [phone] Rafy Dawkins Unavailable Alana Quiñonez NP Unavailable [phone] Reason for Visit * Reason Onset Date Comments other 07/11/2021 chest pain? Encounter Details Date Type Department Care Team Description 07/11/2021 Telephone Cardio PVC POC 154 [address] [facility] [address] [place] [address] Olga Villareal MD [address] [place] [address] [phone] other (chest pain?) Social History Tobacco Use Types Packs/Day Years [...] Notes * Telephone Encounter - Talia Sierra - 07/12/2021 9:15 AM EST Please see JOHN orders for nuc ett. * Telephone Encounter - Talia Sierra - 07/12/2021 9:12 AM EST I reviewed JOHN response 07/12/21 @ 737am. And patient verbalized understanding. * Telephone Encounter - MERY العراقي - 07/12/2021 7:49 AM EST Morning, please schedule for nuclear stress test. Thanks. Randy?? * Telephone Encounter - MERY العراقي - 07/12/2021 7:37 AM EST Good morning, please let the patient know that I will set him up for a nuclear stress test to reassess for ischemia in his heart. We can try increasing his isosorbide to 90 mg once a day. I have hereon his med rec, isosorbide 60 mg, suggest advised him to take 1-1/2 tablets. Hopefully this will provide the desired effect. In the meantime go over the use of sublingual nitroglycerin and when to present to the emergency room. Also advised him to follow the advice of Dr. Hill from cardiothoracic surgery and continue close follow-up with them. Please advise him to monitor his blood pressure at home and to call us if he gets consistent readings above 130/80. Please have him call us in 2 weeks to let us know how he is doing as far as his CP and BPs. If he is still having sx will consider starting him on low dose beta mayra. Thanks. Randy?? * Telephone Encounter - Talia Sierra - 07/11/2021 9:03 AM EST Asymptomatic now. Patient called to update JOHN . He has experienced uncomfortable L sided, non radiating cp described as Sharp dull like a knife pain lasting under 5 minutes rated as 8/10 but as mentioned resolves within 5 minutes. occurring 07/04, 07/06, 07/07, 07/10 . ~6 mo ago he took a total of 2 nitro With relief. I advised if he has cp requiring use of nitro , would take nitro Q 5 min with maxof 3 doses. If no relief after taking 3rd nitro to call 911. He [address] Pitt yesterday and states Dr. Pitt was faxing over his ov note. Per patient, cat scan showed AAA measured at 5.1. And states was advised by Dr. Pitt not to lift anything heavy, not to get BP elevated because AAA could tear and not rupture. Patient cares for who is bed bound but is trying to get family to assist as well as has a EXHIBITIONS AND COLLECTIONS MANAGER for a.m. care for . Patient reports he also is being scheduled for a Cat Scan in 12/21 with dye. * Telephone Encounter - Oracio Mckeon - 07/11/2021 8:39 AM EST Patient is calling stating he was told by JOHN to call in 2 weeks if he was still experiencing chest pain, patient states he has felt chest pain yesterday 07/10/21 and previous days before. Please call patient at [phone]. documented in this encounter Plan of Treatment Not on file documented as of this encounter Results * NUCLEAR STRESS WITH EXERCISE, REGADENOSON, OR DOBUTAMINE PER PROTOCOL (07/20/2021) Impressions [facility] - 07/20/2021 [facility] [address] [facility], [place] [address], [place] [address] TEL: ??FAX: Name: Garo Davis ? Date of exam: 07/20/21 : 1940 ?Gender: Male ? Ordering provider: Rafy Dawkins PA-C PCP: ??Rafael Angeles Blood pressure (!) 146/82, pulse 73, height 5' 8 (1.727 m), weight 187 lb (84.8 kg), SpO2 97 %. Body mass index is 28.43 kg/m??. TEST TYPE: Exercise Nuclear Stress Test Performed by: Eve Lazo PA-C INDICATION/HISTORY: CAD with resting chest pain CARDIAC RISK FACTORS: Known CAD, Hypertension, Tobacco use - Prior and Positive family history premature CAD PRIOR CARDIAC EVENTS: Microvascular CAD, paroxysmal afib, thoracic aortic aneurysm repain TECHNIQUE: One minute prior to the cessation of treadmill exercise on an Accelerated Modified Gomez Protocol, patient received ??30.5mCi of IV Tc 99m Tetrofosmin for stress SPECT imaging with gated SPECT acquisition at 30 min ??post exercise. Rest SPECT imaging with ??10.5mCi of IV.Tc 99m Tetrofosmin was performed. ?? Computerized reconstruction of the images was performed for analysis. CT imaging was performed for attenuation correction purposes only STRESS TEST: On nitrates. The patient exercised for 4 minutes and 45 seconds on a Accelerated Modified Gomez protocol (1.7 mph and 10% grade) ??achieving a peak heart rate of 129 BPM which is 92 % MPHR for the patient's age. Symptoms: The patient experienced dyspnea during the exercise protocol. ??No chest pain during the exercise protocol. Functional Capacity: Average for age and gender ( 4.6 METS). Hemodynamic response: Physiologic Resting BP: 146/82 with a HR of: 80bpm. ?? Maximum BP: 170/72 with HR of: 129bpm. O2 sat: 97% Baseline ECG: Normal sinus rhythm, anterior Q waves Stress ECG: No diagnostic ECG changes for ischemia Arrhythmias: Rare PACs Test terminated due to: Dyspnea SCAN FINDINGS: Nuclear imaging of the left ventricle reveals normal cavity size at stress, no change with rest imaging. Myocardial perfusion imaging of the left ventricle revealed a small in size and mild in intensity fixed perfusion defect in the basal to apical inferior wall. CT attenuation correction was applied to the study which corrects the previously mentioned perfusion abnormality Gated SPECT imaging was performed which demonstrated normal LV function and thickening with a calculated LVEF of 72 % IMPRESSION: 1. ??Probably normal. ??Probably normal exercise nuclear stress test. 2. Patient achieved 92% of the Max predicted heart rate 3. Average functional capacity for age and gender 4. No chest pain during the exercise protocol. ??The patient did experience dyspnea during the exercise protocol. 5. No ischemic ECG changes with exercise 6. Myocardial perfusion imaging of the left ventricle revealed a small in size and mild in intensity fixed perfusion defect in the basal to apical inferior wall which is likely due to a diaphragmatic attenuation artifact given the raw images, normal wall motion observed in the inferior wall, and that the perfusion defect is corrected when attenuation correction is applied. ??No other reversible or fixed perfusion defects to suggest ischemia or infarct. 7. TID was normal (1.02). 8. Gated images revealed normal LV wall motion and thickening; with a normal LV systolic function (LVEF 72%). Electronically Signed By: Lyle Palma MD 07/23/2021 2:56 PM Electronically Signed By: Lyle Palma MD 07/23/2021 2:55 PM [facility] documented in this encounter Visit Diagnoses Diagnosis Coronary artery disease involving ramona coronary artery of ramona heart without angina pectoris Essential hypertension Unspecified essential hypertension Coronary artery disease involving ramona coronary artery of ramona heart without angina pectoris Essential hypertension Unspecified essential hypertension documented in this encounter Care Teams Hand Touch Up Painter Relationship Specialty Start Date End Date Rafael Angeles MD [address] [place] [address] [phone] PCP - General Internal Medicine 03/16/20 Olga Villareal MD [address] [place] [address] [phone] Specialist Cardiology 07/18/21 Rafy Dawkins PA [address] [place] [address] [phone] Specialist Cardiology 07/18/21 05/13/24 Alana Quiñonez, JOVANNA [address] [place] [address] [facility] [place] [address] Cardiology 10/21/23 documented as of this encounter
--- OUTSIDE RECORDS SUMMARY | 2024-11-18 15:01 | XMS_ITS | Encounter Summary ---
Author Organization [employer] [facility] Address [address] [place] [address] Care Team Providers Care Parachute Taper Name Role Phone Rafael Angeles MD Primary Care Provider [phone] Rafael Angeles MD Primary Care Provider [phone] Olga Villareal MD Unavailable [phone] Rafy Dawkins Unavailable Alana Quiñonez NP Unavailable [phone] Encounter Details Date Type Department Care Team Description 11/10/2019 Alumni Secretary Report Medical Records [address] [place] [address] Tamiko Brooks DNP [address] [place] [address] [phone] Social History Tobacco Use Types Packs/Day Years [...] on filedocumented in this encounter Care Teams Parachute Taper Relationship Specialty Start Date End Date Rafael Angeles MD [address] [place] [address] PCP - General Internal Medicine 03/16/20 Rafael Angeles MD [address] [place] [address] PCP - General 04/01/16 03/15/20 Olga Villareal MD [address] [place] [address] Specialist Cardiology 07/18/21 Rafy Dawkins PA [address] [place] [address]20 Specialist Cardiology 07/18/21 05/13/24 Alana Quiñonez, JOVANNA [address] [place] [address] [facility] [place] [address] Cardiology 10/21/23 documented as of this encounter
--- OUTSIDE RECORDS SUMMARY | 2024-11-18 15:01 | XMS_ITS | Encounter Summary ---
Author Organization [facility] Address [address] [place] [address] Care Team Providers Care Rod Greaser Name Role Phone Rafael Angeles MD Primary Care Provider [phone] Rafael Angeles MD Primary Care Provider Olga Villareal MD Unavailable [phone] Rafy Dawkins Unavailable Alana Quiñonez NP Unavailable Encounter Details Date Type Department Care Team Description 11/03/2019 Orders Only Pulmonology [address] [place] [address] Randy Monsalve MD [address] [address] ANTONY and COPD overlap syndrome (HCC) Social History Tobacco Use Types Packs/Day Years [...] Procedure Name Priority Date/Time Associated Diagnosis Comments CHG RADIOLOGIC EXAM CHEST 2 VIEWS Routine 11/01/2019 ANTONY and COPD overlap syndrome (HCC) documented in this encounter Results * RADIOLOGIC EXAM CHEST 2 VIEWS (11/01/2019) Randy Monsalve MD RADIOLOGY [facility] [address] [place] [address] documented in this encounter Visit Diagnoses Diagnosis ANTONY and COPD overlap syndrome (HCC) documented in this encounter Care Teams Rod Greaser Relationship Specialty Start Date End Date Rafael Angeles MD [address] [place] [address] [phone] PCP - General Internal Medicine 03/16/20 Rafael Angeles MD [address] [place] [address] PCP - General 04/01/16 03/15/20 Olga Villareal MD [address] [place] [address] [phone] Specialist Cardiology 07/18/21 Rafy Dawkins PA [address] [place] [phone] Specialist Cardiology 07/18/21 05/13/24 Alana Quiñonez, JOVANNA [address] [place] [address] [facility] [place] [address] Cardiology 10/21/23 documented as of this encounter
--- OUTSIDE RECORDS SUMMARY | 2024-11-18 15:01 | XMS_ITS | Encounter Summary ---
Author Organization [facility] [employer] [facility] Address [address] [place] [address] Care Team Providers Care Automobile Rental Agent Name Role Phone Rafael Angeles MD Primary Care Provider [phone] Olga Villareal MD Unavailable [phone] Rafy Dawkins Unavailable Alana Quiñonez NP Unavailable Encounter Details Date Type Department Care Team Description 02/09/2023 Refill Adult Medicine [address] [phone] Rafael Angeles MD [address] [place] [address] [phone] Social History Tobacco Use Types Packs/Day Years [...] Telephone Encounter - George Garcia M.A. - 02/09/2023 11:51 AM EDT Last ov 01/07/23 next ov 04/21/23 Lab Results Component Value Date NA 139 01/07/2023 K 4.1 01/07/2023 CO2 27 01/07/2023 CL 107 01/07/2023 BUN 23 01/07/2023 CREAT 0.87 01/07/2023 GLU 101 01/07/2023 CA 8.5 01/07/2023 GFR 87 01/07/2023 Lab Results Component Value Date ALB 3.7 01/17/2022 SGOT 33 01/17/2022 SGPT 29 01/17/2022 TBILI 0.5 01/17/2022 ALKPHOS 76 01/17/2022 TP 6.6 01/17/2022 documented in this encounter Plan of Treatment Not on file documented as of this encounter Visit Diagnoses Not on filedocumented in this encounter Care Teams Automobile Rental Agent Relationship Specialty Start Date End Date Rafael Angeles MD [address] [place] [address] [phone] PCP - General Internal Medicine 03/16/20 Olga Villareal MD [address] [place] [address] [phone] Specialist Cardiology 07/18/21 Rafy Dawkins PA [address] [place] [address] [phone] Specialist Cardiology 07/18/21 05/13/24 Alana Quiñonez, JOVANNA [address] [place] [address] [facility] [place] [address] Cardiology 10/21/23 documented as of this encounter
--- OUTSIDE RECORDS SUMMARY | 2024-11-18 15:01 | XMS_ITS | Encounter Summary ---
Author Organization [facility] Address [address] [place] [address] Care Team Providers Care Waybill Clerk Name Role Phone Rafael Angeles MD Primary Care Provider [phone] Rafael Angeles MD Primary Care Provider [phone] Olga Villareal MD Unavailable [phone] Rafy Dawkins Unavailable Alana Quiñonez NP Unavailable [phone] Encounter Details Date Type Department Care Team Description 11/07/2019 Pt. Non Urgent Medic al Question Physiatry - [place] [address] [place] [address] Pantera Robertson PA-C Social History Tobacco [...] on filedocumented in this encounter Care Teams Waybill Clerk Relationship Specialty Start Date End Date Rafael Angeles MD [address] [place] [address] PCP - General Internal Medicine 03/16/20 Rafael Angeles MD [address] [place] [address]20 PCP - General 04/01/16 03/15/20 Olga Villareal MD [address] [place] [address]20 Specialist Cardiology 07/18/21 Rafy Dawkins PA [address] [place] [address]1020 Specialist Cardiology 07/18/21 05/13/24 Alana Quiñonez, JOVANNA [address] [place] [address] [facility] [place] [address] Cardiology 10/21/23 documented as of this encounter
--- OUTSIDE RECORDS SUMMARY | 2024-11-18 15:01 | XMS_ITS | Encounter Summary ---
Author Organization [facility] [facility] Address [address] [place] [address] Care Team Providers Care Radiation Control Health Physicist Name Role Phone Rafael Angeles MD Primary Care Provider [phone] Olga Villareal MD Unavailable [phone] Rafy Dawkins Unavailable Alana Quiñonez NP Unavailable [phone] Encounter Details Date Type Department Care Team Description 06/25/2021 Pt. Non Urgent Medical Question Pulmonology - [place] [address] [facility] [address] [place] [address] Natalia Winston APRN [address] [facility] [address] [place] [address] Social History Tobacco Use Types [...] encounter Miscellaneous Notes * Telephone Encounter - Blank Reddy - 06/26/2021 3:13 PM EDT Spoke with pt. Pt stated he will wait until Friday to go into [facility] to see if his insurance will cover or else he will have to pay 25%. I let pt know the Spiriva and Ellipta was sent yesturday. Pt received the Prednisone already. documented in this encounter Plan of Treatment Not on file documented as of this encounter Visit Diagnoses Not on filedocumented in this encounter Care Teams Radiation Control Health Physicist Relationship Specialty Start Date End Date Rafael Angeles MD [address] [place] [phone] PCP - General Internal Medicine 03/16/20 Olga Villareal MD [address] [place] [address] [phone] Specialist Cardiology 07/18/21 Rafy Dawkins PA [address] [place] [address] [phone] Specialist Cardiology 07/18/21 05/13/24 Alana Quiñonez, JOVANNA [address] [place] [address] [facility] [place] [address] Cardiology 10/21/23 documented as of this encounter
--- OUTSIDE RECORDS SUMMARY | 2024-11-18 15:01 | XMS_ITS | Encounter Summary ---
Author Organization [facility] Address [address] [place] [address] Care Team Providers Care Aircraft Captain Name Role Phone Rafael Angeles MD Primary Care Provider [phone] Olga Villareal MD Unavailable [phone] Rafy Dawkins Unavailable Alana Quiñonez NP Unavailable [phone] Encounter Details Date Type Department Care Team Description 07/03/2021 Pt. Non Urgent Medic al Question Physiatry - [address] [phone] Pantera Robertson PA-C Social History Tobacco Use [...] on filedocumented in this encounter Care Teams Aircraft Captain Relationship Specialty Start Date End Date Rafael Angeles MD [address] [place] [address] PCP - General Internal Medicine 03/16/20 Olga Villareal MD [address] [place] [address] [phone] Specialist Cardiology 07/18/21 Rafy Dawkins PA [address] [place] [address] [phone] Specialist Cardiology 07/18/21 05/13/24 Alana Quiñonez, JOVANNA [address] [place] [address] [facility] [place] [address] Cardiology 10/21/23 documented as of this encounter
--- OUTSIDE RECORDS SUMMARY | 2024-11-18 15:01 | XMS_ITS | Encounter Summary ---
Author Organization [facility] Address [address] [place] [address] Care Team Providers Care Sprinkling System Irrigator Name Role Phone Rafael Angeles MD Primary Care Provider Olga Villareal MD Unavailable [phone] Rafy Dawkins Unavailable Alana Quiñonez NP Unavailable [phone] Reason for Visit * Reason Onset Date Comments Faxed Refill 06/21/2021 Encounter Details Date Type Department Care Team Description 06/21/2021 Refill Pulmonology - [place] [address] [facility] [address] [place] [address] Natalia Winston APRN [address] [facility] [address] [place] [address] Faxed Refill Social History Tobacco Use Types Packs/Day [...] have Coronavirus / COVID-19? No / Unsure 06/21/2021 8:21 AM EDT documented as of this encounter Miscellaneous Notes * Telephone Encounter - Rhiannon Marroquin - 06/21/2021 12:14 PM EDT Benedict 06/21/21 Nov 09/12/21 documented in this encounter Plan of Treatment Not on file documented as of this encounter Visit Diagnoses Diagnosis Chronic obstructive pulmonary disease, unspecified COPD type (HCC) documented in this encounter Care Teams Sprinkling System Irrigator Relationship Specialty Start Date End Date Rafael Angeles MD [address] [place] [address] PCP - General Internal Medicine 03/16/20 Olga Villareal MD [address] [place] [address] [phone] Specialist Cardiology 07/18/21 Rafy Dawkins PA [address] [place] [address] Specialist Cardiology 07/18/21 05/13/24 Alana Quiñonez, JOVANNA [address] [place] [address] [facility] [place] [address] Cardiology 10/21/23 documented as of this encounter
== END 2024-11-18 14:00 | disposition home or self-care (01) ==
LOC: HO.HSMS 12:37
PROVIDERS: PCP Internal Medicine; Visit Provider Nurse Practitioner Family
DX: R25.1 Tremor, unspecified (principal); F41.9 Anxiety disorder, unspecified
CPT/HCPCS: 99214

== ENCOUNTER → 2024-11-18 12:37 | Outpatient (BNVA) | payer MEDICARE, MEDICAID, SELFPAY | PROVIDERS: PCP Internal Medicine; Visit Provider Nurse Practitioner Family | DX: R25.1 Tremor, unspecified (principal); F41.9 Anxiety disorder, unspecified | CPT/HCPCS: 99212 ==

== ENCOUNTER 2025-05-23 14:28 | Outpatient (AMB) | payer MEDICARE, MEDICAID, SELFPAY ==
[2025-05-23 14:45] VITALS: BP 130/62; PULSE 60; O2SAT 93; BMI 28.1
--- NOTE | 2025-05-23 14:45 | MHC.OFFVIS ---
Vital Signs 05/23/25 14:45 Height 5 ft 8 in Weight 185 lb BMI 28.1 BP 130/62 Blood Pressure Location Rt brachial Position Sitting Pulse 60 Pulse Source Pulse Oximeter Pulse Oximetry (%) 93 Oxygen Delivery Method Room Air Intake Visit Reasons: 6 Month F/U Intake Note: Patient presents follow up Tremors Herpetologist Required: No Allergies morphine Allergy (Severe, Verified 11/18/24 13:07) Nausea oxycodone (From PERCOCET) Allergy (Intermediate, Verified 11/18/24 13:07) VOMITING acetaminophen (Percocet) Allergy (Unknown, Verified 11/18/24 13:07) Rash Medication List - Last Reconciled 05/23/25 by Marti Neely, ZARIA acetaminophen 325 mg PO Q6H PRN albuterol sulfate 90 mcg/actuation 2 inhalations inhalation Q4H PRN aspirin 1 tab PO DAILY atorvastatin 40 mg PO DAILY clorazepate dipotassium 7.5 mg PO BID duloxetine 30 mg PO DAILY 30 days thyyheynvnl-ikkkierej-hkeyqiqn 100-62.5-25 mcg (Trelegy Ellipta) 1 ea inhalation DAILY gabapentin 200 mg PO BID labetalol 100 mg PO BID latanoprost 0.005% 1 drp ophthalmic (eye) BEDTIME lorazepam 0.5 mg PO DAILY PRN losartan 50 mg PO DAILY nitroglycerin 0.4 mg sublingual omeprazole 40 mg PO DAILY Oxygen Home Use 2.5L pantoprazole 40 mg PO DAILY tamsulosin 0.4 mg PO DAILY zolpidem 5 mg PO BEDTIME PRN HPI Comments Details: 85-yr-old male presents for f/u visit of tremor, balance issues, and mood. Pt denies any intevral medical changes, other than: He did switch the citalopram to duloxetine- and is tolerating well. He notices his tremor when he drinks his coffee and when he eats, not affecting his ability to eat or drink. He had a f/u echocardiogram today at Cardiology. He states his GI s/s have improved, however now needs to have f/u endoscopy every 3 years.GI is [place] at [facility]. Now taking turmeric based smoothies. ADL's: Ind Swallowing: Denies any issues Cough: Denies Drooling: Denies any issues Orthostatic lightheadedness: Rarely- last Eddie felt dizzy when he got out of his car. Notes cardiology previously decreased his BP meds as he was having increased orthostatic dizziness- and this has been better since. Constipation: Denies any issues Urinary symptoms: No issues. He is being followed by renal and urology- states everything is stable. Tremor: as above Dyskinesia: Denies Stiffness: Denies at this time Gait changes: Feels his balance is good. Tries to run short distances on the grass. Freezing: Denies Falls: Fell 1-2 weekends ago- tripped walking over a fence, no significant injuries. Mood: sometimes may feel depresed/anxious- using clorazepate Hallucinations: Denies Memory: Mild forgetfulness- thinks it is age related Sleep: Sleeping well w/ zolpidem, but tosses and turns some, has nocturia. Denies parasomnias. 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 Socialization: He continues to see his girlfriend Magda- though states this has caused some tension with his children. [facility] Medical History (Updated 11/18/24 @ 18:46 by ZARIA Cazares) Caregiver burden Trigeminal neuralgia Insomnia Erectile dysfunction Seizure DJD (degenerative joint disease) Hypercholesteremia GERD (gastroesophageal reflux disease) HTN (hypertension) Gout HLD (hyperlipidemia) Thoracic aortic aneurysm Moderate obstructive sleep apnea Chronic bronchitis CAD (coronary artery disease) ANTONY and COPD overlap syndrome Lumbar spinal stenosis Bilateral high frequency sensorineural hearing loss Surgical History H/O aortic valve repair Hx of appendectomy Hx of nasal septoplasty Hx of tonsillectomy Hx of cataract surgery History of carpal tunnel release Family History Mother Myocardial infarction Father Cirrhosis with alcoholism Maternal Grandmother Coronary artery disease Maternal Grandmother Coronary artery disease Brother No problems noted. Brother No problems noted. Brother No problems noted. Social History Patient Tobacco Use Status: Former Tobacco user Physical Exam Vital Signs: Last Vital Signs Pulse 60 05/23/25 14:45 BP 130/62 05/23/25 14:45 Pulse Ox 93 05/23/25 14:45 Oxygen Delivery Method Room Air 05/23/25 14:45 BMI result Body Mass Index 28.1 Const General: cooperative and no acute distress Resp Effort & Inspection: normal respiratory effort and able to speak in complete sentences Neuro Other: General: A&O x's 3 Expression: Intact Voice: Hoarse at times Tremor: Very mild LUE postural tremor. Tone: Mild BUE tone and elbows Dyskinesia: None FFM: Slight decreased some left. Foot taps: Slight decrease on left Gait: Stands easily, good stride, stride okay, overall steady gait Psych: Pleasant affect Assessment & Plan Assessment & Plan (1) Tremor: Comment: Possible ET plus with BUE left greater than right tremor, mild rigidity in elbows, mild left bradykinesia. Code(s): R25.1 - Tremor, unspecified Category: Medical (2) Anxiety: Code(s): F41.9 - Anxiety disorder, unspecified Category: Medical Plan Continue duloxetine 30 mg daily in morning. Continue clorazepate 7.5mg bid prn. Balance has improved, we will contineu to hold on PT order for now. Continue regular physical activity- within cardiology's recommendations. Continue regular cognitive and socially stimulating activities. Tremor is mild, would not initiate anti tremor medication at this time. However if worsens, encouraged to use a covered coffee cup whenever drinking hot beverages. Follow-up with Cardiology, Nephrology, and GI as scheduled. Will follow-up upon review of above and patient to follow-up in clinic in 6-9 months or sooner prn. Coding Level of Care Code Est Pt Level 4 (02310) Diagnoses Tremor R25.1 Anxiety F41.9
--- OUTSIDE RECORDS SUMMARY | 2025-05-23 16:57 | XMS_ITS | Patient Health Record ---
Demographics Address [address] [place] [id number] Mobile Email Address Preferred Language en Marital Status unmarried Bahai Affiliation Unknown Race White Ethnic Group Not or Lati no
--- OUTSIDE RECORDS SUMMARY | 2025-05-23 16:57 | XMS_ITS | Clinical Summary ---
Demographics Address [address] [place] [phone] Home Phone Email Address Preferred Language Welsh Marital Status Advent Affiliation Unknown Race White Ethnic Group Not or Lati no
== END 2025-05-23 15:53 | disposition home or self-care (01) ==
LOC: HO.HSMS 14:29
PROVIDERS: PCP Internal Medicine; Visit Provider Nurse Practitioner Family
DX: R25.1 Tremor, unspecified (principal); F41.9 Anxiety disorder, unspecified
CPT/HCPCS: 99214

== ENCOUNTER → 2025-05-23 14:28 | Outpatient (BNVA) | payer MEDICARE, MEDICAID, SELFPAY | PROVIDERS: PCP Internal Medicine; Visit Provider Nurse Practitioner Family | DX: R26.89 Other abnormalities of gait and mobility (principal); R25.1 Tremor, unspecified; F41.9 Anxiety disorder, unspecified | CPT/HCPCS: 99212 ==